=== PATIENT | female | born 1995 | race Hispanic/Latino ===

== ENCOUNTER 2017-10-29 20:06 | Emergency (ER) | payer SELFPAY ==
[2017-10-29 21:28] LABS: Urine Blood 1+ (NEG); Urine Glucose NEGATIVE (NEG); Urine Protein TRACE (NEG); Urine Specific Gravity 1.025 (1.005-1.030); Urine pH 6.5 (5.0-7.0)
[2017-10-29] MEDS ORDERED: ONDANSETRON 4 MG/2 ML VIAL ONE (21:33)
[2017-10-29] MEDS ORDERED: MORPHINE 4 MG/ML SYR ONE (21:33)
[2017-10-29] MEDS ORDERED: NA CHLORIDE 0.9% 1,000 ML ONE (21:33)
[2017-10-29 21:35] LABS: Absolute Lymphocytes (CBC) 1.4 K/uL (0.7-4.9); Absolute Monocytes 0.5 K/uL (0.1-1.3); Absolute Neutrophil 9.6 K/uL (1.8-8.0); Basophils % 0.3 % (0-1.3); Eosinophils % 0.3 % (0-4.4); Hematocrit 43.1 % (36.0-45.0); Lymphocytes % 12.5 % (15.3-44.8); MCH 30.1 pg (27.0-35.0); MCV 89.2 fL (80-100); MPV 10.3 fL (7.6-11.3); Monocytes % 4.1 % (3.3-12.3); RBC Red Blood Cell Count 4.83 M/uL (3.86-4.86)
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
[2017-10-29 21:48] LABS: BUN Blood Urea Nitrogen 15 mg/dL (6-20); Bicarbonate 25 mEq/L (21-31); Glucose Level 95 mg/dL (65-120); Potassium 3.8 mEq/L (3.6-5.0); Sodium Level 135 mEq/L (135-145)
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
[2017-10-29 22:28] VITALS: TEMP 98.1
[2017-10-29 22:30] VITALS: BP 126/87; O2SAT 98
== END 2017-10-29 22:11 | disposition home or self-care (01) ==
LOC: ER 20:06
DX: N39.0 Urinary tract infection, site not specified (principal); M62.838 Other muscle spasm
CPT/HCPCS: 36415; 70450; 72125; 80048; 81003; 81025; 85025; 96361; 96374; 96375; 99284; J2405; J7030

== ENCOUNTER 2018-01-19 12:27 | Emergency (ER) | payer OTHER, SELFPAY ==
[2018-01-19] MEDS ORDERED: NA CHLORIDE 0.9% 1,000 ML ONE (13:35)
[2018-01-19 13:44] LABS: Absolute Lymphocytes (CBC) 1.6 K/uL (0.7-4.9); Absolute Monocytes 0.5 K/uL (0.1-1.3); Absolute Neutrophil 6.5 K/uL (1.8-8.0); Basophils % 0.5 % (0-1.3); Eosinophils % 0.5 % (0-4.4); Hematocrit 40.2 % (36.0-45.0); Lymphocytes % 17.9 % (15.3-44.8); MCH 30.2 pg (27.0-35.0); MCV 90.7 fL (80-100); MPV 10.8 fL (7.6-11.3); Monocytes % 5.9 % (3.3-12.3); RBC Red Blood Cell Count 4.43 M/uL (3.86-4.86)
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
--- NOTE | 2018-01-19 16:53 | EDPHYS ---
Physician Documentation [facility] Name: Apolonia Montero Age: 22 yrs Sex: Female : 1995 Arrival Date: 01/19/2018 Time: 12:29 Bed 8 Private MD: None, None ED Physician Pernell Meza HPI: 01/19 13:38 This 22 yrs old Female presents to ER via Ambulatory with complaints of lawrence PREG,ABD CRAMPING LMP 12/01/17. 13:38 The patient presents with abdominal pain in the upper abdomen, in the lower abdomen. lawrence Onset: The symptoms/episode began/occurred 2 day(s) ago. The patient presents to the emergency department with possible uterine contractions. The estimated gestational age is 8 weeks. Associated signs and symptoms: The patient has no apparent associated signs or symptoms. 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 - Social history:: Smoking status: Patient/guardian denies using tobacco, Patient/guardian denies using alcohol, street drugs. - Ebola Screening: : Patient negative for fever greater than or equal to 101.5 degrees Fahrenheit, and additional compatible Ebola Virus Disease symptoms Patient denies exposure to infectious person Patient denies travel to an Ebola-affected area in the 21 days before illness onset No symptoms or risks identified at this time. - Family history:: not pertinent. ROS: 13:38 Constitutional: Negative for fever, chills, and weight loss, Eyes: Negative for injury, lawrence pain, redness, and discharge, ENT: Negative for injury, pain, and discharge, Neck: Negative for injury, pain, and swelling, Cardiovascular: Negative for chest pain, palpitations, and edema, Respiratory: Negative for shortness of breath, cough, wheezing, and pleuritic chest pain, Abdomen/GI: Negative for abdominal pain, nausea, vomiting, diarrhea, and constipation, Back: Negative for injury and pain, : Negative for injury, bleeding, discharge, and swelling, MS/Extremity: Negative for injury and deformity, Skin: Negative for injury, rash, and discoloration, Neuro: Negative for headache, weakness, numbness, tingling, and seizure, Psych: Negative for depression, anxiety, suicide ideation, homicidal ideation, and hallucinations, Allergy/Immunology: Negative for hives, rash, and allergies, Endocrine: Negative for neck swelling, polydipsia, polyuria, polyphagia, and marked weight changes, Hematologic/Lymphatic: Negative for swollen nodes, abnormal bleeding, and unusual bruising. Exam: 13:38 Constitutional: This is a well developed, well nourished patient who is awake, alert, lawrence and in no acute distress. Head/Face: Normocephalic, atraumatic. Eyes: Pupils equal round and reactive to light, extra-ocular motions intact. Lids and lashes normal. Conjunctiva and sclera are non-icteric and not injected. Cornea within normal limits. Periorbital areas with no swelling, redness, or edema. ENT: Nares patent. No nasal discharge, no septal abnormalities noted. Tympanic membranes are normal and external auditory canals are clear. Oropharynx with no redness, swelling, or masses, exudates, or evidence of obstruction, uvula midline. Mucous membranes moist. Neck: Trachea midline, no thyromegaly or masses palpated, and no cervical lymphadenopathy. Supple, full range of motion without nuchal rigidity, or vertebral point tenderness. No Meningismus. Chest/axilla: Normal chest wall appearance and motion. Nontender with no deformity. No lesions are appreciated. Cardiovascular: Regular rate and rhythm with a normal S1 and S2. No gallops, murmurs, or rubs. Normal PMI, no JVD. No pulse deficits. Respiratory: Lungs have equal breath sounds bilaterally, clear to auscultation and percussion. No rales, rhonchi or wheezes noted. No increased work of breathing, no retractions or nasal flaring. Abdomen/GI: Soft, non-tender, with normal bowel sounds. No distension or tympany. No guarding or rebound. No evidence of tenderness throughout. Back: No spinal tenderness. No costovertebral tenderness. Full range of motion. Skin: Warm, dry with normal turgor. Normal color with no rashes, no lesions, and no evidence of cellulitis. MS/ Extremity: Pulses equal, no cyanosis. Neurovascular intact. Full, normal range of motion. Neuro: Awake and alert, GCS 15, oriented to person, place, time, and situation. Cranial nerves II-XII grossly intact. Motor strength 5/5 in all extremities. Sensory grossly intact. Cerebellar exam normal. Normal gait. Psych: Awake, alert, with orientation to person, place and time. Behavior, mood, and affect are within normal limits. Vital Signs: 12:40 BP 137 / 83; Pulse 72; Resp 18; Temp 97.8; Pulse Ox 99% on R/A; Weight 95.25 kg; Height ch 5 ft. 5 in. (165.10 cm); Pain 0/10; 14:23 BP 101 / 53; Pulse 69; Resp 18; Pulse Ox 99% ; sv 15:20 BP 106 / 60; Pulse 81; Resp 16; Pulse Ox 100% on R/A; tw2 16:22 BP 129 / 68; Pulse 77; Resp 17; Pulse Ox 100% on R/A; tw2 17:00 BP 106 / 64; Pulse 83; Resp 18; Pulse Ox 99% ; sv 18:40 BP 112 / 60; Pulse 80; Resp 16; Pulse Ox 98% ; sv 12:40 Body Mass Index 34.95 (95.25 kg, 165.10 cm) MDM: 13:13 Patient medically screened. [facility] 13:39 Data reviewed: vital signs, nurses notes, lab test result(s), radiologic studies, lawrence ultrasound. 01/19 13:14 Order name: Quantitative Hcg; Complete Time: 18:39 [facility] 01/19 13:14 Order name: Abo/rh Typing; Complete Time: 14:53 [facility] 01/19 13:14 Order name: Basic Metabolic Panel; Complete Time: 18:39 [facility] 01/19 13:14 Order name: CBC with Diff; Complete Time: 14:53 [facility] 01/19 13:14 Order name: Urine Culture [facility] 01/19 13:37 Order name: LFT's; Complete Time: 18:39 [facility] 01/19 12:41 Order name: Urine Dipstick-Ancillary (obtain specimen); Complete Time: 13:00 01/19 12:41 Order name: Urine Test (obtain specimen); Complete Time: 13:00 01/19 13:14 Order name: IV Saline Lock; Complete Time: 13:27 [facility] 01/19 13:14 Order name: Labs collected and sent; Complete Time: 13:28 [facility] 01/19 13:14 Order name: US Transvaginal Ob; Complete Time: 15:15 [facility] 01/19 13:37 Order name: Lipase; Complete Time: 18:39 [facility] 01/19 16:09 Order name: ABO/RH no charge; Complete Time: 16:22 [facility] 01/19 13:14 Order name: NPO; Complete Time: 13:28 [facility] Administered Medications: 13:42 Drug: NS 0.9% 1000 ml Route: IV; Rate: 1 bolus; Site: right antecubital; tw2 15:00 Follow up: Response: No adverse reaction; IV Status: Completed infusion; IV Intake: tw2 1000ml Disposition: 01/19/18 16:52 Discharged to Home. Impression: related conditions, unspecified, first trimester, Cystitis. - Condition is Stable. - Discharge Instructions: Dysuria, First Trimester of , [id number], First Trimester of , Pelvic Rest. - Prescriptions for Vitamin 27- 0.8 mg Oral Tablet - take 1 tablet by ORAL route once daily; 30 tablet. Macrobid 100 mg Oral Capsule - take 1 capsule by ORAL route every 12 hours for 7 days; 14 capsule. - Medication Reconciliation Form, Thank You Letter, Antibiotic Education, Prescription Opioid Use, Work release form form. - Follow up: Private Physician; When: 2 - 3 days; Reason: Recheck today's complaints, Continuance of care, Re-evaluation by your physician. Follow up: Ziyad Pastor; When: 2 - 3 days; Reason: Recheck today's complaints, Re-evaluation by your physician. - Problem is new. - Symptoms have improved. Signatures: Dispatcher [employer] EDElisa Flores RN RN ch Anderson, Corey, MD MD cha Wise, Tara RN RN tw2 Corrections: (The following items were deleted from the chart) 18:58 16:52 01/19/2018 16:52 Discharged to Home. Impression: related conditions, tw2 unspecified, first trimester; Cystitis. Condition is Stable. Discharge Instructions: Dysuria, First Trimester of , [id number], First Trimester of , Pelvic Rest. Prescriptions for Vitamin 27-0.8 mg Oral Tablet - take 1 tablet by ORAL route once daily; 30 tablet, Macrobid 100 mg Oral Capsule - take 1 capsule by ORAL route every 12 hours for 7 days; 14 capsule. and Forms are Medication Reconciliation Form, Thank You Letter, Antibiotic Education, Prescription Opioid Use. Follow up: Private Physician; When: 2 - 3 days; Reason: Recheck today's complaints, Continuance of care, Re-evaluation by your physician. Follow up: Ziyad Pastor; When: 2 - 3 days; Reason: Recheck today's complaints, Re-evaluation by your physician. Problem is new. Symptoms have improved. lawrence
--- NOTE | 2018-01-19 16:53 | ER ---
Nurse's Notes [facility] Name: Apolonia Montero Age: 22 yrs Sex: Female : 1995 Arrival Date: 01/19/2018 Time: 12:29 Bed 8 Private MD: None, None Diagnosis: related conditions, unspecified, first trimester;Cystitis Presentation: 01/19 12:38 Presenting complaint: Patient states: PAIN TO EPIGASTRIC, MICHAEL SIDES OF ABDOMEN, MICHAEL ch "OVARIES" ALTERNATING, PINCHING TO "SIDE OF VAGINA" R SIDE. 12:39 Transition of care: patient was not received from another setting of care. Onset of ch symptoms was January 17, 2018. Risk Assessment: Do you want to hurt yourself or someone else? Patient reports no desire to harm self or others. Initial Sepsis Screen: Does the patient meet any 2 criteria? No. Patient's initial sepsis screen is negative. Does the patient have a suspected source of infection? No. Patient's initial sepsis screen is negative. Care prior to arrival: None. 12:39 Method Of Arrival: Ambulatory 12:39 Acuity: APRYL 3 ch Triage Assessment: 12:40 General: Appears in no apparent distress. comfortable, Behavior is calm, cooperative, ch appropriate for age. Pain: Complains of pain in epigastric area, anterior aspect of right lateral abdomen, anterior aspect of left lateral abdomen, right upper quadrant, left upper quadrant and pelvis Pain currently is 0 out of 10 on a pain scale. at worst was 8 out of 10 on a pain scale. Neuro: No deficits noted. 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 - Social history:: Smoking status: Patient/guardian denies using tobacco, Patient/guardian denies using alcohol, street drugs. - Ebola Screening: : Patient negative for fever greater than or equal to 101.5 degrees Fahrenheit, and additional compatible Ebola Virus Disease symptoms Patient denies exposure to infectious person Patient denies travel to an Ebola-affected area in the 21 days before illness onset No symptoms or risks identified at this time. - Family history:: not pertinent. Screenin:06 Abuse screen: Denies threats or abuse. Nutritional screening: No deficits noted. tw2 Tuberculosis screening: No symptoms or risk factors identified. Fall Risk None identified. Assessment: 13:04 Reassessment: pt instructed NPO at this time. General: Appears in no apparent distress. tw2 distressed, comfortable. Pain: Complains of pain in pelvis and left upper quadrant and right upper quadrant and epigastric area. Neuro: Level of Consciousness is awake, alert, obeys commands, Oriented to person, place, time, situation. Cardiovascular: Denies chest pain, shortness of breath, Heart tones S1 S2 Patient's skin is warm and dry. Respiratory: Airway is patent Respiratory effort is even, unlabored, Respiratory pattern is regular, symmetrical. GI: Abdomen is flat, Bowel sounds present X 4 quads. Reports lower abdominal pain, upper abdominal pain, nausea. : Reports white vaginal discharge at times. EENT: No signs and/or symptoms were reported regarding the EENT system. Derm: No signs and/or symptoms reported regarding the dermatologic system. Musculoskeletal: Range of motion: intact in all extremities. 14:10 Reassessment: Patient appears in no apparent distress at this time. No changes from tw2 previously documented assessment. Patient and/or family updated on plan of care and expected duration. Pain level reassessed. Patient is alert, oriented x 3, equal unlabored respirations, skin warm/dry/pink. 15:20 Reassessment: Patient appears in no apparent distress at this time. No changes from tw2 previously documented assessment. Patient and/or family updated on plan of care and expected duration. Pain level reassessed. Patient is alert, oriented x 3, equal unlabored respirations, skin warm/dry/pink. 16:23 Reassessment: Patient appears in no apparent distress at this time. No changes from tw2 previously documented assessment. Patient and/or family updated on plan of care and expected duration. Pain level reassessed. Patient is alert, oriented x 3, equal unlabored respirations, skin warm/dry/pink. 17:55 Reassessment: Patient appears in no apparent distress at this time. No changes from tw2 previously documented assessment. Patient and/or family updated on plan of care and expected duration. Pain level reassessed. Patient is alert, oriented x 3, equal unlabored respirations, skin warm/dry/pink. 18:55 Reassessment: Patient appears in no apparent distress at this time. No changes from tw2 previously documented assessment. Patient and/or family updated on plan of care and expected duration. Pain level reassessed. Patient is alert, oriented x 3, equal unlabored respirations, skin warm/dry/pink. Vital Signs: 12:40 BP 137 / 83; Pulse 72; Resp 18; Temp 97.8; Pulse Ox 99% on R/A; Weight 95.25 kg; Height ch 5 ft. 5 in. (165.10 cm); Pain 0/10; 14:23 BP 101 / 53; Pulse 69; Resp 18; Pulse Ox 99% ; sv 15:20 BP 106 / 60; Pulse 81; Resp 16; Pulse Ox 100% on R/A; tw2 16:22 BP 129 / 68; Pulse 77; Resp 17; Pulse Ox 100% on R/A; tw2 17:00 BP 106 / 64; Pulse 83; Resp 18; Pulse Ox 99% ; sv 18:40 BP 112 / 60; Pulse 80; Resp 16; Pulse Ox 98% ; sv 12:40 Body Mass Index 34.95 (95.25 kg, 165.10 cm) ED Course: 12:29 Patient arrived in ED. sb2 12:30 None, None is Private Physician. sb2 12:39 Triage completed. ch 12:40 Arm band placed on left wrist. Patient placed in waiting room. ch 12:59 Almita Pandya, RN is Primary Nurse. tw2 13:06 Bed in low position. Call light in reach. Adult w/ patient. Pulse ox on. NIBP on. tw2 13:13 Pernell Meza MD is Attending Physician. lawrence 13:17 Radiology exam delayed due to lab results not completed at this time. (HCG). lc3 13:24 Inserted saline lock: 22 gauge in right antecubital area, using aseptic technique. tw2 Blood collected. 13:40 US Transvaginal Ob In Process Unspecified. EDMS 16:52 Ziyad Pastor MD is Referral Physician. lawrence 17:11 Awaiting lab results, Awaiting: prior to discharge. tw2 17:45 Awaiting lab results, Awaiting: spoke with Mara Acosta in lab checking on results on tw2 lipase and lfts, 20 minutes needed for additional results, provider notified. 18:58 No provider procedures requiring assistance completed. IV discontinued, intact, tw2 bleeding controlled, No redness/swelling at site. Pressure dressing applied. Administered Medications: 13:42 Drug: NS 0.9% 1000 ml Route: IV; Rate: 1 bolus; Site: right antecubital; tw2 15:00 Follow up: Response: No adverse reaction; IV Status: Completed infusion; IV Intake: tw2 1000ml Intake: 15:00 IV: 1000ml; Total: 1000ml. tw2 Outcome: 16:52 Discharge ordered by MD. bravo 18:58 Patient left the ED. tw2 18:58 Discharged to home ambulatory. tw2 18:58 Condition: stable 18:58 Discharge instructions given to patient, Instructed on discharge instructions, follow up and referral plans. medication usage, Demonstrated understanding of instructions, follow-up care, medications, Prescriptions given X 2. Addendum: 01/22/2018 07:45 Addendum: Culture Results: Positive urine culture. No further action required. Bacteria i w sensitive to prescribed antibiotic. Signatures: Dispatcher [employer] EDElisa Flores, RN RN Silvia Emery RN RN sv Anderson, Corey, MD MD cha Williams, Irene, RN RN iw Cunningham, Laulita lc3 Wise, Tara, RN RN tw2 Chayito Escobar sb2
[2018-01-19 17:56] LABS: BUN Blood Urea Nitrogen 10 mg/dL (7-18); Bicarbonate 25 mmol/L (21-32); Glucose Level 81 mg/dL (74-106); Potassium 3.7 mmol/L (3.5-5.1); Sodium Level 136 mmol/L (136-145)
[2018-01-19 18:32] LABS: HCG, Quantitative 4613 mIU/mL (1-3)
[2018-01-19 18:36] LABS: ALT/SGPT 16 U/L (12-78); AST/SGOT 18 U/L (15-37); Albumin 3.9 g/dL (3.4-5.0); Alkaline Phosphatase 83 U/L (45-117); Bilirubin Direct < 0.1 mg/dL (0-0.2); Bilirubin Total 0.4 mg/dL (0.2-1.0); Lipase 121 U/L (73-393); Protein, Total 7.1 g/dL (6.4-8.2)
[2018-01-19 19:05] VITALS: TEMP 97.8
[2018-01-19 19:11] VITALS: BP 112/60; O2SAT 98
== END 2018-01-19 18:58 | disposition home or self-care (01) ==
LOC: ER 12:27
DX: O23.11 Infections of bladder in pregnancy, first trimester (principal)
CPT/HCPCS: 36415; 76817; 80048; 80076; 83690; 84702; 85025; 86900; 86901; 87077; 87086; 87088; 87186; 96360; 99284; J7030

== ENCOUNTER 2019-01-02 13:19 | Emergency (ER) | payer OTHER, SELFPAY ==
--- OUTSIDE RECORDS SUMMARY | 2019-01-02 13:22 | XMS REPORT ---
:1995 [facility] [address] [place] [id number] Care Team Providers Name Role Phone Unavailable Unavailable Unavailable Problems This patient has no known problems. Allergies, Adverse Reactions, Alerts This patient has no known allergies or adverse reactions. Medications This patient has no known medications.
[2019-01-02 13:50] LABS: Urine Blood NEGATIVE (NEG); Urine Glucose NEGATIVE (NEG); Urine Protein NEGATIVE (NEG); Urine Specific Gravity 1.025 (1.005-1.030)
[2019-01-02] MEDS ORDERED: ONDANSETRON 4 MG/2 ML VIAL ONE (14:02)
[2019-01-02] MEDS ORDERED: NA CHLORIDE 0.9% 1,000 ML ONE (14:02)
[2019-01-02] MEDS ORDERED: KETOROLAC 30 MG/ML INJ ONE (14:02)
[2019-01-02 14:22] LABS: Absolute Lymphocytes (CBC) 1.9 K/uL (0.7-4.9); Basophils % 0.8 % (0-1.3); Lymphocytes % 26.2 % (15.3-44.8); MPV 11.4 fL (7.6-11.3); RBC Red Blood Cell Count 4.29 M/uL (3.86-4.86)
[2019-01-02 14:35] LABS: ALT/SGPT 18 U/L (12-78); AST/SGOT 14 U/L (15-37); Albumin 3.8 g/dL (3.4-5.0); Alkaline Phosphatase 94 U/L (45-117); BUN Blood Urea Nitrogen 13 mg/dL (7-18); Bicarbonate 28 mmol/L (21-32); Bilirubin Direct < 0.1 mg/dL (0-0.2); Bilirubin Total 0.1 mg/dL (0.2-1.0); Glucose Level 83 mg/dL (74-106); Lipase 151 U/L (73-393); Potassium 4.2 mmol/L (3.5-5.1); Protein, Total 7.3 g/dL (6.4-8.2); Sodium Level 145 mmol/L (136-145)
[2019-01-02] MEDS ORDERED: CEFTRIAXONE/SWI 1gm 1 GM/10 ML SYR ONE (15:17)
--- NOTE | 2019-01-02 16:20 | ER ---
Nurse's Notes [facility] Name: Apolonia Montero Age: 23 yrs Sex: Female : 1995 Arrival Date: 01/02/2019 Time: 13:23 Bed 20 Private MD: Diagnosis: Female pelvic inflammatory disease, unspecified Presentation: 01/02 13:25 Presenting complaint: Patient states: im having bad pain on my bladder area, hj (suprapubic area), it doesn't burn when i pee, its been on and off for a couple of weeks now; denies fever and chills; reports nausea;. Transition of care: patient was not received from another setting of care. Onset of symptoms was January 02, 2019. Risk Assessment: Do you want to hurt yourself or someone else? Patient reports no desire to harm self or others. Initial Sepsis Screen: Does the patient meet any 2 criteria? No. Patient's initial sepsis screen is negative. Does the patient have a suspected source of infection? No. Patient's initial sepsis screen is negative. Care prior to arrival: None. 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 Nutritional screening: No deficits noted. em Tuberculosis screening: No symptoms or risk factors identified. Fall Risk None identified. Assessment: 13:44 General: Appears in no apparent distress. uncomfortable, Behavior is calm, cooperative, em Denies fever. Pain: Complains of pain in suprapubic area Pain currently is 8 out of 10 on a pain scale. Neuro: Level of Consciousness is awake, alert, obeys commands, Oriented to person, place, time, situation. Cardiovascular: Capillary refill < 3 seconds Patient's skin is warm and dry. Respiratory: Airway is patent Respiratory effort is even, unlabored, Respiratory pattern is regular, symmetrical. : Reports discharge, Denies burning with urination, vaginal bleeding. Derm: Skin is intact, is healthy with good turgor, Skin is pink, warm \T\ dry. Musculoskeletal: Capillary refill < 3 seconds, Range of motion: intact in all extremities. 13:44 GI: Abdomen is flat, Patient currently denies nausea, vomiting. em 14:41 Reassessment: Patient appears in no apparent distress at this time. Patient and/or em family updated on plan of care and expected duration. Pain level reassessed. Patient is alert, oriented x 3, equal unlabored respirations, skin warm/dry/pink. rates pain 4/10 Patient states feeling better. Patient states symptoms have improved. 16:33 Reassessment: Patient appears in no apparent distress at this time. Patient and/or em family updated on plan of care and expected duration. Pain level reassessed. Patient is alert, oriented x 3, equal unlabored respirations, skin warm/dry/pink. Patient denies pain at this time. Patient states feeling better. Vital Signs: 13:27 BP 114 / 68; Pulse 62; Resp 18; Temp 98.4(O); Pulse Ox 100% on R/A; Weight 86.18 kg; hj Height 5 ft. 5 in. (165.10 cm); Pain 8/10; 14:41 BP 116 / 80; Pulse 71; Resp 18; Pulse Ox 99% on R/A; Pain 4/10; em 16:34 BP 112 / 68; Pulse 81; Resp 16; Pulse Ox 99% on R/A; Pain 0/10; em 13:27 Body Mass Index 31.62 (86.18 kg, 165.10 cm) ED Course: 13:23 Patient arrived in ED. mr 13:27 Triage completed. hj 13:27 Arm band placed on left wrist. hj 13:33 Jaxson Perez LVN is Primary Nurse. em 13:35 Pernell Berman PA is PHCP. cp 13:35 Rashard Frazier MD is Attending Physician. cp 13:43 Patient has correct armband on for positive identification. Placed in gown. Bed in low em position. Call light in reach. Pulse ox on. NIBP on. 14:30 Assist provider with pelvic exam: Set up pelvic tray. Performed by Pernell GROSSMAN iw Specimens sent to lab. Patient tolerated well. 16:05 Ultrasound completed. Patient tolerated well. Notified AUTOMATION TEST DEVELOPER/PA page. sg3 16:05 US Transvaginal Study (Probe) In Process Unspecified. EDMS 16:48 IV discontinued, intact, bleeding controlled, No redness/swelling at site. Pressure em dressing applied. Administered Medications: 13:58 CANCELLED (Physician Discretion): morphine 2 mg IVP once cp 14:10 Drug: NS 0.9% 1000 ml Route: IV; Rate: 1 bolus; Site: right antecubital; em 16:35 Follow up: IV Status: Completed infusion; IV Intake: 1000ml em 14:10 Drug: TORadol 30 mg Route: IVP; Site: right antecubital; iw 15:13 Follow up: Response: No adverse reaction; Pain is decreased em 15:24 Not Given (Patient Refused): Zofran 4 mg IVP once; over 2 minutes em 15:29 Drug: Rocephin - (cefTRIAXone) 1 grams Route: IVPB; Infused Over: 30 mins; Site: right iw antecubital; 16:35 Follow up: Response: No adverse reaction; IV Status: Completed infusion; IV Intake: 10mlem Intake: 16:35 IV: 10ml; Total: 10ml. em 16:35 IV: 1000ml; Total: 1010ml. em Outcome: 16:19 Discharge ordered by MD. cp 16:48 Discharged to home ambulatory. em 16:48 Condition: good 16:48 Discharge instructions given to patient, Instructed on discharge instructions, follow up and referral plans. medication usage, Demonstrated understanding of instructions, follow-up care, medications, Prescriptions given X 5 16:49 Patient left the ED. em Signatures: Dispatcher [employer] EDID Kim Ortez, Jaxsno, HOUSEKEEPING ASSOCIATE HOUSEKEEPING ASSOCIATE em Yudith Richard RN RN iw Sahil Gonzales RN RN hj Page, Corey, PA PA cp Godinez, Sarah sg3 Corrections: (The following items were deleted from the chart) 13:30 13:27 Pulse 62bpm; Resp 18bpm; Pulse Ox 100% RA; Temp 98.4F Oral; 86.18 kg; Height 5 hj ft. 5 in.; BMI: 31.6; Pain 8/10; hj
--- NOTE | 2019-01-02 16:20 | EDPHYS ---
Physician Documentation [facility] Name: Apolonia Montero Age: 23 yrs Sex: Female : 1995 Arrival Date: 01/02/2019 Time: 13:23 Bed 20 Private MD: ED Physician Rashard Frazier HPI: 01/02 13:50 This 23 yrs old Female presents to ER via Ambulatory with complaints of cp Vaginal Pain. 13:50 The patient presents with pelvic pain, vaginal discharge. Onset: The symptoms/episode cp began/occurred 2 week(s) ago. Associated signs and symptoms: Pertinent positives: nausea, Pertinent negatives: constipation, diarrhea, dysuria, fever, vaginal bleeding. Severity of symptoms: in the emergency department the symptoms are unchanged, despite home interventions. 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 cp 14:00 Eyes: Negative for injury, pain, redness, and discharge. cp 14:00 ENT: Negative for drainage from ear(s), ear pain, sore throat, difficulty swallowing, difficulty handling secretions. 14:00 Cardiovascular: Negative for chest pain, palpitations. 14:00 Respiratory: Negative for cough, shortness of breath, wheezing. 14:00 Abdomen/GI: Negative for vomiting, diarrhea, constipation, black/tarry stool, rectal bleeding. 14:00 : Positive for pelvic pain, vaginal discharge, Negative for urinary symptoms, flank pain, vaginal bleeding. 14:00 Skin: Negative for rash. 14:00 All other systems are negative. Exam: 14:50 Head/Face: Normocephalic, atraumatic. cp 14:50 Constitutional: The patient appears in no acute distress, alert, awake, non-toxic, well developed, well nourished, uncomfortable. 14:50 Eyes: Periorbital structures: appear normal, Conjunctiva: normal, no exudate, no injection, Sclera: no appreciated abnormality, Lids and lashes: appear normal, bilaterally. 14:50 ENT: External ear(s): are unremarkable, Nose: is normal, Mouth: Lips: moist, Oral mucosa: moist, Posterior pharynx: is normal, airway is patent, no erythema, no exudate. 14:50 Chest/axilla: Inspection: normal, Palpation: is normal, no crepitus, no tenderness. 14:50 Cardiovascular: Rate: normal, Rhythm: regular. 14:50 Respiratory: the patient does not display signs of respiratory distress, Respirations: normal, no use of accessory muscles, no retractions, no splinting, no tachypnea, labored breathing, is not present, Breath sounds: are clear throughout, no decreased breath sounds, no stridor, no wheezing. 14:50 Abdomen/GI: Inspection: abdomen appears normal, Bowel sounds: active, all quadrants, Palpation: soft, in all quadrants, moderate abdominal tenderness, in the suprapubic area, rebound tenderness, is not appreciated, voluntary guarding, is elicited in the suprapubic area. 14:50 : Pelvic Exam: External exam: is normal, Speculum exam: no bleeding is noted, os that is closed, bimanual exam reveals cervical motion tenderness, uterine tenderness, right adnexal tenderness, left adnexal tenderness, no adnexal mass on right, no adnexal mass on left, discharge, white, yellow, the nurse was present for the exam. 14:50 Skin: no rash present. Vital Signs: 13:27 BP 114 / 68; Pulse 62; Resp 18; Temp 98.4(O); Pulse Ox 100% on R/A; Weight 86.18 kg; hj Height 5 ft. 5 in. (165.10 cm); Pain 8/10; 14:41 BP 116 / 80; Pulse 71; Resp 18; Pulse Ox 99% on R/A; Pain 4/10; em 16:34 BP 112 / 68; Pulse 81; Resp 16; Pulse Ox 99% on R/A; Pain 0/10; em 13:27 Body Mass Index 31.62 (86.18 kg, 165.10 cm) MDM: 13:41 Patient medically screened. cp 14:00 Differential diagnosis: cervicitis, ectopic , nonspecific abdominal pain, cp ovarian cyst, pelvic inflammatory disease, urinary tract infection, vaginosis. 16:15 Data reviewed: vital signs, nurses notes, lab test result(s), radiologic studies, cp ultrasound. 16:15 Counseling: I had a detailed discussion with the patient and/or guardian regarding: the cp historical points, exam findings, and any diagnostic results supporting the discharge/admit diagnosis, lab results, radiology results, the need for outpatient follow up, an OB/Gyne specialist, to return to the emergency department if symptoms worsen or persist or if there are any questions or concerns that arise at home. Response to treatment: the patient's symptoms have markedly improved after treatment, and as a result, I will discharge patient. Special discussion: Based on the patient's Hx, exam, and Dx evaluation, there is no indication for emergent surgery or inpatient Tx. It is understood by the patient/guardian that if the Sx's persist or worsen they need to return immediately for re-evaluation. 01/02 13:47 Order name: Urine Dipstick--Ancillary (enter results); Complete Time: 14:30 eb 01/02 13:47 Order name: Urine --Ancillary (enter results); Complete Time: 14:30 eb 01/02 13:56 Order name: Basic Metabolic Panel; Complete Time: 14:48 cp 01/02 13:56 Order name: CBC with Diff; Complete Time: 14:30 cp 01/02 14:31 Interpretation: Normal except: HGB 11.2; HCT 35.0; MCV 81.5; MCH 26.1; RDW 17.6; MPV cp 11.4. 01/02 13:56 Order name: Creatinine for Radiology; Complete Time: 14:48 cp 01/02 13:56 Order name: Hepatic Function; Complete Time: 14:48 cp 01/02 13:56 Order name: Lipase; Complete Time: 14:48 cp 01/02 13:58 Order name: GC (GONORR/CHLAMYDIA) Probe cp 01/02 13:58 Order name: Wet Prep; Complete Time: 15:11 cp 01/02 15:11 Interpretation: Reviewed. cp 01/02 14:49 Order name: US Transvaginal Study (Probe) cp 01/02 13:41 Order name: Urine Dipstick-Ancillary (obtain specimen); Complete Time: 13:48 cp 01/02 13:41 Order name: Urine Test (obtain specimen); Complete Time: 13:48 cp 01/02 13:56 Order name: IV Saline Lock; Complete Time: 14:43 cp 01/02 13:56 Order name: Labs collected and sent; Complete Time: 14:43 cp 01/02 13:58 Order name: Pelvic Exam Setup; Complete Time: 15:03 cp Administered Medications: 13:58 CANCELLED (Physician Discretion): morphine 2 mg IVP once cp 14:10 Drug: NS 0.9% 1000 ml Route: IV; Rate: 1 bolus; Site: right antecubital; em 16:35 Follow up: IV Status: Completed infusion; IV Intake: 1000ml em 14:10 Drug: TORadol 30 mg Route: IVP; Site: right antecubital; iw 15:13 Follow up: Response: No adverse reaction; Pain is decreased em 15:24 Not Given (Patient Refused): Zofran 4 mg IVP once; over 2 minutes em 15:29 Drug: Rocephin - (cefTRIAXone) 1 grams Route: IVPB; Infused Over: 30 mins; Site: right iw antecubital; 16:35 Follow up: Response: No adverse reaction; IV Status: Completed infusion; IV Intake: 10mlem Disposition: 17:26 Co-signature as Attending Physician, Rashard Frazier MD. rn Disposition: 01/02/19 16:19 Discharged to Home. Impression: Female pelvic inflammatory disease, unspecified. - Condition is Stable. - Discharge Instructions: Pelvic Inflammatory Disease, Pelvic Pain, Female. - Prescriptions for Zofran 4 mg Oral Tablet - take 1 tablet by ORAL route every 12 hours As needed; 20 tablet. Doxycycline Hyclate 100 mg Oral Tablet - take 1 tablet by ORAL route every 12 hours for 14 days; 28 tablet. Metronidazole 500 mg Oral Tablet - take 1 tablet by ORAL route every 8 hours for 14 days; 42 tablet. Tramadol 50 mg Oral Tablet - take 1 tablet by ORAL route every 8 hours as needed; 15 tablet. Ibuprofen 800 mg Oral Tablet - take 1 tablet by ORAL route every 8 hours As needed take with food; 30 tablet. - Medication Reconciliation Form, Thank You Letter, Antibiotic Education, Prescription Opioid Use form. - Follow up: Private Physician; When: 1 week; Reason: Recheck today's complaints. - Problem is new. - Symptoms have improved. Signatures: Dispatcher [employer] Jaxson Robin, PAINT TINTER PAINT TINTER em Yudith Richard RN RN iw Nieto, Roman, MD MD rn Joaquin, Henry, RN RN hj Page, Corey PA PA cp Corrections: (The following items were deleted from the chart) 13:58 13:58 morphine 2 mg IVP once ordered. cp cp 16:49 16:19 01/02/2019 16:19 Discharged to Home. Impression: Female pelvic inflammatory em disease, unspecified. Condition is Stable. Forms are Medication Reconciliation Form, Thank You Letter, Antibiotic Education, Prescription Opioid Use. Follow up: Private Physician; When: 1 week; Reason: Recheck today's complaints. Problem is new. Symptoms have improved. cp
[2019-01-02 16:55] VITALS: TEMP 98.4
[2019-01-02 16:56] VITALS: O2SAT 99
--- NOTE | 2019-01-02 16:57 | RAD REPORT ---
EXAM DESCRIPTION: US - Transvaginal Study Probe - 01/02/2019 4:07 pm CLINICAL HISTORY: Pelvic pain COMPARISON: none FINDINGS: The uterus measures 7 x 3 x 3cm. A fibroid is not seen. Endometrial stripe measures 14 mil limeters. The ovaries are normal in size and echotexture. The right and left adnexa unremarkable No significant free fluid is seen. IMPRESSION: No significant abnormality is displayed
[2019-01-02 16:58] VITALS: BP 112/68
== END 2019-01-02 16:49 | disposition home or self-care (01) ==
LOC: ER 13:19
DX: N73.9 Female pelvic inflammatory disease, unspecified (principal)
CPT/HCPCS: 36415; 76830; 80048; 80076; 81003; 81025; 83690; 85025; 87210; 87490; 87590; 96361; 96365; 96375; 99284; J0696; J2405; J7030

== ENCOUNTER 2019-04-19 12:39 | Emergency (ER) | payer SELFPAY ==
--- OUTSIDE RECORDS SUMMARY | 2019-04-19 12:41 | XMS REPORT | Summary of Care ---
:1995 Author Organization [facility] Address [address] [place] [id number] Care Team Providers Name Role Phone Hollie Arriaga [facility] Primary Care Provider Reason for Visit Reason Comments Assessment ER Visit Encounter Details Date Type Department Care Team Description 01/04/2019 Telephone [facility]- Hollie Arriaga, Assessment (ER Visit) [facility] [address] [facility] [address] [place], [place] [id number] Allergies Active Allergy Reactions Severity Noted Date Comments Metoclopramide Hcl Anxiety 03/15/2018 documented as of this encounter (statuses as of 01/04/2019) Medications Medication Sig Dispensed Refills Start Date End Date Status proMETHazine 25 mg Take 1 tablet by 30 tablet 0 02/11/2018 Active tabletIndications: mouth every 6 Nausea and vomiting (six) hours as during needed for prior to 22 weeks Nausea and gestation Vomiting (N/V). proMETHazine 25 mg Insert 1 4 Suppository 1 02/28/2018 Active suppository Suppository into rectum every 4 (four) hours as needed for Nausea and Vomiting (N/V). famotidine 20 mg Take 1 tablet by 60 tablet 3 03/04/2018 Active tablet mouth 2 (two) times daily. proCHLORperazine Insert 1 12 Suppository 0 03/15/2018 Active (COMPAZINE) 25 mg Suppository into suppository rectum every 12 (twelve) hours as needed for Nausea and Vomiting (N/V). proCHLORperazine 10 Take 1 tablet by 30 tablet 3 03/16/2018 Active mg tablet mouth every 6 (six) hours as needed for Nausea and Vomiting (N/V). doxylamine-pyridoxine Take 4 tablets 120 tablet 1 03/16/2018 Active , vit B6, (DICLEGIS) by mouth at 10-10 mg per bedtime. Take 1 tabletIndications: tab in the Nausea and vomiting morning, 1 tab during with lunch and 2 prior to 22 weeks tabs at bedtime. gestation documented as of this encounter (statuses as of 01/04/2019) Active Problems Problem Noted Date Glucose tolerance test abnormal 06/18/2018 12 weeks gestation of 03/15/2018 Rubella non-immune status, antepartum 03/11/2018 Dyspepsia 03/04/2018 Obesity in 02/27/2018 UTI (urinary tract infection) during 02/16/2018 Overview: MASHA at next visit -neg Supervision of high risk in third trimester 02/11/2018 Multiparity 02/11/2018 Marijuana use 02/11/2018 Overview: Reports due to nausea Ovarian cyst 02/11/2018 Overview: Per outside us[facility] see external provided records Atypical squamous cells of undetermined significance (ASCUS) on 10/20/2017 Papanicolaou smear of cervix Overview: Repeat pap in 12 months History of depression 10/13/2017 History of anxiety 09/05/2015 Nausea and vomiting during prior to 22 weeks gestation 08/22/2015 documented as of this encounter (statuses as of 01/04/2019) Resolved Problems Problem Noted Date Resolved Date Hyperemesis 03/07/2018 03/10/2018 Dehydration 02/27/2018 03/08/2018 11 weeks gestation of 02/27/2018 03/10/2018 Well woman exam 10/13/2017 02/11/2018 Contraceptive management 10/13/2017 02/11/2018 Nexplanon removal 10/13/2017 02/27/2018 Overview: Per patient reports was only for 2 years History of depression 09/05/2015 10/13/2017 UTI in , antepartum 08/11/2015 10/13/2017 Overview: Still current uti as of 10-06-15 Supervision of high risk , antepartum 08/09/2015 10/13/2017 BV (bacterial vaginosis) 08/09/2015 10/13/2017 documented as of this encounter (statuses as of 01/04/2019) Immunizations Name Administration Dates Next Due Influenza Virus Vaccine Quad .5 mL IM 6+ MO 06/30/2018, 03/19/2018 Influenza Virus Vaccine Quad IM 3+ YRS 08/08/2015 TDAP (ADACEL) VACCINE 12/14/2015 Tdap 06/30/2018 documented as of this encounter Social History Tobacco Use Types Packs/Day Years Used Date Never Smoker Smokeless Tobacco: Never Used Alcohol Use Drinks/Week oz/Week Comments No 0 Standard drinks or equivalent 0.0 Sex Assigned at Date Recorded Not on file Job Start Date Occupation Industry Not on file Not on file Not on file Travel History Travel Start Travel End No recent travel history available. documented as of this encounter Last Filed Vital Signs Not on filedocumented in this encounter Plan of Treatment Date Type Specialty Care Team Description 01/04/2019 Office Visit [facility], [facility] Room 01/04/2019 Office Visit [facility] Hollie Arriaga, [employer] [address] [place] [address] Health Maintenance Due Date Last Done Comments HPV VACCINES (1 - Female 2009 3-dose series) INFLUENZA VACCINE 01/31/2019 06/30/2018, 03/19/2018, 08/08/2015 CHLAMYDIA SCREENING 03/07/2019 03/07/2018, 02/12/2018, 02/11/2018, Additional history exists PAP SMEAR 10/13/2020 10/13/2017 DTaP,Tdap,and Td Vaccines 06/30/2028 06/30/2018, 12/14/2015 (3 - Td) PNEUMOCOCCAL 0-64 YEARS Aged Out No longer eligible COMBINED SERIES based on patient's age to complete this topic documented as of this encounter Results Not on filedocumented in this encounter Insurance Payer Benefit Plan / Subscriber ID Effective Phone Address Type Group Dates [facility] xxxxxxxxx 2018-[address] Medicaid HEALTH CHOICE - HEALTH CHOICE [id number] MANAGED MEDICAID [place], [place] [phone] documented as of this encounter Advance Directives Name Relationship Healthcare Agent Communication Relationship Bryant Styles Spouse Primary healthcare agent Kathleen Montero Mother [facility] healthcare [phone] agent (Mobile)
--- OUTSIDE RECORDS SUMMARY | 2019-04-19 12:41 | XMS REPORT ---
:1995 [facility] Address [address] [place] [address] [place] [id number] Care Team Providers Name Role Phone Unavailable Unavailable Unavailable Problems This patient has no known problems. Allergies, Adverse Reactions, Alerts This patient has no known allergies or adverse reactions. Medications This patient has no known medications.
--- NOTE | 2019-04-19 13:21 | EDPHYS ---
Physician Documentation [facility] Name: Apolonia Montero Age: 23 yrs Sex: Female : 1995 Arrival Date: 04/19/2019 Time: 12:41 Bed 18 Private MD: ED Physician Pernell Meza HPI: 04/19 13:16 This 23 yrs old Female presents to ER via Ambulatory with complaints of Flu lawrence Symptoms, Diarrhea, Abdominal Pain. 13:16 The patient presents to the emergency department with nausea, diarrhea, that is lawrence intermittent. Onset: The symptoms/episode began/occurred 2 day(s) ago. Possible causes: unknown. The symptoms are aggravated by nothing. The symptoms are alleviated by nothing. Associated signs and symptoms: Pertinent positives: abdominal pain, diarrhea, dysuria, fever, nausea. Severity of symptoms: At their worst the symptoms were mild in the emergency department the symptoms are unchanged. The patient has not experienced similar symptoms in the past. 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 - Social history:: Smoking status: Patient uses tobacco products, smokes one pack cigarettes per day. - Ebola Screening: : No symptoms or risks identified at this time. - Family history:: not pertinent. ROS: 13:16 Eyes: Negative for injury, pain, redness, and discharge, ENT: Negative for injury, lawrence pain, and discharge, Neck: Negative for injury, pain, and swelling, Cardiovascular: Negative for chest pain, palpitations, and edema, Respiratory: Negative for shortness of breath, cough, wheezing, and pleuritic chest pain, Back: Negative for injury and pain, : Negative for injury, bleeding, discharge, and swelling, MS/Extremity: Negative for injury and deformity, Skin: Negative for injury, rash, and discoloration, Neuro: Negative for headache, weakness, numbness, tingling, and seizure, Psych: Negative for depression, anxiety, suicide ideation, homicidal ideation, and hallucinations, Allergy/Immunology: Negative for hives, rash, and allergies, Endocrine: Negative for neck swelling, polydipsia, polyuria, polyphagia, and marked weight changes, Hematologic/Lymphatic: Negative for swollen nodes, abnormal bleeding, and unusual bruising. 13:16 Constitutional: Positive for chills, fever, malaise. 13:16 Abdomen/GI: Positive for abdominal pain, nausea, diarrhea, abdominal cramps. Exam: 13:16 Constitutional: This is a well developed, well nourished patient who is awake, alert, lawrence and in no acute distress. Head/Face: Normocephalic, atraumatic. Eyes: Pupils equal round and reactive to light, extra-ocular motions intact. Lids and lashes normal. Conjunctiva and sclera are non-icteric and not injected. Cornea within normal limits. Periorbital areas with no swelling, redness, or edema. ENT: Nares patent. No nasal discharge, no septal abnormalities noted. Tympanic membranes are normal and external auditory canals are clear. Oropharynx with no redness, swelling, or masses, exudates, or evidence of obstruction, uvula midline. Mucous membranes moist. Neck: Trachea midline, no thyromegaly or masses palpated, and no cervical lymphadenopathy. Supple, full range of motion without nuchal rigidity, or vertebral point tenderness. No Meningismus. Chest/axilla: Normal chest wall appearance and motion. Nontender with no deformity. No lesions are appreciated. Cardiovascular: Regular rate and rhythm with a normal S1 and S2. No gallops, murmurs, or rubs. Normal PMI, no JVD. No pulse deficits. Respiratory: Lungs have equal breath sounds bilaterally, clear to auscultation and percussion. No rales, rhonchi or wheezes noted. No increased work of breathing, no retractions or nasal flaring. Abdomen/GI: Soft, non-tender, with normal bowel sounds. No distension or tympany. No guarding or rebound. No evidence of tenderness throughout. Back: No spinal tenderness. No costovertebral tenderness. Full range of motion. Skin: Warm, dry with normal turgor. Normal color with no rashes, no lesions, and no evidence of cellulitis. MS/ Extremity: Pulses equal, no cyanosis. Neurovascular intact. Full, normal range of motion. Neuro: Awake and alert, GCS 15, oriented to person, place, time, and situation. Cranial nerves II-XII grossly intact. Motor strength 5/5 in all extremities. Sensory grossly intact. Cerebellar exam normal. Normal gait. Psych: Awake, alert, with orientation to person, place and time. Behavior, mood, and affect are within normal limits. Vital Signs: 12:49 BP 119 / 84; Pulse 118; Resp 20; Temp 98.2(TE); Pulse Ox 100% ; Weight 77.11 kg; Height hb 5 ft. 5 in. (165.10 cm); Pain 9/10; 13:23 BP 124 / 76; Pulse 113; Resp 16; Pulse Ox 100% ; jl7 12:49 Body Mass Index 28.29 (77.11 kg, 165.10 cm) hb MDM: 12:57 Patient medically screened. [facility] 13:19 Data reviewed: vital signs, nurses notes, lab test result(s), urinalysis, pyuria. [facility] 04/19 13:04 Order name: Urine Microscopic Only 04/19 13:12 Order name: Urine Dipstick--Ancillary (enter results) 04/19 13:04 Order name: Urine Dipstick-Ancillary (obtain specimen); Complete Time: 13:04 04/19 13:12 Order name: Urine --Ancillary (enter results) bd Administered Medications: 13:35 Drug: Rocephin (cefTRIAXone) 1 grams Route: IM; Site: right gluteus; [facility] 13:50 Follow up: Response: No adverse reaction [facility] Disposition: 04/19/19 13:20 Discharged to Home. Impression: Malaise and fatigue, Diarrhea, unspecified, Urinary tract infection, site not specified, Weakness. - Condition is Stable. - Discharge Instructions: Food Choices to Help Relieve Diarrhea, Adult, Diarrhea, Adult, Dysuria, Urinary Tract Infection, Adult, Weakness, Fatigue, Urinary Tract Infection, Adult, [id number], Diarrhea, Adult, [id number], Weakness, [id number]. - Prescriptions for Zofran 4 mg Oral Tablet - take 1 tablet by ORAL route every 12 hours As needed; 20 tablet. Bactrim DS 800- 160 mg Oral Tablet - take 1 tablet by ORAL route every 12 hours for 7 days; 14 tablet. - Medication Reconciliation Form, Thank You Letter, Antibiotic Education, Prescription Opioid Use form. - Follow up: Private Physician; When: 2 - 3 days; Reason: Recheck today's complaints, Continuance of care, Re-evaluation by your physician. - Problem is new. - Symptoms have improved. Signatures: Dispatcher [employer] EDMS Pernell Meza MD MD cha Williams, Irene RN RN Beatriz Felix, RN RN Andrew Hernandez RN RN [email or web address] Corrections: (The following items were deleted from the chart) 14:03 13:20 04/19/2019 13:20 Discharged to Home. Impression: Malaise and fatigue; Diarrhea, jl7 unspecified; Urinary tract infection, site not specified; Weakness. Condition is Stable. Forms are Medication Reconciliation Form, Thank You Letter, Antibiotic Education, Prescription Opioid Use. Follow up: Private Physician; When: 2 - 3 days; Reason: Recheck today's complaints, Continuance of care, Re-evaluation by your physician. Problem is new. Symptoms have improved. lawrence
--- NOTE | 2019-04-19 13:21 | ER ---
Nurse's Notes [facility] Name: Apolonia Montero Age: 23 yrs Sex: Female : 1995 Arrival Date: 04/19/2019 Time: 12:41 Bed 18 Private MD: Diagnosis: Malaise and fatigue;Diarrhea, unspecified;Urinary tract infection, site not specified;Weakness Presentation: 04/19 12:48 Presenting complaint: Abdominal cramping, nausea, headache, chills, and subjective hb fever x 2 days. Transition of care: patient was not received from another setting of care. Onset of symptoms was April 18, 2019. Risk Assessment: Do you want to hurt yourself or someone else? Patient reports no desire to harm self or others. Care prior to arrival: None. 12:48 Method Of Arrival: Ambulatory hb 12:48 Acuity: APRYL 3 hb 13:49 Initial Sepsis Screen: Does the patient meet any 2 criteria? HR > 90 bpm. No. Patient's jl7 initial sepsis screen is negative. Does the patient have a suspected source of infection? No. Patient's initial sepsis screen is negative. 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 - Social history:: Smoking status: Patient uses tobacco products, smokes one pack cigarettes per day. - Ebola Screening: : No symptoms or risks identified at this time. - Family history:: not pertinent. Screenin:08 Abuse screen: Denies threats or abuse. Denies injuries from another. Nutritional jl7 screening: No deficits noted. Tuberculosis screening: No symptoms or risk factors identified. Fall Risk None identified. Assessment: 13:08 General: Appears in no apparent distress. uncomfortable, Behavior is cooperative, jl7 anxious. Pain: Complains of pain in abdomen diffusely Pain currently is 9 out of 10 on a pain scale. Neuro: Level of Consciousness is awake, alert, obeys commands, Oriented to person, place, time, situation. Cardiovascular: Patient's skin is warm and dry. Respiratory: Airway is patent Respiratory effort is even, unlabored, Respiratory pattern is regular, symmetrical. GI: Abdomen is non-distended, Bowel sounds present X 4 quads. : No signs and/or symptoms were reported regarding the genitourinary system. EENT: No signs and/or symptoms were reported regarding the EENT system. Derm: Skin is pink, warm \T\ dry. 13:35 Reassessment: Pt will be discharged once shot time is up. jl7 Vital Signs: 12:49 BP 119 / 84; Pulse 118; Resp 20; Temp 98.2(TE); Pulse Ox 100% ; Weight 77.11 kg; Height hb 5 ft. 5 in. (165.10 cm); Pain 9/10; 13:23 BP 124 / 76; Pulse 113; Resp 16; Pulse Ox 100% ; jl7 12:49 Body Mass Index 28.29 (77.11 kg, 165.10 cm) hb ED Course: 12:41 Patient arrived in ED. mr 12:49 Triage completed. 12:49 Arm band placed on. 12:52 Andrew Plaza RN is Primary Nurse. jl7 12:57 Pernell Meza MD is Attending Physician. [facility] 13:08 Patient has correct armband on for positive identification. Bed in low position. Call jl7 light in reach. Side rails up X 1. Pulse ox on. NIBP on. 13:08 Urine collected: clean catch specimen, cloudy. jl7 13:49 No provider procedures requiring assistance completed. Patient did not have IV access jl7 during this emergency room visit. Administered Medications: 13:35 Drug: Rocephin (cefTRIAXone) 1 grams Route: IM; Site: right gluteus; jl7 13:50 Follow up: Response: No adverse reaction jl7 Outcome: 13:20 Discharge ordered by . [facility] 13:50 Discharged to home ambulatory. jl7 13:50 Condition: stable 13:50 Discharge instructions given to patient, Instructed on discharge instructions, follow up and referral plans. medication usage, Demonstrated understanding of instructions, follow-up care, medications, Prescriptions given X 2. 14:03 Patient left the ED. jl7 Signatures: Pernell Meza MD MD cha Rivera, Mary mr TrujilloBeatriz, RN RN Andrew Plaza RN RN jl7
[2019-04-19] MEDS ORDERED: CEFTRIAXONE 1000 MG/VIAL ONE (13:27)
[2019-04-19] MEDS ORDERED: LIDOCAINE 1% MPF 2 ML AMPULE ONE (13:27)
[2019-04-19 14:14] LABS: Urine Blood NEGATIVE (NEG); Urine Glucose NEGATIVE (NEG); Urine Protein TRACE (NEG)
[2019-04-19 14:24] LABS: Urine Bacteria 20-50 /HPF (<20); Urine Culture Reflex Order REFLEXED; Urine RBC NONE SEEN /HPF (NONE SEEN)
[2019-04-19 20:13] VITALS: TEMP 98.2; O2SAT 100
[2019-04-19 20:14] VITALS: BP 124/76
== END 2019-04-19 14:03 | disposition home or self-care (01) ==
LOC: ER 12:39
DX: N39.0 Urinary tract infection, site not specified (principal); R53.1 Weakness; R53.81 Other malaise; R53.83 Other fatigue; F17.210 Nicotine dependence, cigarettes, uncomplicated
CPT/HCPCS: 81003; 81015; 81025; 87086; 87088; 96372; 99284; J2001

== ENCOUNTER 2019-11-18 17:33 | Emergency (ER) | payer OTHER, SELFPAY ==
--- OUTSIDE RECORDS SUMMARY | 2019-11-18 17:36 | XMS REPORT | Summary of Care ---
:1995 Author Organization [facility] Address [address] [place] [id number] Care Team Providers Name Role Phone Pcp, Does Not Have A Primary Care Provider Reason for Visit Reason Comments Vaginal Problem Encounter Details Date Type Department Care Team Description 11/18/2019 Nurse Triage [facility] Heather Pedroza RN Vaginal Problem [address] [place] [phone] Allergies Active Allergy Reactions Severity Noted Date Comments Metoclopramide Hcl Anxiety 03/15/2018 documented as of this encounter (statuses as of 11/18/2019) Medications Medication Sig Dispensed Refills Start Date [...] to 22 weeks tabs at bedtime. gestation ciprofloxacin HCl 500 Take 1 tablet by 20 tablet 0 04/19/2019 Active mg tabletIndications: mouth 2 (two) Colitis times daily. metroNIDAZOLE 500 mg Take 1 tablet by 14 tablet 0 04/19/2019 Active tabletIndications: mouth 2 (two) Colitis times daily. ondansetron 4 mg Take 1 tablet by 20 tablet 0 04/19/2019 Active disintegrating mouth every 8 tabletIndications: (eight) hours as Colitis needed for Nausea and Vomiting (N/V). documented as of this encounter (statuses as of 11/18/2019) Active Problems Problem Noted Date Glucose tolerance test abnormal 06/18/2018 12 weeks gestation of 03/15/2018 Rubella non-immune status, antepartum 03/11/2018 Dyspepsia 03/04/2018 Obesity in 02/27/2018 UTI (urinary tract infection) during 018 Overview: MASHA at next visit -neg Supervision of high risk in third trimester 02/11/2018 Multiparity 02/11/2018 Marijuana use 02/11/2018 Overview: Reports due to nausea Ovarian cyst 02/11/2018 Overview: Per outside usg see external provided re cords Atypical squamous cells of undetermined significance ( ASCUS) on 10/20/2017 Papanicolaou smear of cervix Overview: Repeat pap in 12 months History of depression 10/13/2017 History of anxiety 09/05/2015 Nausea and vomiting during prior to 22 weeks gestation 08/22/2015 documented as of this encounter (statuses as of 11/18/2019) Resolved Problems Problem Noted Date Resolved Date Hyperemesis 03/07/2018 03/10/2018 Dehydration 02/27/2018 03/08/2018 11 weeks gestation of 02/27/2018 03/10/20 Well woman exam 10/13/2017 02/11/2018 Contraceptive management 10/13/2017 02/11/2018 Nexplanon removal 10/13/2017 02/27/2018 Overview: Per patient reports was only for 2 years History of depression 09/05/2015 10/13/2017 UTI in , antepartum 08/11/2015 10/13/2017 Overview: Still current uti as of 16 Supervision of high risk , antepartum 08/09/2015 10/13/2017 BV (bacterial vaginosis) 08/09/2015 10/13/2017 documented as of this encounter (statuses as of 11/18/2019) Immunizations Name Administration Dates Next Due Influenza Virus Vaccine Quad .5 mL IM 6+ MO 06/30/2018, 03/02 Influenza Virus Vaccine Quad IM 3+ YRS 08/08/2015 TDAP 06/30/2018 TDAP (ADACEL) VACCINE 12/14/2015 documented as of this encounter Social History [...] Treatment Date Type Specialty Care Team Description 11/23/2019 Office Visit [facility], [facility] Room 11/23/2019 Initial Visit [facility] Med [place], [facility] [address] [place] [address] [phone] Health Maintenance Due Date Last Done Comments HPV VACCINES (1 - Female 2005 2-dose series) Depression Screening 2006 INFLUENZA VACCINE (Season 02/01/2020 06/30/2018, Ended) 03/19/2018, 08/08/2015 PAP SMEAR 10/13/2020 10/13/2017 DTaP,Tdap,and Td Vaccines (3 06/30/2028 06/30/2018, - Td) 12/14/2015 PNEUMOCOCCAL 0-64 YEARS Aged Out No longe r eligible based COMBINED SERIES on patient's age to complete this to pic documented as of this encounter Results Not on filedocumented in this encounter Advance Directives Name Relationship Healthcare Agent Communication Relationship Bryant Styles Spouse Primary healthcare agent Kathleen Montreo Mother [place] [phone] agent (Mobile)
--- OUTSIDE RECORDS SUMMARY | 2019-11-18 17:36 | XMS REPORT | Continuity of Care Document ---
:1995 Author Organization [facility] t Address [address] [place] [address] Care Team Providers Name Role Phone Yovany WISE Attending Clinician Unavailable Maria G Torre Attending Clinician Problems This patient has no known problems. Allergies, Adverse Reactions, Alerts This patient has no known allergies or adverse reactions. Medications This patient has no known medications. Procedures This patient has no known procedures. Encounters Start End Encounter Admission Attending Care Care Encounter Source Date/Time Date/Time Type Type Clinicians Facility Department ID 2019-11-18 2019-11-18 Nurse MANRIE Pedroza [id number] 00:00:00 00:00:00 Triage Heather LLAMAS [id number] [facility] [id number] 2019-01-04 2019-01-04 Telephone TUCKER Arriaga [id number] 00:00:00 00:00:00 Hollie Cummins LABORATORY TESTER [id number] [facility] [id number] MATERNAL [id number] & CHILD [address] [place] [address] Results This patient has no known results.
--- NOTE | 2019-11-18 20:46 | EDPHYS ---
Physician Documentation [facility] Name: Apolonia Montero Age: 24 yrs Sex: Female : 1995 Arrival Date: 11/18/2019 Time: 17:36 Bed 15 Private MD: ED Physician Cleveland Segundo HPI: 11/17 20:39 This 24 yrs old Female presents to ER via Ambulatory with complaints of tw4 Vaginal Itching, 8 wks Preg. 20:39 The patient presents with a possible exposure to a sexually transmitted disease, tw4 herpes, and has been treated with nothing to date. Onset: The symptoms/episode began/occurred yesterday. Modifying factors: The symptoms are alleviated by nothing, the symptoms are aggravated by nothing. Associated signs and symptoms: The patient has no apparent associated signs or symptoms. Severity of symptoms: At their worst the symptoms were moderate, in the emergency department the symptoms are unchanged. The patient has not experienced similar symptoms in the past. Historical: - Allergies: 18:01 No Known Allergies; ss - PMHx: 18:01 Anxiety; ss - Immunization history:: Adult Immunizations unknown. - Social history:: Smoking status: Patient/guardian denies using tobacco, Stopped _ months ago 1. ROS: 20:39 Positive for vaginal itching. tw4 20:39 Constitutional: Negative for fever, chills, and weight loss, Eyes: Negative for injury, pain, redness, and discharge, Cardiovascular: Negative for chest pain, palpitations, and edema, Respiratory: Negative for shortness of breath, cough, wheezing, and pleuritic chest pain, Abdomen/GI: Negative for abdominal pain, nausea, vomiting, diarrhea, and constipation, MS/Extremity: Negative for injury and deformity, Skin: Negative for injury, rash, and discoloration. Exam: 20:39 Constitutional: This is a well developed, well nourished patient who is awake, alert, tw4 and in no acute distress. Head/Face: Normocephalic, atraumatic. Chest/axilla: Normal chest wall appearance and motion. Nontender with no deformity. No lesions are appreciated. Cardiovascular: Regular rate and rhythm with a normal S1 and S2. No gallops, murmurs, or rubs. Normal PMI, no JVD. No pulse deficits. Respiratory: Lungs have equal breath sounds bilaterally, clear to auscultation and percussion. No rales, rhonchi or wheezes noted. No increased work of breathing, no retractions or nasal flaring. Abdomen/GI: Soft, non-tender, with normal bowel sounds. No distension or tympany. No guarding or rebound. No evidence of tenderness throughout. 20:39 : Pelvic Exam: External exam: herpes lesions noted. Vital Signs: 17:57 BP 122 / 69; Pulse 87; Resp 16; Temp 97.8; Pulse Ox 98% on R/A; Weight 90.72 kg; Height ss 5 ft. 5 in. (165.10 cm); 17:57 Body Mass Index 33.28 (90.72 kg, 165.10 cm) ss MDM: 19:43 Patient medically screened. tw4 20:39 Data reviewed: vital signs, nurses notes. Data interpreted: Pulse oximetry: tw4 Interpretation: normal. Counseling: I had a detailed discussion with the patient and/or guardian regarding: the historical points, exam findings, and any diagnostic results supporting the discharge/admit diagnosis. Special discussion: I discussed with the patient/guardian in detail that at this point there is no indication for admission to the hospital. It is understood, however, that if the symptoms persist or worsen the patient needs to return immediately for re-evaluation. ED course: PT has lesions consistent with HSV. Instructed that patient should followup with PCP and kennel hand. Administered Medications: No medications were administered Disposition: 11/18/19 20:46 Discharged to Home. Impression: Herpesviral vesicular dermatitis. - Condition is Stable. - Discharge Instructions: Genital Herpes. - Prescriptions for Acyclovir 200 mg Oral Capsule - take 1 capsule by ORAL route 5 times per day; 50 capsule. - Medication Reconciliation Form, Thank You Letter, Antibiotic Education, Prescription Opioid Use form. - Follow up: Private Physician; When: Upon discharge from the Emergency Department; Reason: Recheck today's complaints, Continuance of care, Re-evaluation by your physician. - Problem is new. - Symptoms have improved. Signatures: Tiarra Malik RN RN Cleveland Segundo MD MD tw4 Yamila Sexton RN RN ls4 Corrections: (The following items were deleted from the chart) 21:06 20:46 11/18/2019 20:46 Discharged to Home. Impression: Herpesviral vesicular ls4 dermatitis. Condition is Stable. Forms are Medication Reconciliation Form, Thank You Letter, Antibiotic Education, Prescription Opioid Use. Follow up: Private Physician; When: Upon discharge from the Emergency Department; Reason: Recheck today's complaints, Continuance of care, Re-evaluation by your physician. Problem is new. Symptoms have improved. tw4
--- NOTE | 2019-11-18 20:46 | ER ---
Nurse's Notes [facility] Name: Apolonia Montero Age: 24 yrs Sex: Female : 1995 Arrival Date: 11/18/2019 Time: 17:36 Bed 15 Private MD: Diagnosis: Herpesviral vesicular dermatitis Presentation: 11/17 17:57 Chief complaint: Patient states: "I'm having a herpes outbreak on my vagina. It started ss 3-4 days ago and I'm about 8 weeks .". Coronavirus screen: Proceed with normal triage. Patient denies a cough. Patient denies shortness of breath or difficulty breathing. Patient denies measured and/or subjective temperature greater than 100.4F prior to today's visit. Patient denies travel on a cruise ship or to a country the [facility] currently lists as an affected area. Patient denies contact with known and/or suspected case of COVID-19. Ebola Screen: Patient denies exposure to infectious person. Patient denies travel to an Ebola-affected area in the 21 days before illness onset. Initial Sepsis Screen: Does the patient meet any 2 criteria? No. Patient's initial sepsis screen is negative. Does the patient have a suspected source of infection? No. Patient's initial sepsis screen is negative. Risk Assessment: Do you want to hurt yourself or someone else? Patient reports no desire to harm self or others. Onset of symptoms was November 14, 2019. 17:57 Method Of Arrival: Ambulatory 17:57 Acuity: APRYL 4 ss Historical: - Allergies: 18:01 No Known Allergies; ss - PMHx: 18:01 Anxiety; ss - Immunization history:: Adult Immunizations unknown. - Social history:: Smoking status: Patient/guardian denies using tobacco, Stopped _ months ago 1. Vital Signs: 17:57 BP 122 / 69; Pulse 87; Resp 16; Temp 97.8; Pulse Ox 98% on R/A; Weight 90.72 kg; Height ss 5 ft. 5 in. (165.10 cm); 17:57 Body Mass Index 33.28 (90.72 kg, 165.10 cm) ED Course: 17:36 Patient arrived in ED. ag5 18:01 Triage completed. ss 18:01 Arm band placed on right wrist. ss 19:43 Cleveland Segundo MD is Attending Physician. tw4 19:49 Yamila Sexton, RN is Primary Nurse. ls4 Administered Medications: No medications were administered Outcome: 20:46 Discharge ordered by . tw4 21:06 Patient left the ED. ls4 Signatures: Tiarra Malik, RN RN Cleveland Segundo MD MD 4 Yamila Sexton, RN RN 4 [facility] [place] [address]
[2019-11-18 21:30] VITALS: BP 122/69; TEMP 97.8; O2SAT 98
== END 2019-11-18 21:06 | disposition home or self-care (01) ==
LOC: ER 17:33
DX: O98.311 Other infections with a predominantly sexual mode of transmission complicating pregnancy, first trimester (principal); Z3A.08 8 weeks gestation of pregnancy
CPT/HCPCS: 99281

== ENCOUNTER 2019-11-20 00:54 | Emergency (ER) | payer OTHER, SELFPAY ==
[2019-11-20] MEDS ORDERED: NA CHLORIDE 0.9% 1,000 ML ONE (01:40)
[2019-11-20] MEDS ORDERED: ONDANSETRON 4 MG/2 ML VIAL ONE ×2 (01:40→02:59)
[2019-11-20 01:51] LABS: Urine Blood NEGATIVE (NEG); Urine Glucose NEGATIVE (NEG); Urine Protein 2+ (NEG); Urine Specific Gravity 1.025 (1.005-1.030)
[2019-11-20 02:09] LABS: ALT/SGPT 14 U/L (12-78); AST/SGOT 9 U/L (15-37); Albumin 4.4 g/dL (3.4-5.0); Alkaline Phosphatase 102 U/L (45-117); BUN Blood Urea Nitrogen 12 mg/dL (7-18); Bicarbonate 23 mmol/L (21-32); Bilirubin Direct 0.1 mg/dL (0-0.2); Bilirubin Total 0.4 mg/dL (0.2-1.0); Glucose Level 87 mg/dL (74-106); Lipase 150 U/L (73-393); Potassium 3.6 mmol/L (3.5-5.1); Protein, Total 8.9 g/dL (6.4-8.2); Sodium Level 140 mmol/L (136-145)
[2019-11-20 02:23] LABS: Urine Bacteria >50 /HPF (<20); Urine Culture Reflex Order REFLEXED; Urine Mucus 2+ /HPF (NONE SEEN)
[2019-11-20 02:47] LABS: Absolute Lymphocytes (CBC) 1.5 K/uL (0.7-4.9); Basophils % 0.5 % (0-1.3); Hematocrit 37.9 % (36.0-45.0); Lymphocytes % 12.4 % (15.3-44.8); MPV 11.3 fL (7.6-11.3); RBC Red Blood Cell Count 4.43 M/uL (3.86-4.86)
[2019-11-20] MEDS ORDERED: PROMETHAZINE INJ 25 MG/ML AMP ONE (03:47)
--- NOTE | 2019-11-20 04:38 | EDPHYS ---
Physician Documentation [facility] Name: Apolonia Montero Age: 24 yrs Sex: Female : 1995 Arrival Date: 11/20/2019 Time: 00:59 Bed 5 Private MD: ED Physician Cleveland Segundo HPI: 11/19 01:54 This 24 yrs old Female presents to ER via Ambulatory with complaints of tw4 Nausea/Vomiting, Decreased Appetite, About 8wks preg. 01:54 The patient presents to the emergency department with nausea, vomiting. Onset: The tw4 symptoms/episode began/occurred 1 week(s) ago. Possible causes: unknown. The symptoms are aggravated by nothing. The symptoms are alleviated by nothing. Severity of symptoms: At their worst the symptoms were moderate in the emergency department the symptoms are unchanged. The patient has not experienced similar symptoms in the past. 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 - Social history:: Smoking status: Patient denies any tobacco usage or history of. ROS: 01:54 Constitutional: Negative for fever, chills, and weight loss, Eyes: Negative for injury, tw4 pain, redness, and discharge, Cardiovascular: Negative for chest pain, palpitations, and edema, Respiratory: Negative for shortness of breath, cough, wheezing, and pleuritic chest pain, Back: Negative for injury and pain, MS/Extremity: Negative for injury and deformity, Skin: Negative for injury, rash, and discoloration, Neuro: Negative for headache, weakness, numbness, tingling, and seizure. 01:54 Abdomen/GI: Positive for nausea and vomiting, nausea, vomiting, and diarrhea, nausea, vomiting. Exam: 01:54 Constitutional: This is a well developed, well nourished patient who is awake, alert, tw4 and in no acute distress. Head/Face: Normocephalic, atraumatic. Chest/axilla: Normal chest wall appearance and motion. Nontender with no deformity. No lesions are appreciated. Cardiovascular: Regular rate and rhythm with a normal S1 and S2. No gallops, murmurs, or rubs. Normal PMI, no JVD. No pulse deficits. Respiratory: Lungs have equal breath sounds bilaterally, clear to auscultation and percussion. No rales, rhonchi or wheezes noted. No increased work of breathing, no retractions or nasal flaring. Skin: Warm, dry with normal turgor. Normal color with no rashes, no lesions, and no evidence of cellulitis. MS/ Extremity: Pulses equal, no cyanosis. Neurovascular intact. Full, normal range of motion. Neuro: Awake and alert, GCS 15, oriented to person, place, time, and situation. Cranial nerves II-XII grossly intact. Motor strength 5/5 in all extremities. Sensory grossly intact. Cerebellar exam normal. Normal gait. 01:54 Abdomen/GI: Inspection: abdomen appears normal, Bowel sounds: normal, Palpation: abdomen is soft and non-tender. Vital Signs: 01:10 BP 125 / 75; Pulse 78; Resp 19; Temp 97.7; Pulse Ox 100% ; Weight 90.72 kg; Height 5 rr5 ft. 5 in. (165.10 cm); Pain 0/10; 02:50 BP 121 / 62; Pulse 75; Resp 17; Pulse Ox 99% ; rr5 03:51 BP 114 / 75; Pulse 70; Resp 16; Pulse Ox 99% ; rr5 04:45 BP 126 / 89; Pulse 79; Resp 19; Temp 97.9; Pulse Ox 99% ; rr5 01:10 Body Mass Index 33.28 (90.72 kg, 165.10 cm) rr5 MDM: 01:19 Patient medically screened. tw4 04:35 Differential diagnosis: Nonspecific abd pain, gastritis. Data reviewed: vital signs, tw4 EMS record. Data reviewed: lab test result(s), CBC, electrolytes. Data interpreted: Pulse oximetry: Interpretation: normal. Counseling: I had a detailed discussion with the patient and/or guardian regarding: the historical points, exam findings, and any diagnostic results supporting the discharge/admit diagnosis. Medication response: Phenergan relieved the patient's nausea, Zofran partially relieved the patient's nausea. Response to treatment: and as a result, I will discharge patient. Special discussion: I discussed with the patient/guardian in detail that at this point there is no indication for admission to the hospital. It is understood, however, that if the symptoms persist or worsen the patient needs to return immediately for re-evaluation. 11/19 01:18 Order name: Basic Metabolic Panel [facility] 11/19 01:18 Order name: CBC with Diff [facility] 11/19 01:18 Order name: Hepatic Function; Complete Time: 02:40 [facility] 11/19 02:40 Interpretation: Normal except: AST 9; TP 8.9; GLOB 4.5; A/G 1.0. [facility] 11/19 01:18 Order name: Lipase; Complete Time: 02:40 [facility] 11/19 02:42 Interpretation: Within normal limits: LIP 150. [facility] 11/19 01:18 Order name: Urine Microscopic Only; Complete Time: 02:40 [facility] 11/19 02:41 Interpretation: Normal except: UWBC 10-20; URBC 5-10; UBACT >50; SQEPI 10-20. [facility] 11/19 01:19 Order name: Basic Metabolic Panel; Complete Time: 02:40 EDPR 11/19 02:42 Interpretation: Within normal limits. [facility] 11/19 01:19 Order name: CBC with Automated Diff [facility] 11/19 01:30 Order name: Urine --Ancillary (enter results); Complete Time: 02:43 tt3 11/19 02:43 Interpretation: Abnormal: URINE PREG POS. [facility] 11/19 01:30 Order name: Urine Dipstick--Ancillary (enter results); Complete Time: 02:40 tt3 11/19 02:24 Order name: Urine Culture [facility] 11/19 01:18 Order name: IV Saline Lock; Complete Time: 01:42 11/19 01:18 Order name: Labs collected and sent; Complete Time: 01:42 11/19 01:18 Order name: Urine Dipstick-Ancillary (obtain specimen); Complete Time: 01:42 11/19 02:40 Order name: PO challenge; Complete Time: 04:44 Administered Medications: 01:43 Drug: NS 0.9% 1000 ml Route: IV; Rate: 1 bolus; Site: left forearm; rr5 03:00 Follow up: Response: No adverse reaction; IV Status: Completed infusion; IV Intake: rr5 1000ml 01:43 Drug: Zofran (Ondansetron) 4 mg Route: IVP; Site: left forearm; rr5 02:30 Follow up: Response: No adverse reaction; No change in condition rr5 02:54 Drug: Zofran (Ondansetron) 4 mg Route: IVP; Site: left forearm; rr5 03:30 Follow up: Response: No adverse reaction; No change in condition rr5 03:50 Drug: Phenergan 12.5 mg Route: IVP; Site: left forearm; rr5 04:44 Follow up: Response: No adverse reaction; Marked relief of symptoms rr5 Disposition: 11/20/19 04:37 Discharged to Home. Impression: Nausea with vomiting, unspecified, Hyperemesis gravidum. - Condition is Stable. - Discharge Instructions: Hyperemesis Gravidarum, Nausea and Vomiting, Adult, Nausea, Adult. - Prescriptions for Zofran 4 mg Oral Tablet - take 1 tablet by ORAL route every 12 hours As needed; 20 tablet. promethazine 25 mg Oral Tablet - take 1 tablet by ORAL route every 6 hours As needed; 20 tablet. - Medication Reconciliation Form, Thank You Letter, Antibiotic Education, Prescription Opioid Use form. - Follow up: Private Physician; When: Upon discharge from the Emergency Department; Reason: If symptoms return, Recheck today's complaints, Continuance of care, Re-evaluation by your physician. - Problem is new. - Symptoms have improved. Signatures: Dispatcher [employer] EDMS Yayo Quesada, RN RN Cleveland Cottrell MD MD tw4 Arnel Stephen RN RN rr5 Corrections: (The following items were deleted from the chart) 02:43 02:43 Within normal limits: URINE PREG POS. tw4 tw4 04:46 04:37 11/20/2019 04:37 Discharged to Home. Impression: Nausea with vomiting, rr5 unspecified; Hyperemesis gravidum. Condition is Stable. Forms are Medication Reconciliation Form, Thank You Letter, Antibiotic Education, Prescription Opioid Use. Follow up: Private Physician; When: Upon discharge from the Emergency Department; Reason: If symptoms return, Recheck today's complaints, Continuance of care, Re-evaluation by your physician. Problem is new. Symptoms have improved. tw4
--- NOTE | 2019-11-20 04:38 | ER ---
Nurse's Notes [facility] Name: Apolonia Montero Age: 24 yrs Sex: Female : 1995 Arrival Date: 11/20/2019 Time: 00:59 Bed 5 Private MD: Diagnosis: Nausea with vomiting, unspecified;Hyperemesis gravidum Presentation: 11/19 01:06 Acuity: ARPYL 3 sg 01:10 Chief complaint: Patient states: I feel feel really nauseous, vomiting and decreased rr5 appetite started a week ago. denies vaginal bleeding. denies pain. 01:10 Coronavirus screen: Proceed with normal triage. Ebola Screen: Patient negative for rr5 fever greater than or equal to 101.5 degrees Fahrenheit, and additional compatible Ebola Virus Disease symptoms Patient denies exposure to infectious person. Patient denies travel to an Ebola-affected area in the 21 days before illness onset. Initial Sepsis Screen: Does the patient meet any 2 criteria? No. Patient's initial sepsis screen is negative. Does the patient have a suspected source of infection? No. Patient's initial sepsis screen is negative. Risk Assessment: Do you want to hurt yourself or someone else? Patient reports no desire to harm self or others. Onset of symptoms was November 13, 2019. 01:10 Method Of Arrival: Ambulatory rr5 RABBLER: 01:40 LMP 09/2019 rr5 Historical: - Allergies: 01:07 No Known Allergies; sg - PMHx: 01:07 Anxiety; sg - PSHx: 01:07 None; sg - Immunization history:: Adult Immunizations up to date. - Social history:: Smoking status: Patient denies any tobacco usage or history of. Screenin:49 Abuse screen: Denies threats or abuse. Denies injuries from another. Nutritional rr5 screening: No deficits noted. Tuberculosis screening: No symptoms or risk factors identified. Fall Risk IV access (20 points). Total Lozada Fall Scale indicates No Risk (0-24 pts). Assessment: 01:25 General: Appears in no apparent distress. uncomfortable, Behavior is calm, cooperative, rr5 appropriate for age. Pain: Denies pain. Neuro: Level of Consciousness is awake, alert, obeys commands, Oriented to person, place, time, situation. Cardiovascular: Capillary refill is > 3 seconds Patient's skin is warm and dry. Respiratory: Airway is patent Respiratory effort is even, unlabored, Respiratory pattern is regular, symmetrical. GI: Abdomen is round non-distended, Reports intolerance of fluids, intolerance of food, nausea, vomiting, Patient currently denies abdominal pain, diarrhea. : No signs and/or symptoms were reported regarding the genitourinary system. EENT: No signs and/or symptoms were reported regarding the EENT system. Derm: Skin is intact, is healthy with good turgor, Skin temperature is warm. Musculoskeletal: Circulation, motion, and sensation intact. Capillary refill < 3 seconds. 02:10 Reassessment: Patient appears in no apparent distress at this time. Patient is alert, rr5 oriented x 3, equal unlabored respirations, skin warm/dry/pink. Patient states feeling better. Patient states symptoms have improved. 02:50 GI: Pt is actively vomiting clear fluid, small in amount ED provider aware with order rr5 made and carried out. 03:35 Reassessment: Patient appears in no apparent distress at this time. patient complaints rr5 she still gagging and nauseated. ED provider with order made and carried out. 04:03 Reassessment: Patient appears in no apparent distress at this time. Patient is alert, rr5 oriented x 3, equal unlabored respirations, skin warm/dry/pink. Patient states feeling better. Patient states symptoms have improved. 04:45 Reassessment: Patient appears in no apparent distress at this time. Patient is alert, rr5 oriented x 3, equal unlabored respirations, skin warm/dry/pink. discharge instruction given and explained without complaints made. Patient states feeling better. Patient states symptoms have improved. Vital Signs: 01:10 BP 125 / 75; Pulse 78; Resp 19; Temp 97.7; Pulse Ox 100% ; Weight 90.72 kg; Height 5 rr5 ft. 5 in. (165.10 cm); Pain 0/10; 02:50 BP 121 / 62; Pulse 75; Resp 17; Pulse Ox 99% ; rr5 03:51 BP 114 / 75; Pulse 70; Resp 16; Pulse Ox 99% ; rr5 04:45 BP 126 / 89; Pulse 79; Resp 19; Temp 97.9; Pulse Ox 99% ; rr5 01:10 Body Mass Index 33.28 (90.72 kg, 165.10 cm) rr5 ED Course: 00:59 Patient arrived in ED. es 01:06 Triage completed. sg 01:06 Arm band placed on. sg 01:10 Patient has correct armband on for positive identification. Bed in low position. Call rr5 light in reach. Side rails up X2. Pulse ox on. NIBP on. 01:10 No provider procedures requiring assistance completed. Urine collected: clean catch rr5 specimen, clear. 01:19 Cleveland Segundo MD is Attending Physician. tw4 01:31 Arnel Stephen, RN is Primary Nurse. rr5 01:35 Inserted saline lock: 20 gauge in left forearm, using aseptic technique. Blood rr5 collected. 04:46 IV discontinued, intact, bleeding controlled, No redness/swelling at site. Pressure rr5 dressing applied. Administered Medications: 01:43 Drug: NS 0.9% 1000 ml Route: IV; Rate: 1 bolus; Site: left forearm; rr5 03:00 Follow up: Response: No adverse reaction; IV Status: Completed infusion; IV Intake: rr5 1000ml 01:43 Drug: Zofran (Ondansetron) 4 mg Route: IVP; Site: left forearm; rr5 02:30 Follow up: Response: No adverse reaction; No change in condition rr5 02:54 Drug: Zofran (Ondansetron) 4 mg Route: IVP; Site: left forearm; rr5 03:30 Follow up: Response: No adverse reaction; No change in condition rr5 03:50 Drug: Phenergan 12.5 mg Route: IVP; Site: left forearm; rr5 04:44 Follow up: Response: No adverse reaction; Marked relief of symptoms rr5 Intake: 03:00 IV: 1000ml; Total: 1000ml. rr5 Outcome: 04:37 Discharge ordered by . tw4 04:46 Discharged to home ambulatory. rr5 04:46 Condition: stable 04:46 Discharge instructions given to patient, Instructed on discharge instructions, follow up and referral plans. medication usage, Demonstrated understanding of instructions, follow-up care, medications, Prescriptions given X 2. 04:46 Patient left the ED. rr5 Signatures: Yayo Quesada RN RN Belkis Doss Terrence, MD MD tw4 Arnel Stephen, RN RN rr5
[2019-11-20 05:12] VITALS: O2SAT 99
[2019-11-20 05:15] VITALS: BP 126/89; TEMP 97.9
--- OUTSIDE RECORDS SUMMARY | 2019-11-20 13:41 | XMS REPORT | Continuity of Care Document ---
:1995 Author Organization [facility] t Address [address] [place] [address] Care Team Providers Name Role Phone Yovany IWSE Attending Clinician Unavailable Maria G Torre Attending Clinician Problems This patient has no known problems. Allergies, Adverse Reactions, Alerts This patient has no known allergies or adverse reactions. Medications This patient has no known medications. Procedures This patient has no known procedures. Encounters Start End Encounter Admission Attending Care Care Encounter Source Date/Time Date/Time Type Type Clinicians Facility Department ID 2019-11-18 2019-11-18 Nurse MARNIE Pedroza [id number] 00:00:00 00:00:00 Triage Heather VALLEJOY [id number] [facility] [id number] 2019-01-04 2019-01-04 Telephone TUCKER Arriaga [id number] 00:00:00 00:00:00 Hollie Cummins PARTS SALESPERSON [id number] [facility] [id number] MATERNAL [id number] & CHILD [address] [place] [address] Results This patient has no known results.
== END 2019-11-20 04:46 | disposition home or self-care (01) ==
LOC: ER 00:54
DX: O21.0 Mild hyperemesis gravidarum (principal); Z3A.08 8 weeks gestation of pregnancy
CPT/HCPCS: 96361; 87088; 85025; 87086; 80048; 36415; 81025; 80076; 87077; 87186; 83690; 96375; 96374; 99284; J2550; J7030; J2405 ×2; 81003; 81015

== ENCOUNTER 2020-01-21 03:06 | Emergency (ER) | payer OTHER ==
--- OUTSIDE RECORDS SUMMARY | 2020-01-21 03:08 | XMS REPORT | Continuity of Care Document ---
:1995 Author Organization [facility] t Address [address] [place] [address] Care Team Providers Name Role Phone Maria G Torre Attending Clinician Problems This patient has no known problems. Allergies, Adverse Reactions, Alerts This patient has no known allergies or adverse reactions. Medications This patient has no known medications. Procedures This patient has no known procedures. Encounters Start End Encounter Admission Attending Care Care Encounter Source Date/Time Date/Time Type Type Clinicians Facility Department ID 2020-01-20 2020-01-20 Routine TUCKER Arriaga [id number] 14:42:20 15:36:31 Ravindranda R ASSOCIATE TEACHER [id number] Visit REGIONAL [id number] MATERNAL [id number] & CHILD [address] [facility] 2019-12-08 2019-12-08 Telephone TUCKER Arriaga [id number] 00:00:00 00:00:00 Roshunda R ASSOCIATE TEACHER [id number] REG[facility]AL [id number] MATERNAL [id number] & CHILD [address] [facility] 2019-12-08 2019-12-08 Abstract TUCKER Arriaga [id number] 00:00:00 00:00:00 Roshunda R ASSOCIATE TEACHER [id number] REG[facility]AL [id number] MATERNAL [id number] & CHILD [address] [place] [address] Results This patient has no known results.
--- OUTSIDE RECORDS SUMMARY | 2020-01-21 03:09 | XMS REPORT | Summary of Care ---
:1995 Author Organization [facility] Address [address] [place] [id number] Care Team Providers Name Role Phone Pcp, Does Not Have A Primary Care Provider Reason for Referral (Routine) Status Reason Specialty Diagnoses / Referred By Referred To Procedures Contact Contact New Request Maternal Diagnoses Supervision of high risk , antepartum Hollie Arriaga Medicine Procedures CONSULT MATERNAL MEDICINE ULTRASOUND Preferred Location: [facility] [address] [place] [address] Reason for Visit Reason Comments Initial Visit Encounter Details Date Type Department Care Team Description 12/01/2019 Initial [facility]- Hollie Arriaga upervision of high risk , antepartum (Primary Dx); Visit [facility] Multiparity; [address] [facility] History o f herpes simplex type 2 infection; [address] Nausea and vomiting during [place] or to 22 weeks gestation; [place], [place] History of depr ession; [id number] Tobacco abuse; [phone] Class 1 obesity with body mass index (BM I) of 31.0 to 31.9 in adult, unspecified obesity type, unspecified whether serious comorbidity present; [phone] BMI 31.0-31.9,a dult (Fax) Allergies Active Allergy Reactions Severity Noted Date Comments Metoclopramide Hcl Anxiety 03/15/2018 documented as of this encounter (statuses as of 12/01/2019) Medications Medication Sig Dispensed Refills Start End Status Date Date proMETHazine 25 mg Take 1 tablet 30 tablet 0 02/12/20 Active tabletIndications: by mouth every 18 Nausea and vomiting 6 (six) hours during as needed for prior to 22 weeks Nausea and gestation Vomiting (N/V). ondansetron 4 mg Take 1 tablet 20 tablet 0 04/19/20 Active disintegrating by mouth every 19 tabletIndications: 8 (eight) hours Colitis as needed for Nausea and Vomiting (N/V). vit Take 1 Packet 30 Each 6 12/01/19 Act prince [id number] by mouth daily. 20 (SELECT-OB + DHA) 29 mg iron-1 mg -250 mg combo packIndications: Supervision of high risk , antepartum proMETHazine 25 mg Insert 1 4 Suppository 1 02/29/20 Discontinued suppository Suppository 18 020 into rectum every 4 (four) hours as needed for Nausea and Vomiting (N/V). famotidine 20 mg Take 1 tablet 60 tablet 3 03/04/20 Discontinued tablet by mouth 2 18 020 (two) times daily. proCHLORperazine Insert 1 12 Suppository 0 03/15/20 Discontinued (COMPAZINE) 25 mg Suppository 18 020 suppository into rectum every 12 (twelve) hours as needed for Nausea and Vomiting (N/V). proCHLORperazine 10 Take 1 tablet 30 tablet 3 03/16/20 Discontinued mg tablet by mouth every 18 020 6 (six) hours as needed for Nausea and Vomiting (N/V). doxylamine-pyridoxin Take 4 tablets 120 tablet 1 03/16/2006/03 Discontinued e, vit B6, by mouth at 18 020 (DICLEGIS) 10-10 mg bedtime. Take 1 per tab in the tabletIndications: morning, 1 tab Nausea and vomiting with lunch and during 2 tabs at prior to 22 weeks bedtime. gestation ciprofloxacin HCl Take 1 tablet 20 tablet 0 04/19/20 Discontinued 500 mg by mouth 2 020 tabletIndications: (two) times Colitis daily. metroNIDAZOLE 500 mg Take 1 tablet 14 tablet 0 04/19/2011/30 Discontinued tabletIndications: by mouth 2 19 020 Colitis (two) times daily. documented as of this encounter (statuses as of 12/01/2019) Active Problems Problem Noted Date History of herpes simplex type 2 infection 12/01/2019 Tobacco abuse 12/01/2019 BMI 31.0-31.9,adult 12/01/2019 Glucose tolerance test abnormal 06/18/2018 12 weeks gestation of 03/15/2018 Rubella non-immune status, antepartum 03/11/2018 Dyspepsia 03/04/2018 Class 1 obesity with body mass index (BMI) of 31.0 to 31.9 in adult, 02/27/2018 unspecified obesity type, unspecified whether serious comorbidity present UTI (urinary tract infection) during 018 Overview: [...] during prior to 22 weeks gestation 08/22/2015 Supervision of high risk , antepartum 016 Estimated Date of Delivery Comments Yes 06/26/2020 Based on last menstr ual period of 09/20/2019 (Approximate) documented as of this encounter (statuses as of 12/01/2019) Resolved Problems Problem Noted Date Resolved Date Hyperemesis 03/07/2018 03/10/2018 Dehydration 02/27/2018 03/08/2018 11 weeks gestation of 02/27/2018 03/10/20 18 Well woman exam 10/13/2017 02/11/2018 Contraceptive management 10/13/2017 02/11/2018 Nexplanon removal 10/13/2017 02/27/2018 Overview: Per patient reports was only for 2 years History of depression 09/05/2015 10/13/2017 UTI in , antepartum 08/11/2015 10/13/2017 Overview: Still current uti as of 5-6-16 BV (bacterial vaginosis) 08/09/2015 10/13/2017 documented as of this encounter (statuses as of 12/01/2019) Immunizations Name Administration Dates Next Due Influenza Virus Vaccine Quad .5 mL IM 6+ MO 06/30/2018, 03/02 Influenza Virus Vaccine Quad IM 3+ YRS 08/08/2015 TDAP 06/30/2018 TDAP (ADACEL) VACCINE 12/14/2015 documented as of this encounter Social History Tobacco Use Types Packs/Day Years Used Date Former Smoker Smokeless Tobacco: Never Used Comments: quit 11/01/2019 was smoking 1 pack per day Alcohol Use Drinks/Week oz/Week Comments No 0 Standard drinks or equivalent 0.0 Estimated Date of Delivery Comments Yes 06/26/2020 Based on last menstr ual period of 09/20/2019 (Approximate) Sex Assigned at Date Recorded Not on file Job Start Date Occupation Industry Not on file Not on file Not on file Travel History Travel Start Travel End No recent travel history available. COVID-19 Exposure Response Date Recorded In the last month, have you been in contact with No / Unsure 12/01/2019 9:52 AM CDT someone who was confirmed or suspected to have Coronavirus / COVID-19? documented as of this encounter Last Filed Vital Signs Vital Sign Reading Time Taken Comments Blood Pressure 113/77 12/01/2019 9:53 AM CDT Pulse 76 12/01/2019 9:53 AM CDT Temperature 36.3 C (97.4 F) 12/01/2019 9:53 AM CDT Respiratory Rate 16 12/01/2019 9:53 AM CDT Oxygen Saturation - - Inhaled Oxygen Concentration - - Weight 86.4 kg (190 lb 8 oz) 12/01/2019 9:53 AM CDT Height 165.1 cm (5' 5") 12/01/2019 9:53 AM CDT Body Mass Index 31.7 12/01/2019 9:53 AM CDT documented in this encounter Patient Instructions Patient InstructionsTyree Rothman RN - 12/01/2019 9:45 AM CDT Patient Education Prevention Guidelines,Women Ages 18 to 39 Screening tests and vaccines are an important part of managing your health. A screening test is doneto find possible disorders or diseases in people who don't have any symptoms. The goal is to find a disease early so lifestyle changes can be made and you can be watched more closely to reduce the riskof disease, or to detect it early enough to treat it most effectively. Screening tests are not considered diagnostic, but are used to determine if more testing is needed. Health counseling is essential, too. Below are guidelines for these, for women ages 18 to 39. Talk with your healthcare provider tomake sure youre up-to-date on what you need. Screening Who needs it How often Alcohol misuse All women in this age group At routine exams Blood pressure All women in this age group Yearly checkup if your blood pressure is normal Normal blood pressure is less than 120/80 mm Hg If your blood pressure reading is higher than normal, follow the advice of your healthcare provider Breast cancer All women in this age group should talk with their healthcare providers about the needfor clinical breast exams (CBE)1 Clinical breast exam every 3 years1 Cervical cancer Women ages 21 and older Women between ages 21 and 29 should have a Pap test every 3 years; women between ages 30 and 65 are advised to have a Pap test plus an HPV test every 5 years Chlamydia Sexually active women ages 25 and younger, and women at increased risk for infection (suchas having multiple sex partners) Every year if you're at risk or have symptoms Depression All women in this age group At routine exams Type 2 diabetes, prediabetes All women with no symptoms who are overweight or obese and have 1 or more other risk factors for diabetes At least every 3 years. Also, testing for diabetes during after the 24th week. Type 2 diabetes, prediabetes All women diagnosed with gestational diabetes Lifelong testing every 3 years Type 2 diabetes All women with prediabetes Every year Gonorrhea Sexually active women at increased risk for infection At routine exams Hepatitis C Anyone at increased risk At routine exams HIV All women should be tested at least once for HIV between the ages of 13 and 64 At routine exams.Those with risk factors for HIV should be tested at least annually. Obesity All women in this age group At routine exams Syphilis Women at increased risk for infection should talk with their healthcare provider At routineexams Tuberculosis Women at increased risk for infection should talk with their healthcare provider Ask your healthcare provider Vision All women in this age group At least 1 complete exam in your 20s, and 2 in your 30s Vaccine2 Who needs it How often Chickenpox (varicella) All women in this age group who have no record of this infection or vaccine 2doses; the second dose should be given 4 to 8 weeks after the first dose Hepatitis A Women at increased risk for infection should talk with their healthcare provider 2 dosesgiven at least 6 months apart Hepatitis B Women at increased risk for infection should talk with their healthcare provider 3 dosesover 6 months; second dose should be given 1 month after the first dose; the third dose should be given at least 2 months after the second dose and at least 4 months after the first dose Haemophilus influenzaeType B (HIB) Women at increased risk for infection should talk with their healthcare provider 1 to 3 doses Human papillomavirus (HPV) All women in this age group up to age 26 3 doses; the second dose should be given 1 to 2 months after the first dose and the third dose given 6 months after the first dose Influenza (flu) All women in this age group Once a year Measles, mumps, rubella (MMR) All women in this age group who have no record of these infections or vaccines 1 or 2 doses Meningococcal Women at increased risk for infection should talk with their healthcare provider 1 or more doses Pneumococcal conjugate vaccine (PCV13)and pneumococcal polysaccharidevaccine(PPSV23) Women at increased risk for infection should talk with their healthcare provider PCV13: 1 dose ages 19 to 65 (protects against 13 types of pneumococcal bacteria) PPSV23: 1 to2 doses through age 64, or 1 dose at 65 or older (protects against 23 types of pneumococcal bacteria) Tetanus/diphtheria/pertussis (Td/Tdap) booster All women in this age group Td every 10 years, or a one-time dose of Tdap instead of a Td booster after age 18, then Td every 10 years Counseling Who needs it How often BRCA gene mutation testing for breast and ovarian cancer susceptibility Women with increased risk for having gene mutation When your risk is known Breast cancer and chemoprevention Women at high risk for breast cancer When your risk is known Diet and exercise Women who are overweight or obese When diagnosed, and then at routine exams Domestic violence Women at the age in which they are able to have children At routine exams Sexually transmitted infection prevention Women who are sexually active At routine exams Skin cancer Prevention of skin cancer in fair-skinned adults At routine exams Use of tobacco and the health effects it can cause All women in this age group Every visit 1 According to the ACS, women ages 20 to 39 years should have a clinical breast exam (CBE) as part of their routine health exam every 3 years. Breast self-exams are an option for women starting in their 20s.But the USPSTF does not recommend CBE. [employer] last reviewed this educational content on 03/02/201719997112-8113 The [employer]. [address] [place] [address]. All rights reserved. This information is not intended as a substitute for professional medical care. Always follow your healthcare professional's instructions. Patient Education Understanding STIs When it comes to sex, nothing is risk-free. Any sexual contact with the penis, vagina, anus, or mouth can spread a sexually transmitted infection (STI). These include chlamydia, gonorrhea, herpes, HIV,and genital warts. STIs are also known as sexually transmitted diseases (STDs). The only sure way toprevent STIs is not having sex (abstinence). But there are ways to make sex safer. Use a latex condom each time you have sex. And choose your partner wisely. Use condoms for safer sex If you have sex, latex condoms provide the best protection against STIs. Latex condoms stop the exchange of body fluids that carry certain STIs. They also limit contact with affected skin. Be aware that a condom doesnt cover all skin. So affected skin that isn't covered can still transfer disease. But youre safer with a condom than without one. Use a condom even if you use other control. control methods such as the pill or IUD help prevent , but they don't protect against STIs. Choose the right condom Condoms made of latex prevent disease best. If youre allergic to latex, use polyurethane condoms instead. Male condoms fit over the penis. Female condoms line the vagina. Before buying a condom, read the label to be sure it prevents disease. Some novelty condoms dont. The right lubricant helps Buy lubricated condoms or use lubricant. This provides greater comfort and reduces the risk for condom breakage. Use only water-based lubricants. Dont use oil, lotion, or petroleum jelly. They can weaken the condom, causing breakage. Also, you may want to choose lubricants without nonoxynol-9. This spermicide may cause irritation. It can raise the risk for certain STIs. Use condoms correctly For condoms to work, they must be used the right way. Keep these tips in mind: Use a new latex condom each time you have sex. Slip the condom on the penis before any contact ismade. When ready to withdraw, hold the rim of the condom as the penis pulls out. This prevents the condom from slipping off. Check the expiration date before using a condom. Dont store condoms in places that can get hot, such as a car or a wallet that is carried in a back pocket. Get to know your partner Safer sex is a process. It involves getting to know your partner and making informed choices. Ask each other how many partners you have had in the past, and how many you have now. Find out if either ofyou has HIV or any other STI. If you decide to have sex, use a condom each time. Dont stop using condoms unless youre sure neither of you has other partners and youve both been tested to confirm you dont have HIV or other STIs. Then stay free of disease by having sex only with each other (monogamy). Keep your cool Dont let alcohol or drugs cloud your judgment. They could lead you to have sex with someone you wouldnt have chosen if you were sober. Or you might forget to use a condom. If you do plan to have sex, keep a latex condom with you. Dont wait until youre in the heat of passion to try to find one. Consider abstinence The only way to be sure you wont get an STI is to abstain from sex. Abstinence is a choice that many people make at some point in their life. Maybe you want to wait until you are sure youre readybefore you have sex. Maybe youd like a break from the responsibilities of sex for a while. Or maybe you just want to know your partner better before taking the next step. Abstinence is a choice you can make now to protect your future. [employer] last reviewed this educational content on 05/02/201819999708-9332 [employer]. [address] [place] [address], [place] [address]. All rights reserved. This information is not intended as a substitute for professional medical care. Always follow your healthcare professional's instructions. Patient Education Understanding HIV and AIDS It's important to know how HIV can get into your body and what happens once its there. Then youll be better prepared to protect yourself or others against this virus. A person with HIV can look and feel perfectly healthy. But that person can give HIV to others as soon as he or she is infected with the virus. Having unsafe or unprotected sex or sharing needles puts you at risk for HIV. Talk with your healthcare provider about ways to protect yourself or a loved one from getting HIV. How HIV infection progresses After HIV enters the body, it attacks the immune system in the stages below. A person with HIV can infect others once the virus gets into the blood. HIV with no symptoms. A person with HIV may have no symptoms for years. The only sign of infection may be a positive blood test for HIV 2 weeks to 3 months or later after HIV enters the body. HIV with symptoms. Some people develop an illness similar to mono (mononucleosis) 2 to 4 weeks after the virus enters the body. This is called acute retroviral syndrome. Symptoms may include swollen lymph glands, chills, fever, night sweats, weakness, weight loss, skin rashes, mouth ulcers, or sore t hroat. Symptoms may be mild or the person can feel quite sick. Even without treatment the symptoms almost always go away in a few days or up to 2 to 3 weeks. Then the person has no symptoms, often for years. But over time the immune system starts to get weaker and symptoms start appearing. People at this stage may have a yeast infection in the mouth (oral thrush), shingles, skin problems, pneumonia, diarrhea that keeps coming back, or weight loss. AIDS. AIDS is the most advanced stage of HIV infection, when the immune system is severely weakened.Certain rare diseases and cancers that normally would not occur, now can occur because the body can no longer fight them well enough. It is often these diseases that cause in people with AIDS. HIV may also directly attack the brain and nervous system. This causes seizures and loss of memory and body movement. It also affects many other parts of the body. This leads to problems such as anemia, low white blood cell count, diarrhea, belly pain, skin problems, and many others. How HIV enters the body HIV is carried in semen, vaginal fluid, blood, and breastmilk. During sex, HIV can enter the body. It gets in through the fragile tissue and linings, sores, or cuts in or around the vagina, penis, anus, and mouth. During drug use, tattooing, or body piercing, the virus can enter the blood through an infected needle. A mother who has HIV can infect her child during , childbirth, and . [employer] reviewed this educational content on 10/31/201819991159-5336 The [employer], [employer]. [address] [place] [address], [place] [address]. All rights reserved. This information is not intended as a substitute for professional medical care. Always follow your healthcare professional's instructions. Patient Education Clinical Breast Exam Many health organizations recommend a yearly clinical breast exam. This exam may be done by a filler sifter helper, family healthcare provider, nurse practitioner, nurse cardiac monitor, or specially trained nurse. Yearly breast exams help tomake surethat breast conditions are found early. Your healthcare providers role A healthcare professional knows the tests and follow-up care needed if a problem is found. Your clinical exam is also a great time to ask questions about breast self-exams. You can find out if yourechecking your breasts in the best way. Or you may want to ask how , breast implants, or breast reduction surgery affect the way you should check your breasts. Diagnostic tests If a clinical exam reveals a breast change, you may have other tests to find out more. These tests may include: Mammography. A low-dose X-ray of your breast tissue. Ultrasound. An imaging test that uses sound waves to create images of your breast. Biopsy. A small amount of breast tissue is removed by needle or by a cut (incision). The tissue is then checked under a microscope. Guidelines for having clinical breast exams The [employer] [employer] recommends that starting at age 29, you should have a clinical breast exam every 1 to 3 years. After age 40, have a clinical breast exam each year. If youre at higher risk for breast cancer, you may need exams more often. Risk factors for breast cancer may include: Being over 50 or postmenopausal Having a family history of breast cancer Having the BRCA1 or BRCA2 gene mutation or certain other gene mutations Having more menstrual periods due to starting menstruation early(before age 12) or having a late menopause (after age 55) Having no pregnancies Having a first after age 30 Being obese Having a history of radiation treatment to your chest area Exposure to LORIN during your mother's Not being active Drinking too much alcohol Having dense breast tissue Taking hormone therapy after menopause Other health organizations have different recommendations. Talk with your healthcare provider about what is best for you. [employer] reviewed this educational content on 12/31/2016 [employer]. [address] [place] [address], [place] [address]. All rights reserved. This information is not intended as a substitute for professional medical care. Always follow your healthcare professional's instructions. Patient Education Breast Health: Breast Self-Awareness What is breast self-awareness? Breast self-awareness is knowing how your breasts normally look and feel. Your breasts change as yougo through different stages of your life. So its important to learn what is normal for your breasts. Knowing about your breasts helps you spot any changes in them right away. Tell your healthcare provider about any changes. Why is breast self-awareness important? Many experts now say that women should focus on breast self-awareness instead of doing a breast self-examination (BSE). These experts include the [employer] [employer] and the [place] [employer]. Some experts even advise not teaching women to do a BSE. Thats because research hasnt shown a clear benefit to doing BSEs. Breast self-awareness is different than a BSE. It isnt about following a certain method and schedule. Its about knowing what's normal for your breasts. That way you can spot even small changes right away. If you see any changes, tell your healthcare provider. Changes to look for Call your healthcare provider if you find any changes in your breasts that worry you. These changes may be: A lump Nipple discharge other than breastmilk, especially if it's bloody Swelling A change in size or shape Skin changes, such as redness, thickening, or dimpling of the skin Swollen lymph nodes in the armpit Nipple problems, such as pain or redness If you find a lump Call your provider if you find lumpiness in one breast. Also call if you feel something different inthe tissue or feel a definite lump. Sometimes lumpiness may be due to menstrual changes. But there may be reason for concern. Your provider may want to see you right away if you have: Nipple discharge that is bloody Skin changes on your breast, such as dimpling or puckering Its okay to be upset if you find a lump. Be sure to call your provider right away. Remember that most breast lumps are benign. This means they are not cancer. [employer] last reviewed this educational content on 12/31/201619991750-9842 [employer]. [address] [place] [address]. All rights reserved. This information is not intended as a substitute for professional medical care. Always follow your healthcare professional's instructions. Patient Education Understanding USDA MyPlate The USDA (U.S. Department of Agriculture) has guidelines to help you make healthy food choices. These are called MyPlate. MyPlate shows the food groups that make up healthy meals using the image of a place setting. Before you eat, think about the healthiest choices for what to put onto your plate or into your cup or bowl. To learn more about building a healthy plate, visit www.choosemyplate.gov. The food groups Fruits. Any fruit or 100% fruit juice counts as part of the Fruit Group. Fruits may be fresh, canned, frozen, or dried, and may be whole, cut-up, or pureed. Make half your plate fruits and vegetables. Vegetables. Any vegetable or 100% vegetable juice counts as a member of the Vegetable Group. Vegetables may be fresh, frozen, canned, or dried. They can be served raw or cooked and may be whole, cut-up, or mashed. Make half your plate fruits and vegetables. Grains. All foods made from grains are part of the Grains Group. These include wheat, rice, oats,cornmeal, and barley such as bread, pasta, oatmeal, cereal, tortillas, and grits. Grains should be no more than a quarter of your plate. At least half of your grains should be whole grains. Protein. This group includes meat, poultry, seafood, beans and peas, eggs, processed soy products(like tofu), nuts (including nut butters), and seeds. Make protein choices no more than a quarter ofyour plate. Meat and poultry choices should be lean or low fat. Dairy. All fluid milk products and foods made from milk that contain calcium, like yogurt and cheese, are part of the Dairy Group. (Foods that have little calcium, such as cream, butter, and cream cheese, are not part of the group.) Most dairy choices should be low-fat or fat-free. Oils. These are fats that are liquid at room temperature. They include canola, corn, olive, soybean, and sunflower oil. Foods that are mainly oil include mayonnaise, certain salad dressings, and soft margarines. You should have only 5 to 7 teaspoons of oils a day. You probably already get this muchfrom the food you eat. [employer] last reviewed this educational content on 12/31/201619997780-7929 [employer]. [address] [place] [address]. All rights reserved. This information is not intended as a substitute for professional medical care. Always follow your healthcare professional's instructions. Patient Education The Range of Pap Test Results When your Pap test is sent to the lab, the lab studies your cell samples and reports any abnormal cell changes. Your healthcare provider can discuss these changes with you. In some cases, an abnormal Pap test is due to an infection. More serious cell changes range from dysplasia to cancer. Talk to your healthcare provider about your Pap test. Normal results Cervical cells, even normal ones, are always changing. As they mature, normal squamous cells move from deeper layers within the cervix. Over time, these cells flatten and cover the surface of the cervix. Within the cervical canal, the cells are different. These glandular cells are taller and not as flat as the cells on the surface of the cervix. When a Pap test sample shows healthy cells of both types, the results are negative. Keep having Pap tests as often as directed. Abnormal results A positive Pap test result means some cells in the sample showed abnormal changes. These results aregrouped by the type of cell change and the location, or extent, of the changes. Depending on the results, you may need further testing. Inflammation. Noncancerous changes are present. They may be due to normal cell repair. Or, they may be caused by an infection, such as HPV or yeast. Further testing may be needed. (Also called reactive cellular changes.) Atypical squamous cells. Test results are unclear. Cells on the surface of the cervix show changes, but their significance is not yet known. Testing for HPV and other sexually transmitted infections(STIs) may be needed. Treatment may be required. (Reported as ASC-US or ASC-H.) Atypical glandular cells. Cells lining the cervical canal show abnormal changes. Further testing is likely. You may also have treatment to destroy or remove problem cells. (Reported as AGC.) Mild dysplasia. Cells show distinct changes. More testing or HPV typing may be done. You may alsohave treatment to destroy or remove problem cells. (Reported as low-grade SHAYLA or RADHIKA 1.) Moderate to severe dysplasia. Cells show precancerous changes. Or, noninvasive cancer (carcinoma in situ) may be present. Treatment to destroy or remove problem cells is likely. (Reported as high-grade SHAYLA or RADHIKA 2 or RADHIKA 3.) Cancer. Different types of cancer may be detected by your Pap test. More tests to assess the cancer's extent are likely. The type of treatment will depend on the test results and other factors, suchas age and health history. (Reported as squamous cell carcinoma, endocervical adenocarcinoma in situ, or adenocarcinoma.) [employer] last reviewed this educational content on 12/31/201619993661-0421 [employer]. [address] [place] [address], [place] [address]. All rights reserved. This information is not intended as a substitute for professional medical care. Always follow your healthcare professional's instructions. documented in this encounter Progress Notes Hollie Arriaga, TECHNICAL DATA ANALYST - 12/01/2019 9:45 AM CDT Chief complaint: Chief Complaint Patient presents with Initial Visit HPI .CC: Initial Visit Apolonia Montero is a 24 year old, , /White female. Patient's last menstrual period was 09/20/2019 (approximate). She is 10w2d with an intrauterine . Her Estimated Date of Delivery: 06/26/20. She is being seen today for her first obstetrical visit. Patient complains of nausea and vomiting since finding out of , but was placed on medication at ER visit Patient is unsure of LMP but know it was before 09/24/2019. Patient reports H/O Depression no medication dn denies nay symptoms today. She reports +FM and denies contractions, LOF and bleeding today.Patient denies current or past physical, sexual or emotional abuse. OB History Para Term AB Living 3 2 2 2 SAB TAB Ectopic Multiple Live Births 2 # Outcome Date GA Lbr Luis/2nd Weight Sex Delivery Anes PTL Lv 3 Current 2 Term 09/23/18 40w1d F Vag-Spont SHELLEY 1 Term 03/24/16 41w0d F VAGINAL SHELLEY Histories OB History Para Term AB Living 3 2 2 2 SAB TAB Ectopic Multiple Live Births 2 # Outcome Date GA Lbr Luis/2nd Weight Sex Delivery Anes PTL Lv 3 Current 2 Term 09/23/18 40w1d F Vag-Spont SHELLEY 1 Term 03/24/16 41w0d F VAGINAL SHELLEY Past Medical History: Diagnosis Date Anxiety no meds Atypical squamous cells of undetermined significance (ASCUS) on Papanicolaou smear of cervix 10/20/2017 BV (bacterial vaginosis) 08/09/2015 Depression denies si/hi, no meds Genital herpes 2018 Insomnia no meds Marijuana use 02/11/2018 Ovarian cyst Family History Problem Relation Age of Onset Diabetes Maternal Grandmother Heart Maternal Grandmother High cholesterol Maternal Grandmother Hypertension Maternal Grandmother Depression Mother Cancer Mother Thyroid Anxiety Mother Cancer Sister cervical Arthritis NoFHx Asthma NoFHx defects NoFHx Breast Cancer NoFHx Colon Cancer NoFHx Ovarian Cancer NoFHx Genetic NoFHx Mental retardation NoFHx Neurological NoFHx Osteoporosis NoFHx Psychiatry NoFHx Other - see comments NoFHx Family Status Relation Name Status MGMo (Not Specified) Mo (Not Specified) Sis (Not Specified) NoFHx (Not Specified) History reviewed. No pertinent surgical history. Social History Socioeconomic History Marital status: Single Spouse name: Not on file Number of children: Not on file Years of education: Not on file Highest education level: Not on file Occupational History Not on file Social Needs Financial resource strain: Not on file Food insecurity: Worry: Not on file Inability: Not on file Transportation needs: Medical: Not on file Non-medical: Not on file Tobacco Use Smoking status: Former Smoker Smokeless tobacco: Never Used Tobacco comment: quit 11/01/2019 was smoking 1 pack per day Substance and Sexual Activity Alcohol use: No Alcohol/week: 0.0 standard drinks Drug use: Yes Types: Marijuana Comment: 02/11/2018 Sexual activity: Yes Partners: Male Comment: Last sexual intercourse 11/30/2019 Lifestyle Physical activity: Days per week: Not on file Minutes per session: Not on file Stress: Not on file Relationships Social connections: Talks on phone: Not on file Gets together: Not on file Attends jew service: Not on file Active member of club or organization: Not on file Attends meetings of clubs or organizations: Not on file Relationship status: Not on file Intimate partner violence: Fear of current or ex partner: Not on file Emotionally abused: Not on file Physically abused: Not on file Forced sexual activity: Not on file Other Topics Concern Not on file Social History Narrative Pt denies current or past physical, sexual or emotional abuse. Pt has no pets. Pt lives with her parents. Social History Substance and Sexual Activity Sexual Activity Yes Partners: Male Comment: Last sexual intercourse 11/30/2019 Genetic Screen Autism / Mental Retardation: No Tian Disease: No Congenital Heart Defect: No Cystic Fibrosis: No Down Syndrome: No Familial Dysautonomia: No Hemophilia or other Blood Disorders: No Melva Chorea: No Maternal Metabolic Disorder--specify (eg. Type 1 Diabetes, PKU): No Muscular Dystrophy: No Neural Tube Defect: No Recurrent Loss or a Stillbirth: No Sickle Cell Disease or Trait: No Nitesh Sachs: No Teratological Substances (specify type & strength/dose) since LMP: No Thalassemia: No Other Inherited Genetic or Chromosomal Disorder (specify): No No Significant History of Genetic Disorders: No Significant History of Genetic Disorders Labs Labs are pending. Radiology No new radiology. Allergies Apolonia is allergic to reglan [metoclopramide hcl]. Medications Apolonia has a current medication list which includes the following prescription(s): vit [id number]-[id number], ondansetron, and promethazine. Review of Systems Constitutional: Negative for activity change, appetite change, fatigue, unexpected weight change, weight gain and weight loss. HENT: Negative for sore throat. Eyes: Negative for visual disturbance. Respiratory: Negative for cough and shortness of breath. Breasts: Negative for discharge, mass, pain and unequal size. Cardiovascular: Negative for chest pain, palpitations and leg swelling. Gastrointestinal: Positive for nausea and vomiting. Negative for abdominal pain, anal bleeding, blood in stool, constipation, diarrhea and rectal pain. Genitourinary: Negative for bladder incontinence, dysuria, urgency, flank pain, vaginal bleeding, vaginal discharge, genital sores, vaginal pain and pelvic pain. Skin: Negative for color change and rash. Neurological: Negative. Negative for dizziness, syncope and headaches. Psychiatric/Behavioral: Negative for confusion, self-injury and sleep disturbance. The patient is not nervous/anxious. Hematological: Negative for cold intolerance and heat intolerance. Endocrine: Negative for hair loss, cold intolerance, heat intolerance, weight gain and weight loss. BP 113/77 (BP Location: Right arm, Patient Position: Sitting, BP CUFF SIZE: Adult Medium) | Pulse 76 | Temp 36.3 C (97.4 F) (Oral) | Resp 16 | Ht 5' 5" (1.651 m) | Wt 190 lb 8 oz (86.4 kg) | LMP 09/20/2019 (Approximate) | BMI 31.70 kg/m Pregravid BMI: 33.3 Physical Exam Vitals reviewed. Constitutional: She is oriented to person, place, and time. She appears well- developed, well-nourished and well-groomed. She has no deformities. Neck: No tenderness and no mass. No thyroid nodules and no thyromegaly palpated. Cardiovascular: Regular rate and rhythm. No murmur auscultated. Pulmonary/Chest: Breath sounds clear to auscultation. Normal inspiratory effort. Abdominal: Abdomen is soft. No mass palpated. No tenderness present. There is no guarding. Neuro/Psychiatric: She has a normal mood and affect. She is oriented to person, place, and time. Skin: Skin normal. No lesion and no rash present. Tattoo present on bilateral arms Breast: Right breast exhibits no mass, no nipple discharge and no tenderness. Left breast exhibits no mass, no nipple discharge and no tenderness. Normal left breast and normal right breast Rectal: normal rectum External genitalia: Normal external genitalia appropriate for age. Normal hair distribution. No labial lesion. [employer] Agent present for the exam: NGOC Kimball Student Vagina:Normal vagina. No lesion inspected. No abnormal vaginal discharge found. Cervix: Normal cervix. No lesion. No tenderness and no discharge present. Uterus: Uterus is normal size and non-tender. 10cm Normal uterus Adnexa: Right adnexa without tenderness or mass. Left adnexa without tenderness or mass. Normal leftadnexa and normal right adnexa Anus/perineum: Normal perineum. PHYSICAL: General Exam: HEENT: Normal Thyroid: Normal Lymph Node: Normal Neurological: Normal Abdomen: Normal Skin: Normal Extremities: Normal Pelvic Exam: Vulva: Normal Vagina: Normal [employer] Agent present for the exam: NGOC [employer] Student Cervix: Normal Uterus: 8cm Weeks Adnexa: Normal Spines: Average Sacrum: Concave Subpubic Arch: Normal Assessment/Plan Supervision of high risk , antepartum (primary encounter diagnosis) Multiparity Comment: Routine NOB Plan: POCT TEST, POCT URINALYSIS W/O SPECIFIC GRAVITY, GLUCOSE 1 HOUR POST PRANDIAL, PAP Smear-Liquid Based, GC & CHLAMYDIA AMPLIFIED ASSAY, TRICHOMONAS AMPLIFIED ASSAY, CBC WITH DIFF, HEPATITIS B SURFACE ANTIGEN, HIV 1/2 AG-AB WITH REFLEX, POCT URINALYSIS W SPECIFIC GRAVITY, WORKUP, BLOOD BANK, RUBELLA SCREEN (SORAIDA) IGG, GALV ONLY - SYPHILIS IGG/IGM, URINE CULTURE, VZV ANTIBODY SCREEN, CONSULT MATERNAL MEDICINE ULTRASOUND Preferred Location: [place], vit [id number]-[id number]-dha (SELECT-OB + DHA) 29 mg iron-1 mg -250 mg combo pack Denies zika virus risk, signs and symptoms such as fever,rash,joint pain, conjunctivitis (red eyes), muscle pain, headaches; outside [place] travel to areas affected by zika, and FOB exposure to zika.Educated on use of mosquito repellent. Covid x12 screening done, screening results are negative. History of herpes simplex type 2 infection Comment: hisotry Plan: will treat at 36wks Nausea and vomiting during prior to 22 weeks gestation Comment: on medication Plan: will continue to monitor History of depression Comment: history of depression, denies any depression or any other thoughts or feelings or SI and HI Plan: will continue to monitor Tobacco abuse Comment: stopped with Plan: smoking cessation Class 1 obesity with body mass index (BMI) of 31.0 to 31.9 in adult, unspecified obesity type, unspecified whether serious comorbidity present BMI 31.0-31.9,adult Comment: BMI: 31.70 Plan: Patient encouraged to limit weight gain and advised to eat healthy diet, fruits, vegetables, increased fiber and water intake and protein low in fat. Encouraged exercise for 30 min everyday; begin regimen with caution to prevent injury. Encouraged to decrease BMI to <25. Return to clinic in 4 weeks. Discussed treatment options. Medications as ordered. Reviewed patient instructions and provided printed copy. This visit did not involve counseling and coordination that comprised more than 50% of the visit time. CARTER Ga 12/01/2019 10:52 AM Tyree Rothman RN - 12/01/2019 9:45 AM CDTPatient is 24 year old female here for current . Patient is . 1) Previous delivery methods vaginal 2) Patient is mild/moderate experiencing cramping 3) Patient is not experiencing bleeding. 4) LMP 09/20/2019 approximate 5) Last Pap was: 10/13/2017 Results: ASCUS 6) Have you had a flu vaccine this season? NO 7) PPD candidate? NO 8) Patient complains of Severe nausea on meds from ED. Mild/Moderate Cramping 9) Patient denies history of physical, emotional, or sexual abuse. Patient states she currently feels safe at home. documented in this encounter Plan of Treatment Date Type Specialty Care Team Description 12/29/2019 Routine Visit OB Satellites Maria G Arriaga, TECHNICAL DATA ANALYST [address] [place] [address] [phone] Name Type Priority Associated Diagnoses Order S chedule GLUCOSE 1 HOUR POST LAB Routine Supervision of high r isk Expected: 12/01/2019, PRANDIAL , antepartum s: 11/30/2020 PAP Smear-Liquid Based LAB Routine Supervision of hig h risk Expected: 12/01/2019, , antepartum s: 11/30/2020 GC & CHLAMYDIA AMPLIFIED LAB Routine Supervision of h igh risk Expected: 12/01/2019, ASSAY , antepartum s: 11/30/2020 TRICHOMONAS AMPLIFIED LAB Routine Supervision of high risk Expected: 12/01/2019, ASSAY , antepartum s: 11/30/2020 CBC WITH DIFF LAB Routine Supervision of high risk Ex pected: 12/01/2019, , antepartum s: 11/30/2020 HEPATITIS B SURFACE LAB Routine Supervision of high r isk Expected: 12/01/2019, ANTIGEN , antepartum s: 11/30/2020 HIV 1/2 AG-AB WITH LAB Routine Supervision of high ri sk Expected: 12/01/2019, REFLEX , antepartum s: 11/30/2020 POCT URINALYSIS W LAB Routine Supervision of high ris k 20 Occurrences starting SPECIFIC GRAVITY , antepartum until 09/26/2020 WORKUP, BLOOD LAB Routine Supervision of hig h risk Expected: 12/01/2019, BANK , antepartum s: 11/30/2020 RUBELLA SCREEN (SORAIDA) LAB Routine Supervision of hig h risk Expected: 12/01/2019, IGG , antepartum s: 11/30/2020 GALV ONLY - SYPHILIS LAB Routine Supervision of high risk Expected: 12/01/2019, IGG/IGM , antepartum s: 11/30/2020 URINE CULTURE LAB Routine Supervision of high risk Ex pected: 12/01/2019, , antepartum s: 11/30/2020 VZV ANTIBODY SCREEN LAB Routine Supervision of high r isk Expected: 12/01/2019, , antepartum s: 11/30/2020 Health Maintenance Due Date Last Done Comments HPV VACCINES (1 - Female 2005 2-dose series) INFLUENZA VACCINE (#1) 2020 06/30/2018, 03/19/2018, 08/08/2015 PAP SMEAR 10/13/2020 10/13/2017 Depression Screening 11/30/2020 12/01/2019, 12/01/2019 DTaP,Tdap,and Td Vaccines (3 06/30/2028 06/30/2018, - Td) 12/14/2015 PNEUMOCOCCAL 0-64 YEARS Aged Out No longe r eligible based COMBINED SERIES on patient's age to complete this to [facility] documented as of this encounter Procedures Procedure Name Priority Date/Time Associated Diagnosis Comme nts POCT URINALYSIS W/O Routine 12/01/2019 10:00 Supervision of ia gh Results for this SPECIFIC GRAVITY AM CDT risk , procedur e are in antepartum the results section. POCT TEST Routine 12/01/2019 10:00 Supervision of ia gh Results for this AM CDT risk , procedure ar e in antepartum the results section. documented in this encounter Results POCT URINALYSIS W/O SPECIFIC GRAVITY (12/01/2019 10:00 AM CDT) Pathologist Sig nature POCT PH U 5 5 - 8 mg/dl POCT U LEUK EST Trace Negative - Negative POCT U NIT Pos Negative - Negative POCT U PROT Trace Negative - Negative POCT U GLU Neg Negative - Negative POCT U KETONE 2+ Negative - Negative POCT U BLD Neg Negative - Negative Specimen Urine - URINE, CLEAN CATCH POCT TEST (12/01/2019 10:00 AM CDT) Pathologist Sig nature POCT PREG Positive On board controls acceptable Yes with C Line POCT PREG LOT # POCT PREG TEST DATE Specimen Urine - URINE, CLEAN CATCH documented in this encounter Visit Diagnoses Diagnosis Supervision of high risk , ante - Primary Multiparity History of herpes simplex type 2 infecti on Personal history of other infectious and parasitic disease Nausea and vomiting during [place] or to 22 weeks gestation History of depression Personal history of other mental disorde r Tobacco abuse Tobacco use disorder Class 1 obesity with body mass index (BM I) of 31.0 to 31.9 in adult, unspecified obesity type, unspecified whether seriou s comorbidity present BMI 31.0-31.9,adult Body Mass Index 31.0-31.9, adult documented in this encounter Insurance Payer Benefit Plan / Subscriber ID Effective Dates Phone Addre ss Type Group [facility] MEDICAID OF xxxxxxxxx 2019-Present [phone] [address] [place] [id number] [place] [phone] documented as of this encounter Advance Directives Name Relationship Healthcare Agent Communication Relationship Bryant Styles Spouse Primary healthcare agent Kathleen Perkinses Mother [facility] healthcare agent (Mobile)
--- OUTSIDE RECORDS SUMMARY | 2020-01-21 03:09 | XMS REPORT | Summary of Care ---
:1995 Author Organization [facility] - Health Address [address] [place] [id number] Care Team Providers Name Role Phone Pcp, Does Not Have A Primary Care Provider Encounter Details Date Type Department Care Team Description 12/01/2019 Orders Only [facility] Doctor Unassigned, No [address] [facility] [place] [address] Allergies Active Allergy Reactions Severity Noted Date Comments Metoclopramide Hcl Anxiety 03/15/2018 documented as of this encounter (statuses as of 12/01/2019) Medications Medication Sig Dispensed Refills Start Date [...] of 12/01/2019) Active Problems Problem Noted Date Glucose tolerance [...] Treatment Date Type Specialty Care Team Description 12/01/2019 Office Visit OB [facility] Hollie Arriaga FNP [address] [place] [address] [phone] Arrived 1, [facility] Room 12/01/2019 Initial Visit OB Maria G Mayfield FNP [address] [place], [place] [address] [phone] Health Maintenance Due Date Last Done Comments HPV VACCINES (1 - Female 2005 2-dose series) Depression Screening 2006 INFLUENZA VACCINE (#1) 2020 06/30/2018, 03/19/2018, 08/08/2015 PAP SMEAR 10/13/2020 10/13/2017 DTaP,Tdap,and Td Vaccines (3 06/30/2028 06/30/2018, - Td) 12/14/2015 PNEUMOCOCCAL 0-64 YEARS Aged Out No longe r eligible based COMBINED SERIES on patient's age to complete this to [facility] documented as of this encounter Procedures Procedure Name Priority Date/Time Associated Diagnosis Comme nts ASSIGNMENT OF BENEFITS Routine 12/01/2019 9:13 AM CDT documented in this encounter Results Not on filedocumented in this encounter Insurance Payer Benefit Plan / Subscriber ID Effective Dates Phone Addre ss Type Group [employer] MEDICAID OF xxxxxxxxx 2019-Present [phone] [address] Medicaid [place] [id number] [place] [phone] documented as of this encounter Advance Directives Name Relationship Healthcare Agent Communication Relationship Bryant Styles Spouse Primary healthcare agent [phone] (Mobile) Kathleen Montero Mother [employer] [place] [phone] agent (Mobile)
--- OUTSIDE RECORDS SUMMARY | 2020-01-21 03:10 | XMS REPORT | Summary of Care ---
:1995 Author Organization [facility] Address [address] [place] [address] Care Team Providers Name Role Phone Pcp, Does Not Have A Primary Care Provider Reason for Referral (Routine) Status Reason Specialty Diagnoses / Referred By Referred To Procedures Contact Contact New Request Maternal Diagnoses Supervision of high risk , antepartum Hollie Arriaga Medicine Procedures CONSULT MATERNAL MEDICINE ULTRASOUND Preferred Location: CARTER R[facility] [address] [place] [address] Reason for Visit Reason Comments Initial Visit Encounter Details Date Type Department Care Team Description 12/01/2019 Initial [facility]- Hollie Arriaga upervision of high risk , antepartum (Primary Dx); Visit CARTER Rucker Multiparity; [address] [place] [address] [facility] History o f herpes simplex type 2 infection; [address] [place] Nausea and vomiting during [place] or to 22 weeks gestation; [place], [place] History of depr ession; [phone] Tobacco abuse; [phone] Class 1 obesity with body mass index (BM I) of 31.0 to 31.9 in adult, unspecified obesity type, unspecified whether serious comorbidity present; [phone] BMI 31.0-31.9,a dult (Fax) Allergies Active Allergy [...] Packet 30 Each 6 12/01/19 Act prince 92-kpbi-abywc-dha by mouth daily. 20 (SELECT-OB + DHA) [...] 20s.But the USPSTF does not recommend CBE. SA Ignite last reviewed this educational content on 03/02/201719993100-3560 The [employer]. [address] [place] [address]. All rights reserved. This information is not [...] can make now to protect your future. [employer] Ignite last reviewed this educational content on 05/02/201819992254-7319 The [employer]. [address] [place] [address], [place] [address]. All rights reserved. This information is not [...] her child during , childbirth, and . PlayHaven reviewed this educational content on 10/31/201819993888-2612 The [employer], [employer]. [address] [place] [address], [place] [address]. All rights reserved. This information is not intended as a substitute for professional medical care. Always follow your healthcare professional's instructions. Patient Education Clinical Breast Exam Many health organizations recommend a yearly clinical breast exam. This exam may be done by a ese teacher, family healthcare provider, nurse practitioner, nurse pants maker, or specially trained nurse. Yearly breast exams [...] Guidelines for having clinical breast exams The [employer] College of Obstetricians and Gynecologists recommends that [...] provider about what is best for you. PlayHaven reviewed this educational content on 12/31/2016 The [employer]. [address] [place] [address], [place] [address]. All rights reserved. This information is not [...] breast self-examination (BSE). These experts include the [place] Society and the [place] Congress of Obstetricians and Gynecologists. Some experts [...] benign. This means they are not cancer. SA Ignite last reviewed this educational content on 12/31/201619990337-2480 The [employer]. [address] [place] [address]. All rights reserved. This information is not [...] get this muchfrom the food you eat. [employer] Ignite last reviewed this educational content on 12/31/201619992356-8645 The [employer]. [address] [place] [address]. All rights reserved. This information is not [...] carcinoma, endocervical adenocarcinoma in situ, or adenocarcinoma.) SA Ignite last reviewed this educational content on 12/31/201619998858-4759 The [employer]. [address] [place] [address], [place] [address]. All rights reserved. This information is not intended as a substitute for professional medical care. Always follow your healthcare professional's instructions. documented in this encounter Progress Notes Hollie Arriaga, ROUTE RIDER - 12/01/2019 9:45 AM CDT Chief complaint: [...] file Gets together: Not on file Attends shinto service: Not on file Active member of [...] list which includes the following prescription(s): vit 89-dkbx-gdgur-dha, ondansetron, and promethazine. Review of Systems Constitutional: [...] age. Normal hair distribution. No labial lesion. Field Artillery Operations Specialist present for the exam: NGOC Kimball Student [...] Normal Pelvic Exam: Vulva: Normal Vagina: Normal Field Artillery Operations Specialist present for the exam: NGOC Kimball Student [...] SCREEN, CONSULT MATERNAL MEDICINE ULTRASOUND Preferred Location: [place], vit 04-qnet-ydyfd-dha (SELECT-OB + DHA) 29 mg iron-1 mg [...] Routine Visit OB Satellites Maria G Arriaga, ROUTE RIDER [address] [place] [address] 15 [phone] Name Type Priority Associated Diagnoses Order S chedule GLUCOSE 1 HOUR POST LAB Routine Supervision of high E xpected: 12/01/2019, PRANDIAL risk , Expires: 06/2020 antepartum PAP Smear-Liquid Based LAB Routine Supervision of hig h Expected: 12/01/2019, risk , Expires: 06/2020 antepartum GC & CHLAMYDIA AMPLIFIED LAB Routine Supervision of h igh Expected: 12/01/2019, ASSAY risk , Expires: 06/2020 antepartum TRICHOMONAS AMPLIFIED LAB Routine Supervision of high Expected: 12/01/2019, ASSAY risk , Expires: 06/2020 antepartum CBC WITH DIFF LAB Routine Supervision of high Expecte d: 12/01/2019, risk , Expires: 06/2020 antepartum HEPATITIS B SURFACE LAB Routine Supervision of high E xpected: 12/01/2019, ANTIGEN risk , Expires: 06/2020 antepartum HIV 1/2 AG-AB WITH REFLEX LAB Routine Supervision of high Expected: 12/01/2019, risk , Expires: 06/2020 antepartum POCT URINALYSIS W LAB Routine Supervision of high 20 Occurrences starting SPECIFIC GRAVITY risk , 12/01/19 20 until antepartum 09/26/2020 WORKUP, BLOOD LAB Routine Supervision of [facility] h Expected: 12/01/2019, BANK risk , Expires: 06/2020 antepartum RUBELLA SCREEN (SORAIDA) LAB Routine Supervision of [facility] h Expected: 12/01/2019, IGG risk , Expires: 06/2020 antepartum GALV ONLY - SYPHILIS LAB Routine Supervision of high Expected: 12/01/2019, IGG/IGM risk , Expires: 06/2020 antepartum URINE CULTURE LAB Routine Supervision of high Expecte d: 12/01/2019, risk , Expires: 06/2020 antepartum VZV ANTIBODY SCREEN LAB Routine Supervision of [facility] E xpected: 12/01/2019, risk , Expires: 06/2020 antepartum CBC WITH DIFFERENTIAL LAB Routine Supervision of [facility] Ordered: 12/01/2019 risk , antepartum Health Maintenance Due Date Last Done Comments HPV VACCINES (1 - Female 2005 2-dose series) INFLUENZA VACCINE (#1) 2020 06/30/2018, 03/19/2018, 08/08/2015 PAP SMEAR 10/13/2020 10/13/2017 Depression Screening 11/30/2020 12/01/2019, 12/01/2019 DTaP,Tdap,and Td Vaccines (3 06/30/2028 06/30/2018, - Td) 12/14/2015 PNEUMOCOCCAL 0-64 YEARS Aged Out No longe r eligible based COMBINED SERIES on patient's age to complete this to [facility] documented as of this encounter Procedures Procedure Name Priority Date/Time Associated Diagnosis Comme nts POCT URINALYSIS W/O Routine 12/01/2019 10:00 Supervision of nv gh Results for this SPECIFIC GRAVITY AM CDT risk , procedur e are in antepartum the results section. POCT TEST Routine 12/01/2019 10:00 Supervision of nv gh Results for this AM CDT risk [...] Effective Dates Phone Addre ss Type Group [facility] MEDICAID OF xxxxxxxxx 2019-Present [phone] [address] Medicaid [place] [id number] [place] [address] documented as of this encounter Advance Directives Name Relationship Healthcare Agent Communication Relationship Bryant Estradana Spouse Primary healthcare agent Kathleen Montero Mother First [facility] healthcare [phone] agent (Mobile)
--- OUTSIDE RECORDS SUMMARY | 2020-01-21 03:11 | XMS REPORT | Summary of Care ---
:1995 Author Organization [facility] Address [address] [place] [address] Care Team Providers Name Role Phone Pcp, Does Not Have A Primary Care Provider Reason for Referral (Routine) Status Reason Specialty Diagnoses / Referred By Referred To Procedures Contact Contact New Request Maternal Diagnoses Supervision of high risk , antepartum Hollie Arriaga Medicine Procedures CONSULT MATERNAL MEDICINE ULTRASOUND Preferred Location: [facility] R[facility] [address] [place] [address] Reason for Visit Reason Comments Initial Visit Encounter Details Date Type Department Care Team Description 12/01/2019 Initial [facility]- Hollie Arriaga upervision of high risk , antepartum (Primary Dx); Visit CARTER Rucker Multiparity; [address] [place] [address] [facility] History o f herpes simplex type 2 infection; [address] [place] Nausea and vomiting during [place] or to 22 weeks gestation; [place], [place] History of depr ession; [phone] Tobacco abuse; [phone] Class 1 obesity with body mass index (BM I) of 31.0 to 31.9 in adult, unspecified obesity type, unspecified whether serious comorbidity present; [phone] BMI 31.0-31.9,a dult (Fax) Allergies Active Allergy [...] Packet 30 Each 6 12/01/19 Act prince 73-dbzk-fcyzy-dha by mouth daily. 20 (SELECT-OB + DHA) [...] 20s.But the USPSTF does not recommend CBE. VidRocket last reviewed this educational content on 03/02/201719990629-6226 The [employer]. [address] [place] [address]. All rights reserved. This information is not [...] can make now to protect your future. VidRocket last reviewed this educational content on 05/02/201819997008-5978 The [employer]. [address] [place] [address], [place] [address]. All rights reserved. This information is not [...] her child during , childbirth, and . [employer] reviewed this educational content on 10/31/201819994711-9427 The Business [employer] [place], [employer]. [address] [place] [address], [place] [address]. All rights reserved. This information is not intended as a substitute for professional medical care. Always follow your healthcare professional's instructions. Patient Education Clinical Breast Exam Many health organizations recommend a yearly clinical breast exam. This exam may be done by a plant facilities technician, family healthcare provider, nurse practitioner, nurse production support specialist, or specially trained nurse. Yearly breast exams [...] Guidelines for having clinical breast exams The [employer] College of Obstetricians and Gynecologists recommends that [...] provider about what is best for you. [employer] reviewed this educational content on 12/31/2016 The [employer]. [address] [place] [address], [place] [address]. All rights reserved. This information is not [...] breast self-examination (BSE). These experts include the [place] Cancer Society and the [place] Congress of Obstetricians and Gynecologists. Some experts [...] benign. This means they are not cancer. VidRocket last reviewed this educational content on 12/31/201619996158-4671 The [employer]. [address] [place] [address]. All rights reserved. This information is not [...] get this muchfrom the food you eat. VidRocket last reviewed this educational content on 12/31/201619995559-1828 The [employer]. [address] [place] [address]. All rights reserved. This information is not [...] carcinoma, endocervical adenocarcinoma in situ, or adenocarcinoma.) VidRocket last reviewed this educational content on 12/31/201619994321-2700 The [employer]. [address] [place] [address], [place] [address]. All rights reserved. This information is not intended as a substitute for professional medical care. Always follow your healthcare professional's instructions. documented in this encounter Progress Notes Hollie Arriaga, COLD ROLL INSPECTOR - 12/01/2019 9:45 AM CDT Chief complaint: [...] file Gets together: Not on file Attends religion service: Not on file Active member of [...] list which includes the following prescription(s): vit 56-dvio-jcyfc-dha, ondansetron, and promethazine. Review of Systems Constitutional: [...] age. Normal hair distribution. No labial lesion. Video Photographer present for the exam: NGOC Kimball Student [...] Normal Pelvic Exam: Vulva: Normal Vagina: Normal Video Photographer present for the exam: NGOC Kimball Student [...] SCREEN, CONSULT MATERNAL MEDICINE ULTRASOUND Preferred Location: [place], vit 65-reef-nhfbs-dha (SELECT-OB + DHA) 29 mg iron-1 mg [...] Routine Visit OB Satellites Maria G Arriaga, COLD ROLL INSPECTOR [address] [place] [address] [phone] Name Type Priority Associated Diagnoses Date/Ti me GLUCOSE 1 HOUR POST LAB Routine Supervision of high r isk 12/01/2019 11:00 AM PRANDIAL , antepartum CDT PAP Smear-Liquid Based LAB Routine Supervision of hig h risk 12/01/2019 11:09 AM , antepartum CDT GC & CHLAMYDIA AMPLIFIED LAB Routine Supervision of h igh risk 12/01/2019 11:09 AM ASSAY , antepartum CDT TRICHOMONAS AMPLIFIED LAB Routine Supervision of high risk 12/01/2019 11:09 AM ASSAY , antepartum CDT CBC WITH DIFF LAB Routine Supervision of high risk 11:00 AM , antepartum CDT HEPATITIS B SURFACE LAB Routine Supervision of high r isk 12/01/2019 11:00 AM ANTIGEN , antepartum CDT HIV 1/2 AG-AB WITH REFLEX LAB Routine Supervision of high risk 12/01/2019 11:00 AM , antepartum CDT RUBELLA SCREEN (SORAIDA) LAB Routine Supervision of hig h risk 12/01/2019 11:00 AM IGG , antepartum CDT GALV ONLY - SYPHILIS LAB Routine Supervision of high risk 12/01/2019 11:00 AM IGG/IGM , antepartum CDT URINE CULTURE LAB Routine Supervision of high risk 11:09 AM , antepartum CDT VZV ANTIBODY SCREEN LAB Routine Supervision of high r isk 12/01/2019 11:00 AM , antepartum CDT CBC WITH DIFFERENTIAL LAB Routine Supervision of high risk 12/01/2019 11:00 AM , antepartum CDT Name Type Priority Associated Diagnoses Order S [...] on patient's age to complete this to [facility] documented as of this encounter Procedures Procedure Name Priority Date/Time Associated Diagnosis Comme nts POCT URINALYSIS W/O Routine 12/01/2019 10:00 Supervision of hi gh Results for this SPECIFIC GRAVITY AM CDT risk , procedur e are in antepartum the results section. POCT TEST Routine 12/01/2019 10:00 Supervision of md gh Results for this AM CDT risk [...] [facility] MEDICAID OF xxxxxxxxx 2019-Present [phone] [address] Medicaid [place] [id number] [place] [phone] documented as of this encounter Advance Directives Name Relationship Healthcare Agent Communication Relationship Bryant Styles Spouse Primary healthcare agent Kathleen Montero Mother First [place] [phone] agent (Mobile)
--- OUTSIDE RECORDS SUMMARY | 2020-01-21 03:11 | XMS REPORT | Summary of Care ---
:1995 Author Organization [facility] Address [address] [place] [address] Care Team Providers Name Role Phone Pcp, Does Not Have A Primary Care Provider Reason for Referral (Routine) Status Reason Specialty Diagnoses / Referred By Referred To Procedures Contact Contact Authorized Maternal Diagnoses Supervision of high risk , antepartum Hollie Arriaga Medicine Procedures CONSULT MATERNAL MEDICINE ULTRASOUND Preferred Location: [facility] [address] [place] [address] Reason for Visit Reason Comments Initial Visit Encounter Details Date Type Department Care Team Description 12/01/2019 Initial [facility]- Hollie Arriaga upervision of high risk , antepartum (Primary Dx); Visit [facility]iparity; [address] [facility] [address] [facility] History o f herpes simplex type 2 infection; Street [place] Nausea and vomiting during [place] or to 22 weeks gestation; [place], [place] History of depr ession; [address] Tobacco abuse; [phone] Class 1 obesity with body mass index (BM I) of 31.0 to 31.9 in adult, unspecified obesity type, unspecified whether serious comorbidity present; [phone] BMI 31.0-31.9,a dult (Fax) Allergies Active Allergy [...] Packet 30 Each 6 12/01/19 Act prince 60-dves-ycupt-dha by mouth daily. 20 (SELECT-OB + DHA) [...] 20s.But the USPSTF does not recommend CBE. NetSanity last reviewed this educational content on 03/02/201719997459-8525 The [employer]. [address] [place] [address]. All rights reserved. This information is not [...] can make now to protect your future. NetSanity last reviewed this educational content on 05/02/201819994157-3083 The [employer]. [address] [place] [address], [place] [address]. All rights reserved. This information is not [...] her child during , childbirth, and . ShopSuey reviewed this educational content on 10/31/201819991417-1556 The [employer], [employer]. [address] [place] [address], [place] [address]. All rights reserved. This information is not intended as a substitute for professional medical care. Always follow your healthcare professional's instructions. Patient Education Clinical Breast Exam Many health organizations recommend a yearly clinical breast exam. This exam may be done by a windows desktop engineer, family healthcare provider, nurse practitioner, nurse jewelry making instructor, or specially trained nurse. Yearly breast exams [...] Guidelines for having clinical breast exams The [place] College of Obstetricians and Gynecologists recommends that [...] provider about what is best for you. ShopSuey reviewed this educational content on 12/31/201619993054-7414 [employer]. [address] [place] [address], [place] [address]. All rights reserved. This information is not [...] breast self-examination (BSE). These experts include the [place] Cancer Society and the [place] Congress of Obstetricians and Gynecologists. Some experts [...] benign. This means they are not cancer. NetSanity last reviewed this educational content on 12/31/201619992868-2631 The [employer]. [address] [place] [address]. All rights reserved. This information is not [...] get this muchfrom the food you eat. NetSanity last reviewed this educational content on 12/31/201619992448-5771 The [employer]. [address] [place] [address]. All rights reserved. This information is not [...] carcinoma, endocervical adenocarcinoma in situ, or adenocarcinoma.) NetSanity last reviewed this educational content on 12/31/201619992725-9028 The [employer]. [address] [place] [address], [place] [address]. All rights reserved. This information is not intended as a substitute for professional medical care. Always follow your healthcare professional's instructions. documented in this encounter Progress Notes Hollie Arriaga, REFUSE DRIVER - 12/01/2019 9:45 AM CDT Chief complaint: [...] No Hemophilia or other Blood Disorders: No [place] Chorea: No Maternal Metabolic Disorder--specify (eg. Type [...] list which includes the following prescription(s): vit 97-ymvh-urzzm-dha, ondansetron, and promethazine. Review of Systems Constitutional: [...] age. Normal hair distribution. No labial lesion. Clerk Cashier present for the exam: NGOC Kimball Student [...] Normal Pelvic Exam: Vulva: Normal Vagina: Normal Clerk Cashier present for the exam: NGOC Kimball Student [...] SCREEN, CONSULT MATERNAL MEDICINE ULTRASOUND Preferred Location: [place], vit 61-ltkf-jexgp-dha (SELECT-OB + DHA) 29 mg iron-1 mg [...] Treatment Date Type Specialty Care Team Description 12/08/2019 Title Checker Visit Maternal Medicine 12/29/2019 Routine Visit OB [facility] Hollie Arriaga, [facility] [address] [place] [address] [phone] Name Type Priority Associated Diagnoses Date/Ti me [...] on patient's age to complete this to [facility] documented as of this encounter Procedures Procedure Name Priority Date/Time Associated Diagnosis Comme nts POCT URINALYSIS W/O Routine 12/01/2019 10:00 Supervision of ma gh Results for this SPECIFIC GRAVITY AM CDT risk , procedur e are in antepartum the results section. POCT TEST Routine 12/01/2019 10:00 Supervision of ma gh Results for this AM CDT risk [...] Effective Dates Phone Addre ss Type Group [facility] MEDICAID OF xxxxxxxxx 2019-Present [phone] [address] Medicaid [place] [id number] [place] [phone] documented as of this encounter Advance Directives Name Relationship Healthcare Agent Communication Relationship Bryant Estradana Spouse Primary healthcare agent [phone] (Mobile) Kathleen Montero Mother [place] [phone] agent (Mobile)
--- OUTSIDE RECORDS SUMMARY | 2020-01-21 03:11 | XMS REPORT | Summary of Care ---
:1994 Author Organization [facility] Address [address] [place] [address] Care Team Providers Name Role Phone Pcp, Does Not Have A Primary Care Provider Reason for Visit Reason Comments Abnormal Lab 1hr ABN Encounter Details Date Type Department Care Team Description 12/02/2019 Telephone [facility] CARLA- Hollie Arriaga Ab normal Lab (1hr ABN) [address] [address] [place], [place] [phone] [address] [phone] Allergies Active Allergy Reactions Severity Noted Date Comments Metoclopramide Hcl Anxiety 03/15/2018 documented as of this encounter (statuses as of 12/02/2019) Medications Medication Sig Dispensed Refills Start Date End Date Status proMETHazine 25 mg Take 1 tablet by 30 tablet 0 02/11/2018 Active tabletIndications: mouth every 6 Nausea and vomiting (six) hours as during prior needed for Nausea to 22 weeks gestation and Vomiting (N/V). ondansetron 4 mg Take 1 tablet by 20 tablet 0 04/19/2019 Active disintegrating mouth every 8 tabletIndications: (eight) hours as Colitis needed for Nausea and Vomiting (N/V). vit Take 1 Packet by 30 Each 6 12/01/2019 Active 90-ujqe-buelm-dha mouth daily. (SELECT-OB + DHA) 29 mg iron-1 mg -250 mg combo packIndications: Supervision of high risk , antepartum documented as of this encounter (statuses as of 12/02/2019) Active Problems Problem Noted Date History of [...] as of this encounter (statuses as of 12/02/2019) Resolved Problems Problem Noted Date Resolved Date Hyperemesis 03/07/2018 03/10/2018 Dehydration 02/27/2018 03/08/2018 11 weeks gestation of 02/27/2018 03/10/20 18 Well woman exam 10/13/2017 02/11/2018 Contraceptive management 10/13/2017 02/11/2018 Nexplanon removal 10/13/2017 02/27/2018 Overview: Per patient reports was only for 2 years History of depression 09/05/2015 10/13/2017 UTI in , antepartum 08/11/2015 10/13/2017 Overview: Still current uti as of 5--16 BV (bacterial vaginosis) 08/09/2015 10/13/2017 documented as of this encounter (statuses as of 12/02/2019) Immunizations Name Administration Dates Next Due Influenza [...] Date Type Specialty Care Team Description 12/08/2019 Lead Pony Rider Visit Maternal Medicine 12/29/2019 Routine Visit OB [facility]ellites Hollie Arriaga, HAIR SPINNER [address] [place], [place] [address] [phone] Name Type Priority Associated Diagnoses Order S chedule 3 HR GLUCOSE TOLERANCE LAB Routine Abnormal maternal glucose Expected: 12/02/2019, PANEL tolerance, antepartum s: 12/01/2020 Health Maintenance Due Date Last Done Comments [...] Results Not on filedocumented in this encounter Visit Diagnoses Diagnosis Abnormal maternal glucose tolerance, ant epartum - Primary documented in this encounter Insurance Payer Benefit Plan / Subscriber ID Effective Dates Phone Addre ss Type Group [facility] MEDICAID OF xxxxxxxxx 2019-Present [phone] [address] Medicaid [place] [id number] [place] [phone] documented as of this encounter Advance Directives Name Relationship Healthcare Agent Communication Relationship Bryant Styles Spouse Primary healthcare agent Kathleen Montero Mother First [place] [phone] agent (Mobile)
--- OUTSIDE RECORDS SUMMARY | 2020-01-21 03:12 | XMS REPORT | Summary of Care ---
:1995 Author Organization [facility] Address [address] [place] [address] Care Team Providers Name Role Phone Pcp, Does Not Have A Primary Care Provider Reason for Visit Reason Comments URINARY TRACT INFECTION Encounter Details Date Type Department Care Team Description 12/06/2019 Telephone [facility] RMCHP- Hollie Arriaga, UR INARY TRACT [place] ANTHROPOLOGY FACULTY MEMBER INFECTION [address] [facility] [address] [place] [address] [place] [phone] [address] [phone] Allergies Active Allergy Reactions Severity Noted Date Comments Metoclopramide Hcl Anxiety 03/15/2018 documented as of this encounter (statuses as of 12/06/2019) Medications Medication Sig Dispensed Refills Start Date End Date Status proMETHazine 25 mg Take 1 tablet 30 tablet 0 02/11/2018 Active tabletIndications: by mouth every Nausea and vomiting 6 (six) hours during prior as needed for to 22 weeks gestation Nausea and Vomiting (N/V). ondansetron 4 mg Take 1 tablet 20 tablet 0 04/19/2019 Active disintegrating by mouth every tabletIndications: 8 (eight) hours Colitis as needed for Nausea and Vomiting (N/V). vit Take 1 Packet 30 Each 6 12/01/2019 Ac tive 77-levy-umnmu-dha by mouth daily. (SELECT-OB + DHA) 29 mg iron-1 mg -250 mg combo packIndications: Supervision of high risk , antepartum Nitrofurantoin&Nit. Take 1 capsule 20 capsule 0 12/06/2019 Active Macrocryst (MACROBID) by mouth 2 100 mg (two) times capsuleIndications: daily for 10 Urinary tract days. infection without hematuria, site unspecified documented as of this encounter (statuses as of 12/06/2019) Active Problems Problem Noted Date History of herpes simplex type 2 infection 12/01/2019 Tobacco abuse 12/01/2019 BMI 31.0-31.9,adult 12/01/2019 Glucose tolerance test abnormal 06/18/2018 12 weeks gestation of 03/15/2018 Rubella non-immune status, antepartum 03/11/2018 Overview: Address in Dyspepsia 03/04/2018 Class 1 obesity with body [...] as of this encounter (statuses as of 12/06/2019) Resolved Problems Problem Noted Date Resolved Date Hyperemesis 03/07/2018 03/10/2018 Dehydration 02/27/2018 03/08/2018 11 weeks gestation of 02/27/2018 03/10/20 18 Well woman exam 10/13/2017 02/11/2018 Contraceptive management 10/13/2017 02/11/2018 Nexplanon removal 10/13/2017 02/27/2018 Overview: Per patient reports was only for 2 years History of depression 09/05/2015 10/13/2017 UTI in , antepartum 08/11/2015 10/13/2017 Overview: Still current uti as of 10-06-15 BV (bacterial vaginosis) 08/09/2015 10/13/2017 documented as of this encounter (statuses as of 12/06/2019) Immunizations Name Administration Dates Next Due Influenza [...] Date Type Specialty Care Team Description 12/08/2019 Button Facing Machine Operator Visit Maternal Medicine 12/29/2019 Routine Visit OB Satellites Hollie Arriaga, ANTHROPOLOGY FACULTY MEMBER [address] [place] [address] [phone] Health Maintenance Due Date Last Done Comments HPV VACCINES (1 - Female 2005 2-dose series) INFLUENZA VACCINE (#1) 2020 06/30/2018, 03/19/2018, 08/08/2015 Depression Screening 11/30/2020 12/01/2019, 12/01/2019 PAP SMEAR 11/30/2022 12/01/2019, 10/13/2017 DTaP,Tdap,and Td Vaccines (3 06/30/2028 06/30/2018, - Td) 12/14/2015 PNEUMOCOCCAL 0-64 YEARS Aged Out No longe r eligible based COMBINED SERIES on patient's age to complete this to [facility] documented as of this encounter Results Not on filedocumented in this encounter Visit Diagnoses Diagnosis Urinary tract infection without hematuri a, site unspecified - Primary documented in this encounter Insurance Payer Benefit Plan / Subscriber ID Effective Dates Phone Addre ss Type Group [employer] MEDICAID OF xxxxxxxxx 2019-Present [phone] [address] Medicaid [place] [id number] [place] [phone] documented as of this encounter Advance Directives Name Relationship Healthcare Agent Communication Relationship Bryant Styles Spouse Primary healthcare agent Kathleen Montero Mother [facility] agent (Mobile)
--- OUTSIDE RECORDS SUMMARY | 2020-01-21 03:12 | XMS REPORT | Summary of Care ---
:1994 Author Organization [facility] Address [address] [place] [address] Care Team Providers Name Role Phone Pcp, Does Not Have A Primary Care Provider Reason for Visit Reason Comments Abnormal Lab 1hr ABN Encounter Details Date Type Department Care Team Description 12/02/2019 Telephone [facility] CARLA- Hollie Arriaga Ab normal Lab (1hr ABN) [address] [address] [place], [place] [phone] [address] [phone] Allergies Active Allergy Reactions Severity Noted Date [...] Packet by 30 Each 6 12/01/2019 Active 69-qudt-ryzon-dha mouth daily. (SELECT-OB + DHA) 29 mg [...] Date Type Specialty Care Team Description 12/08/2019 Licensed Therapist Visit Maternal Medicine 12/29/2019 Routine Visit OB Satellites Hollie Arriaga, COMMUNICATIONS ADMINISTRATOR [address] [place], [place] [address] [phone] Name Type Priority Associated Diagnoses Order S [...] Type Group TMHP MEDICAID OF xxxxxxxxx 2019-Present [phone] [address] Medicaid [place] [id number] [place] [phone] documented as of this encounter Advance Directives Name Relationship Healthcare Agent Communication Relationship Bryant Styles Spouse Primary healthcare agent Kathleen Montero Mother [facility] [place] [phone] agent (Mobile)
--- OUTSIDE RECORDS SUMMARY | 2020-01-21 03:12 | XMS REPORT | Summary of Care ---
:1994 Author Organization [facility] Address [address] [place] [address] Care Team Providers Name Role Phone Pcp, Does Not Have A Primary Care Provider Reason for Visit Reason Comments Abnormal Lab 1hr ABN Encounter Details Date Type Department Care Team Description 12/02/2019 Telephone [facility] CARLA- Hollie Arriaga Ab normal Lab (1hr ABN) [address] [address] [place], [place] [phone] [address] [phone] Allergies Active Allergy Reactions Severity Noted Date [...] Packet by 30 Each 6 12/01/2019 Active 26-ujuz-aulbn-dha mouth daily. (SELECT-OB + DHA) 29 mg [...] Date Type Specialty Care Team Description 12/08/2019 Roofer Visit Maternal Medicine 12/29/2019 Routine Visit OB Satellites Hollie Arriaga, FAMILY WELFARE SOCIAL WORK PROFESSOR [address] [place], [place] [address] [phone] Name Type Priority Associated Diagnoses Order S [...] Type Group TMHP MEDICAID OF xxxxxxxxx 2019-Present [phone] [address] Medicaid [place] [id number] [place] [phone] documented as of this encounter Advance Directives Name Relationship Healthcare Agent Communication Relationship Bryant Styles Spouse Primary healthcare agent Kathleen Montero Mother [facility] [place] [phone] agent (Mobile)
--- OUTSIDE RECORDS SUMMARY | 2020-01-21 03:12 | XMS REPORT | Summary of Care ---
:1994 Author Organization [facility] Address [address] [place] [address] Care Team Providers Name Role Phone Pcp, Does Not Have A Primary Care Provider Reason for Visit Reason Comments URINARY TRACT INFECTION Encounter Details Date Type Department Care Team Description 12/06/2019 Telephone [facility] RMCHP- Hollie Arriaga, UR INARY TRACT [place] POCKET MAKER INFECTION 1108 [facility] [address] [place] [address] [place], [place] [phone] [address] [phone] Allergies Active Allergy Reactions Severity Noted Date [...] Packet 30 Each 6 12/01/2019 Ac tive 70-kqwc-qungj-dha by mouth daily. (SELECT-OB + DHA) 29 [...] Date Type Specialty Care Team Description 12/08/2019 Senior Case Manager Visit Maternal Medicine 12/29/2019 Routine Visit OB Satellites Hollie Arriaga, POCKET MAKER [address] [place] [address] [phone] Health Maintenance Due Date Last Done Comments HPV VACCINES (1 - Female 2005 2-dose series) INFLUENZA VACCINE (#1) 2020 06/30/2018, 03/19/2018, 08/08/2015 Depression Screening 11/30/2020 12/01/2019, 12/01/2019 PAP SMEAR 11/30/2022 12/01/2019, 10/13/2017 DTaP,Tdap,and Td Vaccines (3 06/30/2028 06/30/2018, - Td) 12/14/2015 PNEUMOCOCCAL 0-64 YEARS Aged Out No longe r eligible based COMBINED SERIES on patient's age to complete this to [facility] documented as of this encounter Results Not on filedocumented in this encounter Visit Diagnoses Diagnosis Urinary tract infection without hematuri a, site unspecified - Primary documented in this encounter Insurance Payer Benefit Plan / Subscriber ID Effective Dates Phone Addre ss Type Group TMHP MEDICAID OF xxxxxxxxx 2019-Present [phone] [address] Medicaid [place] [id number] [place] [phone] documented as of this encounter Advance Directives Name Relationship Healthcare Agent Communication Relationship Bryant Styles Spouse Primary healthcare agent Kathleen Montero Mother [facility] agent (Mobile)
--- OUTSIDE RECORDS SUMMARY | 2020-01-21 03:12 | XMS REPORT | Summary of Care ---
:1994 Author Organization [facility] Address [address] [place] [address] Care Team Providers Name Role Phone Pcp, Does Not Have A Primary Care Provider Reason for Visit Reason Comments Abnormal Lab 1hr ABN Encounter Details Date Type Department Care Team Description 12/02/2019 Telephone [facility] CARLA- Hollie Arriaga Ab normal Lab (1hr ABN) [address] [address] [place], [place] [phone] [address] [phone] Allergies Active Allergy Reactions Severity Noted Date [...] Packet by 30 Each 6 12/01/2019 Active 37-snlw-tibzf-dha mouth daily. (SELECT-OB + DHA) 29 mg [...] Date Type Specialty Care Team Description 12/08/2019 Lcsw Visit Maternal Medicine 12/29/2019 Routine Visit OB Satellites Hollie Arriaga, HEALTH INSURANCE SALES AGENT [address] [place] [address] [phone] Name Type Priority Associated Diagnoses Order S [...] on patient's age to complete this to [facility] documented as of this encounter Results Not on filedocumented in this encounter Visit Diagnoses Diagnosis Abnormal maternal glucose tolerance, ant epartum - Primary documented in this encounter Insurance Payer Benefit Plan / Subscriber ID Effective Dates Phone Addre ss Type Group TMHP MEDICAID OF xxxxxxxxx 2019-Present [phone] [address] Medicaid [place] [id number] [place] [phone] documented as of this encounter Advance Directives Name Relationship Healthcare Agent Communication Relationship Bryant Styles Spouse Primary healthcare agent Kathleen Montero Mother [facility] [place] [phone] agent (Mobile)
--- OUTSIDE RECORDS SUMMARY | 2020-01-21 03:12 | XMS REPORT | Summary of Care ---
:1994 Author Organization [facility] Address [address] [place] [address] Care Team Providers Name Role Phone Pcp, Does Not Have A Primary Care Provider Reason for Visit Reason Comments URINARY TRACT INFECTION Encounter Details Date Type Department Care Team Description 12/06/2019 Telephone [facility] RMCHP- Hollie Arriaga, UR INARY TRACT [place] WEBBING INSPECTOR INFECTION 1108 [facility] [address] [place] [address] [place], [place] [phone] [address] [phone] Allergies Active Allergy Reactions Severity Noted Date [...] Packet 30 Each 6 12/01/2019 Ac tive 43-dxih-gbqay-dha by mouth daily. (SELECT-OB + DHA) 29 [...] Date Type Specialty Care Team Description 12/08/2019 Inside Sales Administrator Visit Maternal Medicine 12/29/2019 Routine Visit OB Satellites Hollie Arriaga, WEBBING INSPECTOR [address] [place] [address] [phone] Health Maintenance Due Date Last Done Comments [...] Type Group TMHP MEDICAID OF xxxxxxxxx 2019-Present [phone] [address] Medicaid [place] [id number] [place] [phone] documented as of this encounter Advance Directives Name Relationship Healthcare Agent Communication Relationship Bryant Styles Spouse Primary healthcare agent Kathleen Montero Mother [facility] agent (Mobile)
--- OUTSIDE RECORDS SUMMARY | 2020-01-21 03:13 | XMS REPORT | Summary of Care ---
:1994 Author Organization [facility] Address [address] [place] [address] Care Team Providers Name Role Phone Pcp, Does Not Have A Primary Care Provider Reason for Visit Reason Comments Results Encounter Details Date Type Department Care Team Description 12/06/2019 Telephone [facility] RMCHP- A Hollie Lemus, ADJUSTER ELECTRICAL CONTACTS Results 1108 [facility] [place] [address] [place] [address] [place] [address] [phone] Allergies Active Allergy Reactions Severity Noted Date [...] Packet 30 Each 6 12/01/2019 Ac tive 58-thxw-xdeqe-dha by mouth daily. (SELECT-OB + DHA) 29 [...] Date Type Specialty Care Team Description 12/08/2019 Taker Off Visit Maternal Medicine 12/29/2019 Routine Visit OB Satellites Hollie Arriaga, ADJUSTER ELECTRICAL CONTACTS [address] [place], [place] [address] [phone] Health Maintenance Due Date Last Done Comments HPV VACCINES (1 - Female 2005 2-dose series) INFLUENZA VACCINE (#1) 2020 06/30/2018, 03/19/2018, 08/08/2015 Depression Screening 11/30/2020 12/01/2019, 12/01/2019 PAP SMEAR 11/30/2022 12/01/2019, 10/13/2017 DTaP,Tdap,and Td Vaccines (3 06/30/2028 06/30/2018, - Td) 12/14/2015 PNEUMOCOCCAL 0-64 YEARS Aged Out No longe r eligible based COMBINED SERIES on patient's age to complete this to [facility] documented as of this encounter Results Not on filedocumented in this encounter Insurance Payer Benefit Plan / Subscriber ID Effective Dates Phone Addre ss Type Group [facility] MEDICAID OF xxxxxxxxx 2019-Present [phone] [address] Medicaid [place] [id number] [place] [phone] documented as of this encounter Advance Directives Name Relationship Healthcare Agent Communication Relationship Bryant Styles Spouse Primary healthcare agent Kathleen Montero Mother [facility] [place] [phone] agent (Mobile)
--- OUTSIDE RECORDS SUMMARY | 2020-01-21 03:13 | XMS REPORT | Summary of Care ---
:1994 Author Organization [facility] Address [address] [place] [address] Care Team Providers Name Role Phone Pcp, Does Not Have A Primary Care Provider Reason for Visit Reason Comments URINARY TRACT INFECTION Encounter Details Date Type Department Care Team Description 12/06/2019 Telephone [facility] RMCHP- Hollie Arriaga, UR INARY TRACT [place] VACUUM CONDITIONER OPERATOR INFECTION 1108 [facility] [address] [place] [address] [place], [place] [phone] [address] [phone] Allergies Active Allergy Reactions Severity Noted Date [...] Packet 30 Each 6 12/01/2019 Ac tive 89-btmk-mwlcl-dha by mouth daily. (SELECT-OB + DHA) 29 [...] Date Type Specialty Care Team Description 12/08/2019 Global Logistics Manager Visit Maternal Medicine 12/29/2019 Routine Visit OB Satellites Hollie Arriaga, VACUUM CONDITIONER OPERATOR [address] [place] [address] [phone] Health Maintenance Due Date Last Done Comments HPV VACCINES (1 - Female 2005 2-dose series) INFLUENZA VACCINE (#1) 2020 06/30/2018, 03/19/2018, 08/08/2015 Depression Screening 11/30/2020 12/01/2019, 12/01/2019 PAP SMEAR 11/30/2022 12/01/2019, 10/13/2017 DTaP,Tdap,and Td Vaccines (3 06/30/2028 06/30/2018, - Td) 12/14/2015 PNEUMOCOCCAL 0-64 YEARS Aged Out No longe r eligible based COMBINED SERIES on patient's age to complete this to [facility] documented as of this encounter Results Not on filedocumented in this encounter Visit Diagnoses Diagnosis Urinary tract infection without hematuri a, site unspecified - Primary documented in this encounter Insurance Payer Benefit Plan / Subscriber ID Effective Dates Phone Addre ss Type Group TMHP MEDICAID OF xxxxxxxxx 2019-Present [phone] [address] Medicaid [place] [id number] [place] [phone] documented as of this encounter Advance Directives Name Relationship Healthcare Agent Communication Relationship Bryant Styles Spouse Primary healthcare agent Kathleen Montero Mother agent (Mobile)
--- OUTSIDE RECORDS SUMMARY | 2020-01-21 03:13 | XMS REPORT | Summary of Care ---
:1994 Author Organization [facility] Address [address] [place] [address] Care Team Providers Name Role Phone Pcp, Does Not Have A Primary Care Provider Reason for Visit Reason Comments URINARY TRACT INFECTION Encounter Details Date Type Department Care Team Description 12/06/2019 Telephone [facility] RMCHP- Hollie Arriaga, UR INARY TRACT [place] HAT FINISHING MATERIALS PREPARER INFECTION 1108 [facility] [address] [place] [address] [place], [place] [phone] [address] [phone] Allergies Active Allergy Reactions Severity Noted Date [...] Packet 30 Each 6 12/01/2019 Ac tive 48-qxfp-zoxyn-dha by mouth daily. (SELECT-OB + DHA) 29 [...] Date Type Specialty Care Team Description 12/08/2019 Rock Worker Visit Maternal Medicine 12/29/2019 Routine Visit OB Satellites Hollie Arriaga, HAT FINISHING MATERIALS PREPARER [address] [place] [address] [phone] Health Maintenance Due Date Last Done Comments HPV VACCINES (1 - Female 2005 2-dose series) INFLUENZA VACCINE (#1) 2020 06/30/2018, 03/19/2018, 08/08/2015 Depression Screening 11/30/2020 12/01/2019, 12/01/2019 PAP SMEAR 11/30/2022 12/01/2019, 10/13/2017 DTaP,Tdap,and Td Vaccines (3 06/30/2028 06/30/2018, - Td) 12/14/2015 PNEUMOCOCCAL 0-64 YEARS Aged Out No longe r eligible based COMBINED SERIES on patient's age to complete this to [facility] documented as of this encounter Results Not on filedocumented in this encounter Visit Diagnoses Diagnosis Urinary tract infection without hematuri a, site unspecified - Primary documented in this encounter Insurance Payer Benefit Plan / Subscriber ID Effective Dates Phone Addre ss Type Group TMHP MEDICAID OF xxxxxxxxx 2019-Present [phone] [address] Medicaid [place] [id number] [place] [phone] documented as of this encounter Advance Directives Name Relationship Healthcare Agent Communication Relationship Bryant Styles Spouse Primary healthcare agent Kathleen Montero Mother [facility] agent (Mobile)
--- OUTSIDE RECORDS SUMMARY | 2020-01-21 03:13 | XMS REPORT | Summary of Care ---
:1994 Author Organization [facility] Address [address] [place] [address] Care Team Providers Name Role Phone Pcp, Does Not Have A Primary Care Provider Reason for Visit Reason Comments ULTRASOUND (Routine) Status Reason Specialty Diagnoses / Referred By Referred To Procedures Contact Contact Closed Maternal Diagnoses Supervision of high risk , antepartum Hollie Arriaga Medicine Procedures CONSULT MATERNAL MEDICINE ULTRASOUND Preferred Location: [facility] [address] [place] [address] Encounter Details Date Type Department Care Team Description 12/08/2019 [facility] Ute rine size-date Ultrasound- Mei VALENTE discrepancy in first 1108 [facility] [address] trimester [place], [place] [address] [place], [place] [phone] [address] Allergies Active Allergy Reactions Severity Noted Date Comments Metoclopramide Hcl Anxiety 03/15/2018 documented as of this encounter (statuses as of 12/08/2019) Medications Medication Sig Dispensed Refills Start Date [...] Packet 30 Each 6 12/01/2019 Ac tive 39-czhq-vailu-dha by mouth daily. (SELECT-OB + DHA) 29 mg iron-1 mg -250 mg combo packIndications: Supervision of high risk , antepartum Nitrofurantoin&Nit. Take 1 capsule 20 capsule 0 12/06/2019 Active Macrocryst (MACROBID) by mouth 2 100 mg (two) times capsuleIndications: daily for 10 Urinary tract days. infection without hematuria, site unspecified documented as of this encounter (statuses as of 12/08/2019) Active Problems Problem Noted Date History of [...] as of this encounter (statuses as of 12/08/2019) Resolved Problems Problem Noted Date Resolved Date [...] as of this encounter (statuses as of 12/08/2019) Immunizations Name Administration Dates Next Due Influenza [...] Routine Visit OB Satellites Maria G Arriaga, SCANNING COORDINATOR [address] [place] [address] [phone] Health Maintenance Due Date Last Done Comments HPV VACCINES (1 - Female 2005 2-dose series) INFLUENZA VACCINE (#1) 2020 06/30/2018, 03/19/2018, 08/08/2015 Depression Screening 11/30/2020 12/01/2019, 12/01/2019 PAP SMEAR 11/30/2022 12/01/2019, 10/13/2017 DTaP,Tdap,and Td Vaccines (3 06/30/2028 06/30/2018, - Td) 12/14/2015 PNEUMOCOCCAL 0-64 YEARS Aged Out No longe r eligible based COMBINED SERIES on patient's age to complete this to [facility] documented as of this encounter Results Not on filedocumented in this encounter Visit Diagnoses Diagnosis Uterine size-date discrepancy in first t rimester Uterine size date discrepancy, antepartu m condition or complication documented in this encounter Insurance Payer Benefit Plan / Subscriber ID Effective Dates Phone Addre ss Type Group [facility] MEDICAID OF xxxxxxxxx 2019-Present [phone] [address] Medicaid [place] [id number] [place] [phone] documented as of this encounter Advance Directives Name Relationship Healthcare Agent Communication Relationship Bryant Styles Spouse Primary healthcare agent Kathleen Montero Mother [facility] agent (Mobile)
--- OUTSIDE RECORDS SUMMARY | 2020-01-21 03:14 | XMS REPORT | Summary of Care ---
:1995 Author Organization [facility] Address [address] [place] [address] Care Team Providers Name Role Phone Pcp, Does Not Have A Primary Care Provider Encounter Details Date Type Department Care Team Description 12/08/2019 Abstract [facility]- A Hollie Lemus, OFFICE SPEC [address] [facility] [address] [place] [address]1 955 [place] [address] [phone] Allergies Active Allergy Reactions Severity Noted Date [...] Packet 30 Each 6 12/01/2019 Ac tive 37-ivrh-fpihv-dha by mouth daily. (SELECT-OB + DHA) 29 mg iron-1 mg -250 mg combo packIndications: Supervision of high risk , antepartum Nitrofurantoin&Nit. Take 1 capsule 20 capsule 0 12/06/2019 Active Macrocryst (MACROBID) by mouth 2 100 mg (two) times capsuleIndications: daily for 10 Urinary tract days. infection without hematuria, site unspecified proMETHazine 25 mg Take 1 tablet 30 tablet 1 12/08/2019 Active tabletIndications: by mouth every Nausea and vomiting 4 (four) hours during prior as needed for to 22 weeks gestation Nausea and Vomiting (N/V). documented as of [...] Routine Visit [facility] Maria G Arriaga, OFFICE SPEC [address] [place] [address] 15 [phone] Health Maintenance Due Date Last Done Comments HPV VACCINES (1 - Female 2005 2-dose series) INFLUENZA VACCINE (#1) 2020 06/30/2018, 03/19/2018, 08/08/2015 Depression Screening 11/30/2020 12/01/2019, 12/01/2019 PAP SMEAR 11/30/2022 12/01/2019, 10/13/2017 DTaP,Tdap,and Td Vaccines (3 06/30/2028 06/30/2018, - Td) 12/14/2015 PNEUMOCOCCAL 0-64 YEARS Aged Out No longe r eligible based COMBINED SERIES on patient's age to complete this to [facility] documented as of this encounter Results Not on filedocumented in this encounter Insurance Payer Benefit Plan / Subscriber ID Effective Dates Phone Addre ss Type Group [employer] MEDICAID OF xxxxxxxxx 2019-Present [phone] [address] Medicaid [place] [id number] [place] [phone] documented as of this encounter Advance Directives Name Relationship Healthcare Agent Communication Relationship Bryant Estradana Spouse Primary healthcare agent Kathleen Montero Mother [facility] agent (Mobile)
--- OUTSIDE RECORDS SUMMARY | 2020-01-21 03:14 | XMS REPORT | Summary of Care ---
:1995 Author Organization [facility] Address [address] [place] [address] Care Team Providers Name Role Phone Pcp, Does Not Have A Primary Care Provider Reason for Visit Reason Comments Talk To Nurse Encounter Details Date Type Department Care Team Description 12/08/2019 Telephone [facility] CARLA- Ravindra Arriaga R, HOT BOX OPERATOR Talk To Nurse [place] [address] [facility] [address] [facility] [place] [address] [place] [address] Allergies Active Allergy Reactions Severity Noted Date [...] Packet 30 Each 6 12/01/2019 Ac tive 02-sntg-owfph-dha by mouth daily. (SELECT-OB + DHA) 29 [...] Routine Visit [facility] Maria G Arriaga, HOT BOX OPERATOR [address] [place] [address] [phone] Health Maintenance Due Date Last Done Comments HPV VACCINES (1 - Female 2005 2-dose series) INFLUENZA VACCINE (#1) 2020 06/30/2018, 03/19/2018, 08/08/2015 Depression Screening 11/30/2020 12/01/2019, 12/01/2019 PAP SMEAR 11/30/2022 12/01/2019, 10/13/2017 DTaP,Tdap,and Td Vaccines (3 06/30/2028 06/30/2018, - Td) 12/14/2015 PNEUMOCOCCAL 0-64 YEARS Aged Out No longe r eligible based COMBINED SERIES on patient's age to complete this to [facility] documented as of this encounter Results Not on filedocumented in this encounter Visit Diagnoses Diagnosis Nausea and vomiting during [place] or to 22 weeks gestation - Primary documented in this encounter Insurance Payer Benefit Plan / Subscriber ID Effective Dates Phone Addre ss Type Group [employer] MEDICAID OF xxxxxxxxx 2019-Present [phone] [address] Medicaid [place] [id number] [place] [phone] documented as of this encounter Advance Directives Name Relationship Healthcare Agent Communication Relationship Bryant Estradana Spouse Primary healthcare agent Kathleen Montero [place] [phone] agent (Mobile)
--- OUTSIDE RECORDS SUMMARY | 2020-01-21 03:14 | XMS REPORT | Summary of Care ---
:1995 Author Organization [facility] Address [address] [place] [address] Care Team Providers Name Role Phone Pcp, Does Not Have A Primary Care Provider Reason for Visit Reason Comments Talk To Nurse Encounter Details Date Type Department Care Team Description 12/08/2019 Telephone [facility] CARLA- Ravindra Arriaga R, MEDICAL RESEARCH TECH Talk To Nurse [place] [address] [facility] [address] [facility] [place] [address] [place] [address] 955 Allergies Active Allergy Reactions Severity Noted [...] Packet 30 Each 6 12/01/2019 Ac tive 59-sssd-ljqba-dha by mouth daily. (SELECT-OB + DHA) 29 [...] Routine Visit [facility] Maria G Arriaga, MEDICAL RESEARCH TECH [address] [place] [address] [phone] Health Maintenance Due Date Last Done Comments HPV VACCINES (1 - Female 2005 2-dose series) INFLUENZA VACCINE (#1) 2020 06/30/2018, 03/19/2018, 08/08/2015 Depression Screening 11/30/2020 12/01/2019, 12/01/2019 PAP SMEAR 11/30/2022 12/01/2019, 10/13/2017 DTaP,Tdap,and Td Vaccines (3 06/30/2028 06/30/2018, - Td) 12/14/2015 PNEUMOCOCCAL 0-64 YEARS Aged Out No longe r eligible based COMBINED SERIES on patient's age to complete this to [facility] documented as of this encounter Results Not on filedocumented in this encounter Visit Diagnoses Diagnosis Nausea and vomiting during [place] or to 22 weeks gestation - Primary documented in this encounter Insurance Payer Benefit Plan / Subscriber ID Effective Dates Phone Addre ss Type Group [employer] MEDICAID OF xxxxxxxxx 2019-Present [phone] [address] Medicaid [place] [id number] [place] [phone] documented as of this encounter Advance Directives Name Relationship Healthcare Agent Communication Relationship Bryant Estradana Spouse Primary healthcare agent Kathleen Montero Mother [place] [phone] agent (Mobile)
--- OUTSIDE RECORDS SUMMARY | 2020-01-21 03:15 | XMS REPORT | Summary of Care ---
:1994 Author Organization [facility] Address [address] [place] [address] Care Team Providers Name Role Phone Pcp, Does Not Have A Primary Care Provider Reason for Referral (Routine) Status Reason Specialty Diagnoses / Referred By Referred To Procedures Contact Contact New Request Maternal Diagnoses Supervision of high risk , antepartum Hollie Arriaga Medicine Procedures CONSULT MATERNAL MEDICINE ULTRASOUND Preferred Location: [facility] [address] [place] [address] Reason for Visit Reason Comments ROUTINE VISIT Encounter Details Date Type Department Care Team Description 01/20/2020 Routine [facility]- Hollie Arriaga upervision of high risk , antepartum (Primary Dx); Visit [facility] Multiparity; [address] [place] [address] [facility] History o f herpes simplex type 2 infection; [address] [place] Nausea and vomiting during [place] or to 22 weeks gestation; [place], [place] Urinary tract i nfection without hematuria, site unspecified; [id number] Tobacco abuse; [phone] Class 1 obesity with body mass index (BM I) of 31.0 to 31.9 in adult, unspecified obesity type, unspecified whether serious comorbidity present Allergies Active Allergy Reactions Severity Noted Date Comments Metoclopramide Hcl Anxiety 03/15/2018 documented as of this encounter (statuses as of 01/20/2020) Medications Medication Sig Dispensed Refills Start Date [...] Packet by 30 Each 6 12/01/2019 Active 83-ackz-uogou-dha mouth daily. (SELECT-OB + DHA) 29 mg iron-1 mg -250 mg combo packIndications: Supervision of high risk , antepartum proMETHazine 25 mg Take 1 tablet by 30 tablet 1 12/08/2019 Active tabletIndications: mouth every 4 Nausea and vomiting (four) hours as during prior needed for Nausea to 22 weeks gestation and Vomiting (N/V). doxylamine-pyridoxine, Take 2 tablets by 90 tablet 3 0 Active vit B6, (DICLEGIS) mouth at bedtime. 10-10 mg per tabletIndications: Nausea and vomiting during prior to 22 weeks gestation documented as of this encounter (statuses as of 01/20/2020) Active Problems Problem Noted Date History of [...] 016 Estimated Date of Delivery Comments Yes 07/11/2020 Based on Ultrasound, FHT: 169, Transverse presentation, Placen ta too early to evaulate. documented as of this encounter (statuses as of 01/20/2020) Resolved Problems Problem Noted Date Resolved Date [...] as of this encounter (statuses as of 01/20/2020) Immunizations Name Administration Dates Next Due Influenza [...] 0.0 Estimated Date of Delivery Comments Yes 07/11/2020 Based on Ultrasound, FHT: 169, Transverse presentation, Placen ta too early to evaulate. Sex Assigned at Date Recorded Not on file COVID-19 Exposure Response Date Recorded In the last month, have you been in contact with No / Unsure 01/20/2020 2:50 PM CDT someone who was confirmed or suspected to have Coronavirus / COVID-19? documented as of this encounter Last Filed Vital Signs Vital Sign Reading Time Taken Comments Blood Pressure 110/71 01/20/2020 2:50 PM CDT Pulse 79 01/20/2020 2:50 PM CDT Temperature 36.6 C (97.9 F) 01/20/2020 2:50 PM CDT Respiratory Rate 16 01/20/2020 2:50 PM CDT Oxygen Saturation - - Inhaled Oxygen Concentration - - Weight 81.9 kg (180 lb 9.6 oz) 01/20/2020 2:50 PM CDT Height 165.1 cm (5' 5") 01/20/2020 2:50 PM CDT Body Mass Index 30.05 01/20/2020 2:50 PM CDT documented in this encounter Progress Notes Hollie Arriaga, CARTER - 01/20/2020 2:30 PM CDT Chief complaint: Chief Complaint Patient presents with ROUTINE VISIT HPI CC: Follow Up Visit Apolonia Montero is a 24 year old, , /White female. Patient's last menstrual period was 09/20/2019 (approximate). She is 15w2d with an intrauterine . Her estimated date of delivery is 07/11/2020, by Ultrasound. She has no complaints today. She reports denies FM, contractions, LOF and bleeding today. Patient denies current or past physical, sexual or emotional abuse. Histories OB History Para Term AB Living [...] Specified) Sis (Not Specified) NoFHx (Not Specified) No past surgical history on file. Social History Socioeconomic History Marital status: Single Spouse name: Not on file Number of children: Not on file Years of education: Not on file Highest education level: Not on file Occupational History Not on file Social Needs Financial resource strain: Not on file Food insecurity Worry: Not on file Inability: Not on file Transportation needs Medical: Not on file Non-medical: Not on file Tobacco Use Smoking status: Former Smoker Smokeless tobacco: Never Used Tobacco comment: quit 11/01/2019 was smoking 1 pack per day Substance and Sexual Activity Alcohol use: No Alcohol/week: 0.0 standard drinks Drug use: Yes Types: Marijuana Comment: 02/11/2018 Sexual activity: Yes Partners: Male Comment: Last sexual intercourse 11/30/2019 Lifestyle Physical activity Days per week: Not on file Minutes per session: Not on file Stress: Not on file Relationships Social connections Talks on phone: Not on file Gets together: Not on file Attends caodaism service: Not on file Active member of club or organization: Not on file Attends meetings of clubs or organizations: Not on file Relationship status: Not on file Intimate partner violence Fear of current or ex partner: Not [...] Partners: Male Comment: Last sexual intercourse 11/30/2019 Labs Labs are pending. Radiology Radiology pending. Allergies Apolonia is allergic to reglan [metoclopramide hcl]. Medications Apolonia has a current medication list which includes the following prescription(s): doxylamine-pyridoxine (vit b6), promethazine, vit 80-lexi-ueabo-dha, ondansetron, and promethazine. Review of Systems Eyes: Negative for visual disturbance. Cardiovascular: Negative for leg swelling. Gastrointestinal: Positive for nausea and vomiting. Negative for abdominal pain. Genitourinary: Negative for vaginal bleeding, vaginal discharge and pelvic pain. Neurological: Negative for headaches. BP 110/71 (BP Location: Right arm, Patient Position: Sitting, BP CUFF SIZE: Adult Medium) | Pulse 79 | Temp 36.6 C (97.9 F) (Oral) | Resp 16 | Ht 5' 5" (1.651 m) | Wt 180 lb 9.6 oz (81.9 kg) | LMP 09/20/2019 (Approximate) | BMI 30.05 kg/m Pregravid BMI: 33.28 Physical Exam PHYSICAL: General Exam: Neurological: Normal Abdomen: Normal Extremities: Normal Pelvic Exam: Uterus: 14cm Weeks Assessment/Plan Supervision of high risk , antepartum (primary encounter diagnosis) Multiparity Supervision of high risk , antepartum (primary encounter diagnosis) Comment: Routine Visit Plan: POCT URINALYSIS W SPECIFIC GRAVITY, CONSULT MATERNAL MEDICINE ULTRASOUND Preferred Location: [place], QUAD SCRN, QUAD SCRN Denies zika virus risk, signs and symptoms such as fever,rash,joint pain, conjunctivitis (redeyes), muscle pain, headaches; outside [place] travel to areas affected by zika, and FOB exposure to zika. Educated on use of mosquito repellent. Covid x12 screening done, screening results are negative. Nausea and vomiting during prior to 22 weeks gestation Comment: patient use phenergan but is not helping, 10lb weight loss Plan: doxylamine-pyridoxine, vit B6, (DICLEGIS) 10-10 mg per tablet Urinary tract infection without hematuria, site unspecified Comment: treated on 12/06/2019 Plan: URINE CULTURE Tobacco abuse Comment: current smoker Plan: smoking cessation discussed Class 1 obesity with body mass index (BMI) of 31.0 to 31.9 in adult, unspecified obesity type, unspecified whether serious comorbidity present Comment: BMI: 30.05 Plan: Patient encouraged to limit weight gain [...] 50% of the visit time. [place] 01/20/2020 3:48 PM documented in this encounter Plan of Treatment Date Type Specialty Care Team Description 01/24/2020 Supervisor Display Fabrication Visit [facility] 02/17/2020 Routine Visit [facility] Hollie Arriaga FNP [address] [place], [place] [address] [phone] 02/24/2020 Supervisor Display Fabrication Visit Maternal Medicine Name Type Priority Associated Diagnoses Date/Ti me URINE CULTURE LAB Routine Urinary tract infection wit hout 01/20/2020 3:29 PM CDT hematuria, site unspecified [facility]AD [facility] LAB Routine Supervision of high risk 3:35 PM CDT , antepartum Name Type Priority Associated Diagnoses Order S chedule QUAD SCRN LAB Routine Supervision of high risk Exp ected: 01/20/2020, , antepartum s: 01/19/2021 Health Maintenance Due Date Last Done Comments HPV VACCINES (1 - 2-dose 2005 series) INFLUENZA VACCINE (#1) 2020 06/30/2018, 03/19/2018, 08/08/2015 Depression Screening 11/30/2020 12/01/2019, 12/01/2019 PAP SMEAR 11/30/2022 12/01/2019, 10/13/2017 DTaP,Tdap,and Td Vaccines (3 06/30/2028 06/30/2018, - Td) 12/14/2015 PNEUMOCOCCAL 0-64 YEARS Aged Out No longe r eligible based COMBINED SERIES on patient's age to complete this to pic documented as of this encounter Procedures Procedure Name Priority Date/Time Associated Diagnosis Comme nts POCT URINALYSIS Routine 01/20/2020 Supervision of high risk Results for this , antepartum proced ure are in the results section . documented in this encounter Results POCT URINALYSIS W SPECIFIC GRAVITY (01/20/2020) Pathologist Sig nature POCT U SP GRAV . 1.005 - 1.025 mg/dl POCT PH U . 5 - 8 mg/dl POCT U LEUK EST . Negative - Negative POCT U NIT . Negative - Negative POCT U PROT 2+ Negative - Negative POCT U GLU normal Negative - Negative POCT U KETONE . Negative - Negative POCT U UROBILI . 0.2 - 1 mg/dl POCT U BILI . Negative - Negative POCT U BLD . Negative - Negative POCT U COLOR POCT U APPEAR Specimen Urine - URINE, CLEAN CATCH documented in this encounter Visit Diagnoses Diagnosis Supervision of high risk , ante - Primary Multiparity History of herpes simplex type 2 infecti on Personal history of other infectious and parasitic disease Nausea and vomiting during [place] or to 22 weeks gestation Urinary tract infection without hematuri a, site unspecified Tobacco abuse Tobacco use disorder Class 1 obesity with body mass index (BM I) of 31.0 to 31.9 in adult, unspecified obesity type, unspecified whether seriou s comorbidity present documented in this encounter Insurance Payer Benefit Plan / Subscriber ID Effective Phone Address T [facility] [id number] 2019-Prese [address] Medic aid HEALTH CHOICE - [place] [id number] [facility] MEDICAID [place], [place] MEDICAID [phone] documented as of this encounter Advance Directives Name Relationship Healthcare Agent Communication Relationship Bryant Styles Spouse Health Care Agent Kathleen Montero Mother [facility] Health Care Agent (Mobile)
[2020-01-21] MEDS ORDERED: ONDANSETRON 4 MG/2 ML VIAL ONE ×2 (03:57→05:48)
[2020-01-21] MEDS ORDERED: NA CHLORIDE 0.9% 1,000 ML ONE ×2 (03:57→07:45)
[2020-01-21 04:19] LABS: Absolute Lymphocytes (CBC) 0.7 K/uL (0.7-4.9); Basophils % 0.2 % (0-1.3); Hematocrit 37.3 % (36.0-45.0); Lymphocytes % 5.4 % (15.3-44.8); MPV 11.8 fL (7.6-11.3); RBC Red Blood Cell Count 4.26 M/uL (3.86-4.86)
[2020-01-21 04:56] LABS: Platelet Estimate ADEQ
[2020-01-21 05:00] LABS: Blood Morphology Comment NOT SEEN (NOT SEEN)
[2020-01-21 05:59] LABS: ALT/SGPT 12 U/L (12-78); AST/SGOT 8 U/L (15-37); Albumin 3.1 g/dL (3.4-5.0); Alkaline Phosphatase 60 U/L (45-117); BUN Blood Urea Nitrogen 5 mg/dL (7-18); Bicarbonate 22 mmol/L (21-32); Bilirubin Direct 0.1 mg/dL (0-0.2); Bilirubin Total 0.4 mg/dL (0.2-1.0); Glucose Level 103 mg/dL (74-106); Potassium 3.5 mmol/L (3.5-5.1); Sodium Level 142 mmol/L (136-145)
[2020-01-21] MEDS ORDERED: D5 0.9 NS 1,000 ML IV ONE (06:23)
[2020-01-21] MEDS ORDERED: METOCLOPRAMIDE 10 MG/2mL INJ ONE (06:23)
[2020-01-21] MEDS ORDERED: FAMOTIDINE 20 MG/2 ML VIAL IV ONE (06:24)
[2020-01-21 06:30] LABS: Urine Blood TRACE (NEG); Urine Glucose NEGATIVE (NEG); Urine Protein 1+ (NEG); Urine Specific Gravity >1.030 (1.005-1.030); Urine pH 6.5 (5.0-7.0)
[2020-01-21] MEDS ORDERED: CEFTRIAXONE/SWI 1gm 1 GM/10 ML SYR ONE (07:29)
--- NOTE | 2020-01-21 08:34 | ER ---
Nurse's Notes [facility] Name: Apolonia Montero Age: 24 yrs Sex: Female : 1995 Arrival Date: 01/21/2020 Time: 03:09 Bed 7 Private MD: Diagnosis: Hyperemesis gravidarum with metabolic disturbance-not present; related conditions, unspecified, first trimester; related conditions, unspecified, second trimester;Urinary tract infection, site not specified Presentation: 01/20 03:22 Chief complaint: Patient states: Vomiting x 2 days without relief; Patient is about 3 lp1 months ; recently prescribed Diclegis, not working for he; denies any other symptoms. Coronavirus screen: Client denies travel out of the [place] in the last 14 days. At this time, the client does not indicate any symptoms associated with coronavirus-19. Ebola Screen: No symptoms or risks identified at this time. Initial Sepsis Screen: Does the patient meet any 2 criteria? No. Patient's initial sepsis screen is negative. Does the patient have a suspected source of infection? No. Patient's initial sepsis screen is negative. Risk Assessment: Do you want to hurt yourself or someone else? Patient reports no desire to harm self or others. Onset of symptoms was January 19, 2020. 03:22 Method Of Arrival: Ambulatory lp1 03:22 Acuity: APRYL 3 lp1 DYE TANK TENDER: 03:27 LMP 09/28/2019, Verified, EDC 07/04/2020, Gestational age from LMP: 16 weeks 3 lp1 days Historical: - Allergies: 03:26 No Known Allergies; lp1 - Home Meds: 03:26 Vitamin Oral tab 1 tab once daily [Active]; lp1 - PMHx: 03:26 Anxiety; lp1 - PSHx: 03:26 None; lp1 - Immunization history:: Adult Immunizations up to date. - Social history:: Smoking status: Patient denies any tobacco usage or history of. Screenin:27 Abuse screen: Denies threats or abuse. Denies injuries from another. Nutritional lp1 screening: No deficits noted. Tuberculosis screening: No symptoms or risk factors identified. Fall Risk None identified. Assessment: 03:26 General: Appears in no apparent distress. Behavior is appropriate for age. Pain: Denies lp1 pain. Neuro: No deficits noted. Cardiovascular: Patient's skin is warm and dry. Respiratory: Respiratory effort is even, unlabored. GI: Pt is actively vomiting bile, Reports nausea, vomiting, since 2 days ago. : No signs and/or symptoms were reported regarding the genitourinary system. EENT: No signs and/or symptoms were reported regarding the EENT system. Derm: Skin is pink, warm \\T\\ dry. Musculoskeletal: No deficits noted. 04:34 Reassessment: Patient appears in no apparent distress at this time. Patient and/or lp1 family updated on plan of care and expected duration. Pain level reassessed. Patient states some relief; "I still feel a little bit of uneasiness". 05:00 Reassessment: Patient appears in no apparent distress at this time. Patient states lp1 continued nausea; provider notified. 06:00 Reassessment: Patient appears in no apparent distress at this time. Patient vomiting at lp1 this time, small amount of emesis noted; Provider notified. 06:28 Reassessment: pt states she is feeling very anxious she doesn't like the way reglan is bb making her feel reassured pt symptoms would pass, pt states she will try and get some sleep IV site intact, patent with fluids infusing. 07:30 Reassessment: Patient appears in no apparent distress at this time. Patient and/or ph family updated on plan of care and expected duration. Pain level reassessed. Pt asleep w/ equal and unlabored respirations. 07:47 Reassessment: Patient appears in no apparent distress at this time. Patient and/or ph family updated on plan of care and expected duration. Pain level reassessed. Patient is alert, oriented x 3, equal unlabored respirations, skin warm/dry/pink. Pt reports that nausea has improved, states, " My stomach still feels a little uneasy but it's much better." Pt provided w/ water per request, tolerating well at this time, VSS, will continue to monitor. 10:00 Reassessment: Patient is alert, oriented x 3, equal unlabored respirations, skin aa5 warm/dry/pink. Patient states feeling better. Pt drank cup of water, tolerated well. . Vital Signs: 03:22 BP 119 / 73; Pulse 100; Resp 16; Temp 98.7(O); Pulse Ox 98% on R/A; Weight 81.65 kg lp1 (R); Height 5 ft. 5 in. (165.10 cm); Pain 0/10; 04:00 BP 131 / 84; Pulse 100; Resp 18; Pulse Ox 98% on R/A; lp1 06:30 BP 116 / 66; Pulse 95; Resp 16; Pulse Ox 97% on R/A; lp1 07:30 BP 97 / 61; Pulse 86; Resp 18; Pulse Ox 100% on R/A; ph 10:00 BP 117 / 78; Pulse 86; Resp 16 S; Pulse Ox 100% on R/A; aa5 03:22 Body Mass Index 29.95 (81.65 kg, 165.10 cm) lp1 ED Course: 03:09 Patient arrived in ED. bp1 03:17 Jeffrey Evangelista MD is Attending Physician. mh7 03:20 Neena Perez, RN is Primary Nurse. lp1 03:24 Triage completed. lp1 03:24 Arm band placed on. lp1 03:27 Patient has correct armband on for positive identification. lp1 03:50 Inserted saline lock: 22 gauge in right antecubital area, using aseptic technique. lp1 Blood collected. 04:02 No provider procedures requiring assistance completed. lp1 07:28 Attending Physician role handed off by Jeffrey Evangelista MD lawrence 07:28 Pernell Meza MD is Attending Physician. lawrence 08:33 Van Judge MD is Referral Physician. lawrence 10:00 IV discontinued, intact, bleeding controlled, No redness/swelling at site. Pressure aa5 dressing applied. Administered Medications: 03:50 Drug: NS 0.9% 1000 ml Route: IV; Rate: 1000 ml; Site: right antecubital; lp1 05:30 Follow up: IV Status: Completed infusion; IV Intake: 1000ml lp1 03:50 Drug: Zofran (Ondansetron) 4 mg Route: IVP; Site: right antecubital; lp1 04:45 Follow up: Response: Nausea is decreased lp1 05:49 Drug: Zofran (Ondansetron) 4 mg {Note: Verbal order per Provider.} Route: IVP; Site: lp1 right antecubital; 06:29 Follow up: Response: No change in condition lp1 06:15 Drug: D5-NS 1000 ml Route: IV; Rate: per protocol; Site: right antecubital; lp1 07:46 Follow up: Response: No adverse reaction; IV Status: Completed infusion; IV Intake: ph 1000ml 06:15 Drug: Reglan 10 mg Route: IVP; Site: right antecubital; lp1 07:16 Follow up: Response: No adverse reaction ph 06:15 Drug: Pepcid 20 mg Route: IVP; Site: right antecubital; lp1 07:16 Follow up: Response: No adverse reaction ph 07:46 Drug: Rocephin - (cefTRIAXone) 1 grams Route: IVPB; Infused Over: 30 mins; Site: right ph antecubital; 07:46 Drug: NS 0.9% 1000 ml Route: IV; Rate: 1 bolus; Site: right antecubital; ph 10:00 Follow up: IV Status: Completed infusion; IV Intake: 1000ml aa5 10:00 Drug: Augmentin Chewable Tablet 800 mg Route: PO; aa5 10:00 Follow up: Response: Medication administered at discharge. aa5 Intake: 05:30 IV: 1000ml; Total: 1000ml. lp1 07:46 IV: 1000ml; Total: 2000ml. ph 10:00 IV: 1000ml; Total: 3000ml. aa5 Outcome: 08:34 Discharge ordered by . lawrence 10:10 Discharged to home ambulatory. aa5 10:10 Condition: improved 10:10 Discharge instructions given to patient, Instructed on discharge instructions, follow up and referral plans. medication usage, Demonstrated understanding of instructions, follow-up care, medications, Prescriptions given X 5 10:15 Patient left the ED. aa5 Addendum: 01/24/2020 07:54 Addendum: Culture Results: Positive wound culture. No further action required. Bacteria h b sensitive to prescribed antibiotic. Signatures: Pernell Meza MD MD cha Ballard, Brenda, RN RN Shayy Burt RN RN aa5 Neena Perez RN RN lp1 Violet Angulo RN RN Beatriz Trujillo RN RN Arminda Bullard Maurice, MD MD mh7 Corrections: (The following items were deleted from the chart) 01/20 10:16 08:50 Augmentin Chewable Tablet 800 mg PO aa5 aa5 10:16 10:15 Response: Medication administered at discharge. aa5 aa5 10:19 10:18 Patient left the ED. aa5 aa5
--- NOTE | 2020-01-21 08:34 | EDPHYS ---
Physician Documentation [facility] Name: Apolonia Montero Age: 24 yrs Sex: Female : 1995 Arrival Date: 01/21/2020 Time: 03:09 Bed 7 Private MD: ED Physician Pernell Meza HPI: 01/20 03:55 This 24 yrs old Female presents to ER via Ambulatory with complaints of mh7 Dehydrated. 03:55 The patient presents to the emergency department with nausea, that is moderate, mh7 vomiting. Onset: The symptoms/episode began/occurred 2 day(s) ago. Possible causes: . The symptoms are aggravated by food , The symptoms are alleviated by nothing. Associated signs and symptoms: Pertinent negatives: abdominal pain, anorexia, belching, constipation, diarrhea, dysuria, fever, flatulence, GI bleeding, hematuria, vaginal discharge. Severity of symptoms: At their worst the symptoms were moderate yesterday, in the emergency department the symptoms have improved moderately. The patient has experienced similar episodes in the past, a few times. Patient is 15 weeks , [id number], with nausea and vomiting for 2 days. She has had similar issues during in the past. She was taking Phenergan without relief. Her doctor prescribed Diclegis but she has not gotten prescription filled yet. She has had relief in th past with Zofran, She denies any abdominal pain, fever, diarrhea, vaginal bleeding, or dysuria.. 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 - Social history:: Smoking status: Patient denies any tobacco usage or history of. ROS: 04:22 Constitutional: Negative for fever, chills, and weight loss, Eyes: Negative for injury, mh7 pain, redness, and discharge, ENT: Negative for injury, pain, and discharge, Neck: Negative for injury, pain, and swelling, Cardiovascular: Negative for chest pain, palpitations, and edema, Respiratory: Negative for shortness of breath, cough, wheezing, and pleuritic chest pain, Back: Negative for injury and pain, : Negative for injury, bleeding, discharge, and swelling, MS/Extremity: Negative for injury and deformity, Skin: Negative for injury, rash, and discoloration, Neuro: Negative for headache, weakness, numbness, tingling, and seizure, Psych: Negative for depression, anxiety, suicide ideation, homicidal ideation, and hallucinations, Allergy/Immunology: Negative for hives, rash, and allergies, Endocrine: Negative for neck swelling, polydipsia, polyuria, polyphagia, and marked weight changes, Hematologic/Lymphatic: Negative for swollen nodes, abnormal bleeding, and unusual bruising. Exam: 04:22 Constitutional: This is a well developed, well nourished patient who is awake, alert, mh7 and in no acute distress. Head/Face: Normocephalic, atraumatic. Eyes: Pupils equal round and reactive to light, extra-ocular motions intact. Lids and lashes normal. Conjunctiva and sclera are non-icteric and not injected. Cornea within normal limits. Periorbital areas with no swelling, redness, or edema. ENT: Nares patent. No nasal discharge, no septal abnormalities noted. Tympanic membranes are normal and external auditory canals are clear. Oropharynx with no redness, swelling, or masses, exudates, or evidence of obstruction, uvula midline. Mucous membranes moist. Neck: Trachea midline, no thyromegaly or masses palpated, and no cervical lymphadenopathy. Supple, full range of motion without nuchal rigidity, or vertebral point tenderness. No Meningismus. Chest/axilla: Normal chest wall appearance and motion. Nontender with no deformity. No lesions are appreciated. Cardiovascular: Regular rate and rhythm with a normal S1 and S2. No gallops, murmurs, or rubs. Normal PMI, no JVD. No pulse deficits. Respiratory: Lungs have equal breath sounds bilaterally, clear to auscultation and percussion. No rales, rhonchi or wheezes noted. No increased work of breathing, no retractions or nasal flaring. 04:22 Abdomen/GI: Soft, non-tender, with normal bowel sounds. No distension or tympany. No guarding or rebound. No evidence of tenderness throughout. Back: No spinal tenderness. No costovertebral tenderness. Full range of motion. 04:22 Skin: Warm, dry with normal turgor. Normal color with no rashes, no lesions, and no evidence of cellulitis. MS/ Extremity: Pulses equal, no cyanosis. Neurovascular intact. Full, normal range of motion. Neuro: Awake and alert, GCS 15, oriented to person, place, time, and situation. Cranial nerves II-XII grossly intact. Motor strength 5/5 in all extremities. Sensory grossly intact. Cerebellar exam normal. Normal gait. Psych: Awake, alert, with orientation to person, place and time. Behavior, mood, and affect are within normal limits. 04:22 Abdomen/GI: 04:22 : CVA tenderness, is absent, Pelvic Exam: The exam is refused by the patient/guardian. The risks and consequences are understood by the patient, Gravid exam: Fundal height: consistent with gestational age, Bladder: is normal. Vital Signs: 03:22 BP 119 / 73; Pulse 100; Resp 16; Temp 98.7(O); Pulse Ox 98% on R/A; Weight 81.65 kg lp1 (R); Height 5 ft. 5 in. (165.10 cm); Pain 0/10; 04:00 BP 131 / 84; Pulse 100; Resp 18; Pulse Ox 98% on R/A; lp1 06:30 BP 116 / 66; Pulse 95; Resp 16; Pulse Ox 97% on R/A; lp1 07:30 BP 97 / 61; Pulse 86; Resp 18; Pulse Ox 100% on R/A; ph 10:00 BP 117 / 78; Pulse 86; Resp 16 S; Pulse Ox 100% on R/A; aa5 03:22 Body Mass Index 29.95 (81.65 kg, 165.10 cm) lp1 MDM: 03:27 Patient medically screened. [facility] 07:29 Data reviewed: vital signs, nurses notes, lab test result(s). lawrence 08:24 Differential diagnosis: hyperemesis gravidarium. Data interpreted: supervisory it specialist: not lawrence applicable for this patient encounter. Pulse oximetry: on room air is 100 %. Counseling: I had a detailed discussion with the patient and/or guardian regarding: the historical points, exam findings, and any diagnostic results supporting the discharge/admit diagnosis, lab results, the need for outpatient follow up, for definitive care, an OB/Gyne specialist. Medication response: reglan. ED course: much improved, foloow up explained, zofra, phenergan as needed to back up diclegis.. 01/20 03:29 Order name: CBC with Diff; Complete Time: 05:02 7 01/20 03:29 Order name: Basic Metabolic Panel; Complete Time: 06:06 7 01/20 03:29 Order name: LFT's; Complete Time: 06:06 [facility] 01/20 04:34 Order name: Manual Differential; Complete Time: 05:02 EDMS 01/20 05:08 Order name: Lipase; Complete Time: 06:06 [facility] 01/20 06:27 Order name: Urine --Ancillary (enter results); Complete Time: 06:39 tt3 01/20 06:28 Order name: Urine Culture [facility] 01/20 06:28 Order name: Urine Dipstick--Ancillary (enter results); Complete Time: 06:39 tt3 01/20 03:29 Order name: Urine Dipstick-Ancillary (obtain specimen); Complete Time: 06:29 7 01/20 08:23 Order name: PO challenge; Complete Time: 10:01 lawrence Administered Medications: 03:50 Drug: NS 0.9% 1000 ml Route: IV; Rate: 1000 ml; Site: right antecubital; lp1 05:30 Follow up: IV Status: Completed infusion; IV Intake: 1000ml lp1 03:50 Drug: Zofran (Ondansetron) 4 mg Route: IVP; Site: right antecubital; lp1 04:45 Follow up: Response: Nausea is decreased lp1 05:49 Drug: Zofran (Ondansetron) 4 mg {Note: Verbal order per Provider.} Route: IVP; Site: lp1 right antecubital; 06:29 Follow up: Response: No change in condition lp1 06:15 Drug: D5-NS 1000 ml Route: IV; Rate: per protocol; Site: right antecubital; lp1 07:46 Follow up: Response: No adverse reaction; IV Status: Completed infusion; IV Intake: ph 1000ml 06:15 Drug: Reglan 10 mg Route: IVP; Site: right antecubital; lp1 07:16 Follow up: Response: No adverse reaction ph 06:15 Drug: Pepcid 20 mg Route: IVP; Site: right antecubital; lp1 07:16 Follow up: Response: No adverse reaction ph 07:46 Drug: Rocephin - (cefTRIAXone) 1 grams Route: IVPB; Infused Over: 30 mins; Site: right ph antecubital; 07:46 Drug: NS 0.9% 1000 ml Route: IV; Rate: 1 bolus; Site: right antecubital; ph 10:00 Follow up: IV Status: Completed infusion; IV Intake: 1000ml aa5 10:00 Drug: Augmentin Chewable Tablet 800 mg Route: PO; aa5 10:00 Follow up: Response: Medication administered at discharge. aa5 Disposition: 01/21/20 08:34 Discharged to Home. Impression: Hyperemesis gravidarum with metabolic disturbance - not present, related conditions, unspecified, first trimester, related conditions, unspecified, second trimester, Urinary tract infection, site not specified. - Condition is Stable. - Discharge Instructions: Hyperemesis Gravidarum, Morning Sickness, [id number], Urinary Tract Infection, Adult, Morning Sickness, First Trimester of , [id number], Urinary Tract Infection, Adult, [id number], First Trimester of , Pelvic Rest. - Prescriptions for Diclegis 10- 10 mg Oral tablet,delayed release (DR/EC) - take 1 tablet by ORAL route 3 times per day and 2 tablets at bedtime; 60 tablet. Vitamin 27- 0.8 mg Oral Tablet - take 1 tablet by ORAL route once daily; 30 tablet. Zofran 4 mg Oral Tablet - take 1 tablet by ORAL route every 12 hours As needed; 20 tablet. Phenergan 25 mg Rectal Suppository - insert 1 suppository by RECTAL route every 6 hours As needed; 12 suppository. Augmentin 500- 125 mg Oral Tablet - take 1 tablet by ORAL route every 12 hours for 7 days; 14 tablet. - Medication Reconciliation Form, Thank You Letter, Antibiotic Education, Prescription Opioid Use form. - Follow up: Private Physician; When: 2 - 3 days; Reason: Recheck today's complaints, Continuance of care, Re-evaluation by your physician. Follow up: Van Judge MD; When: 2 - 3 days; Reason: Recheck today's complaints, Re-evaluation by your physician. - Problem is new. - Symptoms have improved. Signatures: Dispatcher [employer] Pernell Meza MD MD cha Calderon, Audri, RN RN aa5 Neena Perez RN RN lp1 Violet Angulo RN RN Jeffrey Evangelista MD MD mh7 Corrections: (The following items were deleted from the chart) 10:01 08:06 FHT's ordered. lawrence aa5 10:18 08:34 01/21/2020 08:34 Discharged to Home. Impression: Hyperemesis gravidarum with aa5 metabolic disturbance - not present; related conditions, unspecified, first trimester; related conditions, unspecified, second trimester; Urinary tract infection, site not specified. Condition is Stable. Forms are Medication Reconciliation Form, Thank You Letter, Antibiotic Education, Prescription Opioid Use. Follow up: Private Physician; When: 2 - 3 days; Reason: Recheck today's complaints, Continuance of care, Re-evaluation by your physician. Follow up: Van Judge; When: 2 - 3 days; Reason: Recheck today's complaints, Re-evaluation by your physician. Problem is new. Symptoms have improved. lawrence
[2020-01-21] MEDS ORDERED: AMOX TR/K CLAV 400MG CHEW TAB PO ONE (10:13)
[2020-01-21 10:25] VITALS: TEMP 98.7
[2020-01-21 10:28] VITALS: O2SAT 100
[2020-01-21 10:30] VITALS: BP 117/78
== END 2020-01-21 10:18 | disposition home or self-care (01) ==
LOC: ER 03:06
DX: O23.42 Unspecified infection of urinary tract in pregnancy, second trimester (principal); Z3A.16 16 weeks gestation of pregnancy
CPT/HCPCS: 96361; 87088; 85025; 87086; 80048; 36415; 81025; 80076; 87077; 87186; 81003; 83690; 96375; 96374; 99284; J2765; J0696; J7042; J7030 ×2; J2405 ×2